=== PATIENT | male | born 1935 | race Caucasian/White ===

== ENCOUNTER 2023-05-03 12:34 | Inpatient (IN) | payer MEDICARE ==
--- NOTE | 2023-05-03 13:20 | ED ---
General Adult HPI - General Source: patient, EMS, RN notes reviewed, old records reviewed Mode of arrival: EMS Limitations: no limitations <Klaus De La Cruz - Last Filed: 05/03/23 14:46> <Salvador Ryan - Last Filed: 05/03/23 18:10> - General Chief complaint: Chest Pain Stated complaint: snycope/chest pain Time Seen by Provider: 05/03/23 13:00 - History of Present Illness Initial comments: This is a an 87-year-old male who presents to the emergency department stating that he was sitting in a chair and he thinks he might of passed out or may have just fall asleep and fell out of his chair. Patient states he hit his knee first and did not injure himself. Patient denies any head trauma. Patient states that he had chest pain when he woke up and it lasted about 30 minutes it was a pressure sensation. Patient states he was also mildly short of breath when he was having chest pain. Patient denies any diaphoretic episode. Patient denies any nausea vomiting. Patient states he has been told in the past he has some narrowing of some vessels. (Klaus De La Cruz) - Related Data Allergies Allergy/AdvReac Type Severity Reaction Status Date / Time No Known Allergies Allergy Verified 05/03/23 14:54 Review of Systems ROS Other: All systems not noted in ROS Statement are negative. <Klaus De La Cruz - Last Filed: 05/03/23 14:46> ROS Other: All systems not noted in ROS Statement are negative. <Salvador Ryan - Last Filed: 05/03/23 18:10> ROS Statement: Those systems with pertinent positive or pertinent negative responses have been documented in the HPI. Past Medical History Past Medical History: Coronary Artery Disease (CAD), COPD, GERD/Reflux, Hypertension Additional Past Medical History / Comment(s): Bladder Cancer, History of Any Multi-Drug Resistant Organisms: None Reported Past Surgical History: Bladder Surgery, Hernia Repair Additional Past Surgical History / Comment(s): Hemorrhoid, vasectomy, Past Psychological History: No Psychological Hx Reported Smoking Status: Former smoker Past Alcohol Use History: None Reported Past Drug Use History: None Reported <Klaus De La Cruz - Last Filed: 05/03/23 14:46> General Exam Limitations: no limitations <Klaus De La Cruz - Last Filed: 05/03/23 14:46> - General Exam Comments Initial Comments: GENERAL: Patient is well-developed and well-nourished. Patient is nontoxic and well-hydr ated and is in no acute distress. ENT: Neck is soft and supple. No significant lymphadenopathy is noted. Oropharynx is clear. Moist mucous membranes. Neck has full range of motion without eliciting any pain. EYES: The sclera were anicteric and conjunctiva were pink and moist. Extraocular mov ements were intact and pupils were equal round and reactive to light. Eyelids were unremarkable. PULMONARY: Unlabored respirations. Good breath sounds bilaterally. No audible rales rhonchi or wheezing was noted. CARDIOVASCULAR: There is a regular rate and rhythm without any murmurs gallops or rubs. ABDOMEN: Soft and nontender with normal bowel sounds. SKIN: Skin is clear with no lesions or rashes and otherwise unremarkable. NEUROLOGIC: Patient is alert and oriented x3. Cranial nerves II through XII are grossly intact. Motor and sensory are also intact. Normal speech, volume and content. Symmetrical smile. MUSCULOSKELETAL: Normal extremities with adequate strength and full range of motion. No lower extremity swelling or edema. No calf tenderness. LYMPHATICS: No significant lymphadenopathy is noted PSYCHIATRIC: Normal psychiatric evaluation. (Klaus De La Cruz) Course Vital Signs 05/03/23 05/03/23 05/03/23 12:38 13:14 15:19 Temperature 97.6 F Pulse Rate 68 67 68 Respiratory 18 20 18 Rate Blood Pressure 190/87 189/85 173/80 O2 Sat by Pulse 100 98 100 Oximetry 05/03/23 05/03/23 17:12 17:31 Temperature Pulse Rate 53 L 76 Respiratory 16 20 Rate Blood Pressure 199/99 148/79 O2 Sat by Pulse 99 99 Oximetry Medical Decision Making - Lab Data Result diagrams: 05/03/23 13:13 <Klaus De La Cruz - Last Filed: 05/03/23 14:46> - Lab Data Result diagrams: 05/03/23 13:13 05/03/23 13:13 <Salvador Ryan - Last Filed: 05/03/23 18:10> - Medical Decision Making EKG is interpreted by myself. EKG shows a sinus rhythm at 60 bpm NC interval 148 QRS is 85 QT interval 362 QTc is 379. Patient EKG shows no ST segment ovation or depression Was pt. sent in by a medical professional or institution (, [facility], [facility], urgent care, hospital, or skilled nursing...) When possible be specific @ -No Did you speak to anyone other than the patient for history (EMS, parent, family, police, friend...)? What history was obtained from this source @ -No Did you review nursing and triage notes (agree or disagree)? Why? @ -I reviewed and agree with nursing and triage notes Were old charts reviewed (outside hosp., previous admission, EMS record, old EKG, old radiological studies, urgent care reports/EKG's, skilled nursing records)? Report findings @ -No old charts were reviewed Differential Diagnosis (chest pain, altered mental status, abdominal pain women, abdominal pain men, vaginal bleeding, weakness, fever, dyspnea, syncope, headache, dizziness, GI bleed, back pain, seizure, CVA, palpatations, mental health, musculoskeletal)? @ -Differential Chest Pain: Stable Angina, Unstable Angina, STEMI, NSTEMI Aortic Dissection, Pneumothorax, Musculoskeletal, Esophageal Spasm GERD, Cholecystitis, Pancreatitis, Zoster, this is not meant to be an all-inclusive list. EKG interpreted by me (3pts min.). @ -As above X-rays interpreted by me (1pt min.). @ -Chest x-ray shows no acute abnormality CT interpreted by me (1pt min.). @ -None done U/S interpreted by me (1pt. min.). @ -None done What testing was considered but not performed or refused? (CT, X-rays, U/S, labs )? Why? @ -None What meds were considered but not given or refused? Why? @ -None Did you discuss the management of the patient with other professionals (professionals i.e. [facility], [facility], lab, RT, psych nurse, social media coordinator, package drier, teacher, president and chief commercial officer, case mgr)? Give summary @ -I spoke with [facility] hospitalist who agreed to admit the patient Was smoking cessation discussed for >3mins.? @ -No Was critical care preformed (if so, how long)? @ -No Were there social determinants of health that impacted care today? How? (Homelessness, low income, unemployed, alcoholism, drug addiction, transportation, low edu. Level, literacy, decrease access to med. care, longterm, rehab)? @ -No Was there de-escalation of care discussed even if they declined (Discuss DNR or withdrawal of care, Hospice)? DNR status @ -No What co-morbidities impacted this encounter? (DM, HTN, Smoking, COPD, CAD, Can cer, CVA, ARF, Chemo, Hep., AIDS, mental health diagnosis, sleep apnea, morbid obesity)? @ -None Was patient admitted / discharged? Hospital course, mention meds given and route, prescriptions, significant lab abnormalities, going to OR and other pertinent info. @ -Patient initially refused to get any lab work done but after about 2 hours she conceded to get lab work. Patient had no chest pain while in the emergency department. I spoke with [facility] hospitalist they agreed admit the abimael schneider admit the patient and wrote admitting orders Undiagnosed new problem with uncertain prognosis? @ -No Drug Therapy requiring intensive monitoring for toxicity (Heparin, Nitro, Insulin, Cardizem)? @ -No Were any procedures done? @ -No Diagnosis/symptom? @ -Chest pain Acute, or Chronic, or Acute on Chronic? @ -Acute Uncomplicated (without systemic symptoms) or Complicated (systemic symptoms)? @ -Complicated Side effects of treatment? @ -No Exacerbation, Progression, or Severe Exacerbation? @ -No Poses a threat to life or bodily function? How? (Chest pain, USA, SC, pneumonia, PE, COPD, DKA, ARF, appy, cholecystitis, CVA, Diverticulitis, Homicidal, Suicidal, threat to staff... and all critical care pts) @ -Yes this can lead to an SC and endorgan dysfunction (Klaus De La Cruz) The patient was initially seen by previous shift. The EKG initially did not show any significant problems. Patient apparently walked to the bathroom and shortly thereafter he started developing additional chest pain. EKG was rate, blood in the second EKG shows a normal sinus rhythm at a rate of 77. There appears to be some ST depression in leads V2 through V5 as well as the inferior leads. There is no ST elevation per my interpretation. Intervals are normal. His pain seemed to resolve but then later reoccurred and a third EKG was done which shows a normal sinus rhythm at a rate of 85. There is worsened ST depression primarily in V2 through V6 and also slightly in the inferior leads. There is no ST elevation per my interpretation on this EKG and the intervals are normal. Upon reevaluation the patient is complaining of midsternal chest pain. Morphine was ordered and cardiology was contacted. Case is discussed with Dr. Hernandez from cardiology. Patient's troponin did come back elevated at 0.040. Dr. Hernandez recommends nitroglycerin drip. Nitroglycerin paste was removed and the nitroglycerin drip was started. Shortly after talking to Dr. Hernandez, the patient's chest pain completely resolved without any treatment in the morphine was not given. Nitroglycerin drip distal started. Patient also is on a heparin drip. His hyperkalemia is treated by internal medicine. Case is rediscussed with Dr. Hernandez did inform him on patient's improved status. He will evaluate patient in the morning but does not appear to require emergent heart catheterization. Approximately 30 minutes critical care time is utilized and treatment of the patient. (Salvador Ryan) - Lab Data Lab Results 05/03/23 05/03/23 05/03/23 Range/Units 13:13 13:13 13:13 WBC 7.6 (3.8-10.6) k/uL RBC 4.39 (4.30-5.90) m/uL Hgb 13.2 (13.0-17.5) gm/dL Hct 40.8 (39.0-53.0) % MCV 92.9 (80.0-100.0) fL MCH 30.1 (25.0-35.0) pg MCHC 32.4 (31.0-37.0) g/dL RDW 15.5 (11.5-15.5) % Plt Count 180 (150-450) k/uL MPV 7.8 Neutrophils % 78 % Lymphocytes % 15 % Monocytes % 4 % Eosinophils % 1 % Basophils % 1 % Neutrophils # 6.0 (1.3-7.7) k/uL Lymphocytes # 1.1 (1.0-4.8) k/uL Monocytes # 0.3 (0-1.0) k/uL Eosinophils # 0.1 (0-0.7) k/uL Basophils # 0.0 (0-0.2) k/uL PT 11.0 (10.0-12.5) sec INR 1.0 (<1.2) APTT 25.2 (22.0-30.0) sec Sodium 143 (137-145) mmol/L Potassium 5.6 H (3.5-5.1) mmol/L Chloride 116 H (98-107) mmol/L Carbon Dioxide 21 L (22-30) mmol/L Anion Gap 6 mmol/L BUN 26 H (9-20) mg/dL Creatinine 1.15 (0.66-1.25) mg/dL Est GFR (CKD-EPI)AfAm 66 (>60 ml/min/1.73 sqM) Est GFR (CKD-EPI)NonAf 57 (>60 ml/min/1.73 sqM) Glucose 98 (74-99) mg/dL Calcium 9.1 (8.4-10.2) mg/dL Magnesium 2.2 (1.6-2.3) mg/dL Total Bilirubin 0.3 (0.2-1.3) mg/dL AST 18 (17-59) U/L ALT 10 (4-49) U/L Alkaline Phosphatase 87 (38-126) U/L Troponin I (0.000-0.034) ng/mL Total Protein 6.7 (6.3-8.2) g/dL Albumin 3.9 (3.5-5.0) g/dL 05/03/23 Range/Units 13:13 WBC (3.8-10.6) k/uL RBC (4.30-5.90) m/uL Hgb (13.0-17.5) gm/dL Hct (39.0-53.0) % MCV (80.0-100.0) fL MCH (25.0-35.0) pg MCHC (31.0-37.0) g/dL RDW (11.5-15.5) % Plt Count (150-450) k/uL MPV Neutrophils % % Lymphocytes % % Monocytes % % Eosinophils % % Basophils % % Neutrophils # (1.3-7.7) k/uL Lymphocytes # (1.0-4.8) k/uL Monocytes # (0-1.0) k/uL Eosinophils # (0-0.7) k/uL Basophils # (0-0.2) k/uL PT (10.0-12.5) sec INR (<1.2) APTT (22.0-30.0) sec Sodium (137-145) mmol/L Potassium (3.5-5.1) mmol/L Chloride (98-107) mmol/L Carbon Dioxide (22-30) mmol/L Anion Gap mmol/L BUN (9-20) mg/dL Creatinine (0.66-1.25) mg/dL Est GFR (CKD-EPI)AfAm (>60 ml/min/1.73 sqM) Est GFR (CKD-EPI)NonAf (>60 ml/min/1.73 sqM) Glucose (74-99) mg/dL Calcium (8.4-10.2) mg/dL Magnesium (1.6-2.3) mg/dL Total Bilirubin (0.2-1.3) mg/dL AST (17-59) U/L ALT (4-49) U/L Alkaline Phosphatase (38-126) U/L Troponin I 0.040 H* (0.000-0.034) ng/mL Total Protein (6.3-8.2) g/dL Albumin (3.5-5.0) g/dL Disposition Time of Disposition: 14:49 <Klaus De La Cruz - Last Filed: 05/03/23 14:46> Decision Date: 05/03/23 Decision Time: 18:05 <Salvador Ryan - Last Filed: 05/03/23 18:10> Clinical Impression: Chest pain, Acute non-ST elevation myocardial infarction (NSTEMI), Hypertension, Elevated troponin Disposition: ADMITTED IP TO THIS [facility] Condition: Fair
--- NOTE | 2023-05-03 14:35 | XR ---
EXAMINATION TYPE: XR chest 2V DATE OF EXAM: 05/03/2023 COMPARISON: NONE HISTORY: Chest pain. TECHNIQUE: Frontal and lateral views of the chest are obtained. FINDINGS: There is no focal air space opacity, pleural effusion, or pneumothorax seen. The cardiac silhouette size is within normal limits. The osseous structures are intact. IMPRESSION: No acute cardiopulmonary process.
[2023-05-03 14:43] LABS: Basophils % (A) 1 %; Eosinophils # (A) 0.1 k/uL (0-0.7); Eosinophils % (A) 1 %; HCT 40.8 % (39.0-53.0); HGB 13.2 gm/dL (13.0-17.5); Lymphocytes # (A) 1.1 k/uL (1.0-4.8); Lymphocytes % (A) 15 %; MCH 30.1 pg (25.0-35.0); MCHC 32.4 g/dL (31.0-37.0); MCV 92.9 fL (80.0-100.0); Mean Platelet Volume 7.8; Monocytes # (A) 0.3 k/uL (0-1.0); Monocytes % (A) 4 %; Neutrophils % (A) 78 %; Platelet Count 180 k/uL (150-450); RBC 4.39 m/uL (4.30-5.90); RDW 15.5 % (11.5-15.5); WBC 7.6 k/uL (3.8-10.6)
[2023-05-03 14:48] LABS: Partial Thromboplastin Time 25.2 sec (22.0-30.0)
[2023-05-03] MEDS ORDERED: NITROGLYCERIN SL TABS 0.4 MG TAB SUBLINGUAL PRN (14:49)
[2023-05-03 15:08] LABS: ALT 10 U/L (4-49); AST 18 U/L (17-59); African American GFR (CKD) 66 (>60 ml/min/1.73 sqM); Albumin 3.9 g/dL (3.5-5.0); Alkaline Phosphatase 87 U/L (38-126); Anion Gap 6 mmol/L; Blood Urea Nitrogen 26 mg/dL (9-20); Calcium 9.1 mg/dL (8.4-10.2); Carbon Dioxide 21 mmol/L (22-30); Chloride 116 mmol/L (98-107); Glucose 98 mg/dL (74-99); Magnesium 2.2 mg/dL (1.6-2.3); Non-African American GFR(CKD) 57 (>60 ml/min/1.73 sqM); Potassium 5.6 mmol/L (3.5-5.1); Sodium 143 mmol/L (137-145); Total Bilirubin 0.3 mg/dL (0.2-1.3); Total Protein 6.7 g/dL (6.3-8.2)
[2023-05-03] MEDS: NITROGLYCERIN OINT 1 INCH/GM PACKET TOPICAL STA (15:34)
[2023-05-03] MEDS ORDERED: HEPARIN SODIUM 1,000 UN/ML (10ML VL) IV PRN (16:09)
[2023-05-03] MEDS ORDERED: ACETAMINOPHEN TAB 325 MG TAB PO PRN (16:11)
[2023-05-03] MEDS ORDERED: LORazepam 0.5 MG TAB PO PRN (16:11)
[2023-05-03] MEDS ORDERED: HALOPERIDOL ORAL SOLN 10 MG/5 ML CUP PO PRN (16:11)
[2023-05-03] MEDS: SODIUM BICARB 8.4% 50 ML SYR (1 MEQ/ML) IV ONE (16:43)
[2023-05-03] MEDS: DEXTROSE 50% SYRINGE 50 ML IVP ONE (16:45)
[2023-05-03 16:53] LABS: Glucose,Whole Blood 127 mg/dL (70-110)
[2023-05-03] MEDS: INSULIN REGULAR 100 UNIT/ML VIAL (IV) IV ONE (16:54)
[2023-05-03] MEDS: HEPARIN SODIUM 1,000 UN/ML (10ML VL) IV ONE (16:57)
[2023-05-03] MEDS: HEPARIN SOD,PORK IN 0.45% NACL 25,000 UNIT in 0.45% NACL 1 250ML.BAG IV SCH (17:00)
[2023-05-03] MEDS: MORPHINE SULFATE 4 MG/ML SYRINGE IV STA (17:17)
[2023-05-03] MEDS: CLOPIDOGREL 75 MG TAB PO SCH (17:19)
[2023-05-03] MEDS: ISOSORBIDE MONONITRATE 20 MG TAB PO SCH (17:19)
[2023-05-03] MEDS: CALCIUM GLUCONATE IN NACL 1 GM in SALINE 1 100ML.BAG IVPB ONE (17:30)
[2023-05-03] MEDS ORDERED: NITROGLYCERIN OINT 1 INCH/GM PACKET TOPICAL SCH (18:00)
[2023-05-03] MEDS: SODIUM ZIRCONIUM CYCLOSILICATE 10 GM PACKET PO ONE ×2 (18:03→18:15)
[2023-05-03] MEDS: NITROGLYCERIN-D5W PMX 50 MG in DEXTROSE/WATER 1 250ML.BAG IV SCH (18:10)
[2023-05-03] MEDS: METOPROLOL TARTRATE 50 MG TAB PO SCH (22:04)
[2023-05-04 07:22] LABS: Partial Thromboplastin Time 47.2 sec (22.0-30.0); Prothrombin Time 20.2 sec (10.0-12.5)
--- NOTE | 2023-05-04 07:33 | P.CRDCN ---
History of Present Illness Consult date: 05/04/23 Consult reason: chest pain History of present illness: History of present illness: This is an 87-year-old old male patient of Dr. Smith with past medical history of hypertension, tobacco use dependence, bladder cancer. We have been asked to evaluate the patient for chest pain. EKG Chest x-ray: No acute process CBC within normal limits. INR 2. Sodium 143, potassium 5.6, chloride 116, CO2 21, BUN 26, creatinine 1.15. Repeat potassium 4.6. Blood sugar 127. Calcium 9.1. Magnesium 2.2. Troponin 0.04, 0.068, 0.106. Liver function test are within normal limits. Home cardiac medications: Amlodipine 5 mg daily, aspirin 81 mg daily, Plavix 75 mg daily, Imdur 20 mg 3 times daily, Lopressor 50 mg twice daily. Review Of Systems: At the time of my exam: CONSTITUTIONAL: Denies fever or chills. HEENT: Denies blurred vision, vision changes, or eye pain. Denies hemoptysis CARDIOVASCULAR: Denies chest pain. Denies orthopnea. Denies PND. Denies palpitations RESPIRATORY: Denies shortness of breath. GASTROINTESTINAL: Denies abdominal pain. Denies nausea or vomiting. HEMATOLOGIC: Denies bleeding disorders. GENITOURINARY: Denies any blood in urine. SKIN: Denies pruitis. Denies rash. Physical examination: Gen: This is a [ ] VS: reviewed HEENT: Head is atraumatic, normocephalic. Pupils equal, round. Sclerae is anicteric. NECK: Supple. No JVD. LUNGS: Clear to auscultation. No wheezes or rhonchi. No intercostal retractions. HEART: Regular rate and rhythm. No murmur. ABDOMEN: Soft No tenderness. EXTREMITIES: No pedal edema. No calf tenderness. NEUROLOGICAL: Patient is awake, alert and oriented x3. Assessment: [ ] Plan: Resume patient's home cardiac medications Obtain 2-D echocardiogram and Doppler study to assess cardiac structure and function Further recommendations to follow based upon clinical course Thank you kindly for this consultation. Nurse practitioner note has been reviewed, I agree with documented findings and plan of care. Patient was seen and examined. Past Medical History Past Medical History: Coronary Artery Disease (CAD), COPD, GERD/Reflux, Hypertension Additional Past Medical History / Comment(s): Bladder Cancer, History of Any Multi-Drug Resistant Organisms: None Reported Past Surgical History: Bladder Surgery, Hernia Repair Additional Past Surgical History / Comment(s): Hemorrhoid, vasectomy, Past Psychological History: No Psychological Hx Reported Smoking Status: Former smoker Past Alcohol Use History: None Reported Past Drug Use History: None Reported Medications and Allergies Home Medications Medication Instructions Recorded Confirmed Type Acetaminophen Suppository [Tylenol 650 mg RECTAL Q4H PRN 05/03/23 05/03/23 History Suppository] Acetaminophen Tab [Tylenol] 650 mg PO Q6H PRN 05/03/23 05/03/23 History Aspirin 81 mg PO DAILY 05/03/23 05/03/23 History Clopidogrel [Plavix] 75 mg PO DAILY 05/03/23 05/03/23 History Haloperidol Oral Soln [Haldol Oral 0.5 mg PO Q4H PRN 05/03/23 05/03/23 History Soln] Hyoscyamine Sulfate [Levsin-Sl] 0.125 - 0.25 mg SL Q4H PRN 05/03/23 05/03/23 History Isosorbide Mononitrate [Ismo] 20 mg PO TID 05/03/23 05/03/23 History LORazepam [Ativan] 0.5 mg PO Q4H PRN 05/03/23 05/03/23 History MORPHINE ORAL [place] CONC 20mg/mL 5 mg PO Q4H PRN 05/03/23 05/03/23 History [Roxanol Oral Soln Conc 20MG/ML] Metoprolol Tartrate [Lopressor] 50 mg PO BID 05/03/23 05/03/23 History Pantoprazole [Protonix] 40 mg PO DAILY 05/03/23 05/03/23 History amLODIPine [Norvasc] 5 mg PO DAILY 05/03/23 05/03/23 History bisacodyL [Dulcolax] 10 mg RECTAL DAILY PRN 05/03/23 05/03/23 History Allergies Allergy/AdvReac Type Severity Reaction Status Date / Time No Known Allergies Allergy Verified 05/03/23 14:54 Physical Exam Vitals: Vital Signs Temp Pulse Resp BP Pulse Ox 05/04/23 06:00 51 L 15 112/60 98 05/04/23 05:00 50 L 17 134/69 97 05/04/23 04:42 47 L 16 134/69 96 05/04/23 03:00 49 L 16 137/72 98 05/04/23 02:00 49 L 17 134/69 98 05/04/23 01:00 56 L 16 121/64 99 05/04/23 00:00 60 18 121/67 99 05/03/23 23:00 54 L 20 117/70 99 05/03/23 22:00 58 L 21 138/77 99 05/03/23 21:00 61 18 131/73 99 05/03/23 20:00 64 21 130/76 99 05/03/23 18:48 80 20 132/88 98 05/03/23 17:31 76 20 148/79 99 05/03/23 17:12 53 L 16 199/99 99 05/03/23 15:19 68 18 173/80 100 05/03/23 14:00 171/90 05/03/23 13:14 67 20 189/85 98 05/03/23 13:08 194/88 05/03/23 12:38 97.6 F 68 18 190/87 100 Intake and Output 05/03/23 05/04/23 05/04/23 22:59 06:59 14:59 Intake Total 38.456 Balance 38.456 Intake: Intake, IV Titration 38.456 Amount Heparin Sod,Pork in 0.45% 38.456 NaCl 25,000 unit In 0.45 % NaCl 1 250ml.bag @ 12 UNITS/KG/HR 5.28 mls/hr IV .Q24H [facility] Rx#: [id number] Results 05/03/23 13:13 05/03/23 20:18 Cardiac Enzymes 05/03/23 05/03/23 05/03/23 Range/Units 13:13 13:13 16:45 AST 18 (17-59) U/L Troponin I 0.040 H* 0.068 H* (0.000-0.034) ng/mL 05/03/23 Range/Units 20:18 AST (17-59) U/L Troponin I 0.106 H* (0.000-0.034) ng/mL Coagulation 05/03/23 05/03/23 05/04/23 Range/Units 13:13 22:26 07:02 PT 11.0 20.2 H (10.0-12.5) sec APTT 25.2 55.2 H 47.2 H (22.0-30.0) sec CBC 05/03/23 Range/Units 13:13 WBC 7.6 (3.8-10.6) k/uL RBC 4.39 (4.30-5.90) m/uL Hgb 13.2 (13.0-17.5) gm/dL Hct 40.8 (39.0-53.0) % Plt Count 180 (150-450) k/uL Comprehensive Metabolic Panel 05/03/23 05/03/23 Range/Units 13:13 20:18 Sodium 143 (137-145) mmol/L Potassium 5.6 H 4.6 (3.5-5.1) mmol/L Chloride 116 H (98-107) mmol/L Carbon Dioxide 21 L (22-30) mmol/L BUN 26 H (9-20) mg/dL Creatinine 1.15 (0.66-1.25) mg/dL Glucose 98 (74-99) mg/dL Calcium 9.1 (8.4-10.2) mg/dL AST 18 (17-59) U/L ALT 10 (4-49) U/L Alkaline Phosphatase 87 (38-126) U/L Total Protein 6.7 (6.3-8.2) g/dL Albumin 3.9 (3.5-5.0) g/dL Current Medications Generic Name Dose Route Start Last Admin Trade Name Freq PRN Reason Stop Dose Admin Acetaminophen 650 mg 05/03/23 16:11 Acetaminophen Tab 325 Mg Tab PO Q6H PRN Pain Amlodipine Besylate 5 mg 05/04/23 09:00 Amlodipine 5 Mg Tab PO DAILY [facility] Aspirin 325 mg 05/04/23 09:00 Aspirin 325 Mg Tab PO DAILY [facility] Clopidogrel Bisulfate 75 mg 05/03/23 16:15 05/03/23 17:19 Clopidogrel 75 Mg Tab PO 75 mg DAILY [facility] Administration Haloperidol Lactate 0.5 mg 05/03/23 16:11 Haloperidol Oral Soln 10 Mg/5 Ml Cup PO Q4H PRN agitation/anxiety/nausea Heparin Sodium (Porcine) 0 unit 05/03/23 16:09 Heparin Sodium 1,000 Un/Ml (10ml Vl) IV PER PROTOCOL PRN Low PTT Protocol Heparin Sodium/Sodium Chloride 250 mls @ 5.28 mls/hr 05/03/23 16:15 05/04/23 00:17 25,000 unit/ Sodium Chloride IV 12 units/kg/hr .Q24H [facility] 5.28 mls/hr Titration Protocol 12 UNITS/KG/HR Nitroglycerin/Dextrose 50 mg/ 250 mls @ 6 mls/hr 05/03/23 17:30 05/03/23 18:10 IV Solution IV 20 mcg/min .Q24H [facility] 6 mls/hr Administration Protocol 20 MCG/MIN Isosorbide Mononitrate 20 mg 05/03/23 16:15 05/03/23 22:04 Isosorbide Mononitrate 20 Mg Tab PO 20 mg TID [facility] Administration Lorazepam 0.5 mg 05/03/23 16:11 Lorazepam 0.5 Mg Tab PO Q4H PRN agitation/anxiety/nausea Metoprolol Tartrate 50 mg 05/03/23 21:00 05/03/23 22:04 Metoprolol Tartrate 50 Mg Tab PO 50 mg BID [facility] Administration Nitroglycerin 0.4 mg 05/03/23 14:49 Nitroglycerin Sl Tabs 0.4 Mg Tab SUBLINGUAL Q5M PRN Chest Pain Pantoprazole Sodium 40 mg 05/04/23 07:30 Pantoprazole 40 Mg Tablet PO AC-BRKFST [facility] Intake and Output 05/03/23 05/04/23 05/04/23 22:59 06:59 14:59 Intake Total 38.456 Balance 38.456 Intake: Intake, IV Titration 38.456 Amount Heparin Sod,Pork in 0.45% 38.456 NaCl 25,000 unit In 0.45 % NaCl 1 250ml.bag @ 12 UNITS/KG/HR 5.28 mls/hr IV .Q24H [facility] Rx#: [id number] 05/03/23 13:13 05/03/23 20:18
[2023-05-04] MEDS: amLODIPine 5 MG TAB PO SCH (08:51)
[2023-05-04] MEDS: PANTOPRAZOLE 40 MG TABLET PO SCH (08:51)
[2023-05-04] MEDS: ASPIRIN 325 MG TAB PO SCH (08:51)
[2023-05-04] MEDS: ASPIRIN 81 MG PO SCH (08:58)
[2023-05-04] MEDS: RANOLAZINE 500 MG TAB.ER.12H PO SCH (08:58)
--- NOTE | 2023-05-04 09:44 | P.PN ---
Subjective Progress Note Date: 05/04/23 Consult reason: chest pain History of present illness: History of present illness: This is an 87-year-old old male patient of Dr. Smith with past medical history of hypertension, tobacco use dependence, bladder cancer. We have been asked to evaluate the patient for chest pain. Patient gives history that he had a cardiac catheterization done elsewhere was recommended medical therapy and hospice care. Patient states he was on hospice care and was taken off because he was past the 6-month apart. He denies having any chest pain at this time. He has been started on Nitropaste, nitro drip, heparin drip. Patient is seen today in the emergency center waiting for bed on the cardiac stepdown unit. EKG sinus rhythm Chest x-ray: No acute process CBC within normal limits. INR 2. Sodium 143, potassium 5.6, chloride 116, CO2 21, BUN 26, creatinine 1.15. Repeat potassium 4.6. Blood sugar 127. Calcium 9.1. Magnesium 2.2. Troponin 0.04, 0.068, 0.106. Liver function test are within normal limits. Home cardiac medications: Amlodipine 5 mg daily, aspirin 81 mg daily, Plavix 75 mg daily, Imdur 20 mg 3 times daily, Lopressor 50 mg twice daily. Review Of Systems: At the time of my exam: CONSTITUTIONAL: Denies fever or chills. HEENT: Denies blurred vision, vision changes, or eye pain. Denies hemoptysis CARDIOVASCULAR: Denies chest pain. Denies orthopnea. Denies PND. Denies palpitations RESPIRATORY: Denies shortness of breath. GASTROINTESTINAL: Denies abdominal pain. Denies nausea or vomiting. HEMATOLOGIC: Denies bleeding disorders. GENITOURINARY: Chronic Martínez SKIN: Denies pruitis. Denies rash. Physical examination: Gen: This is a frail-appearing 87-year-old male in no acute distress VS: reviewed HEENT: Head is atraumatic, normocephalic. Pupils equal, round. Sclerae is anicteric. NECK: Supple. No JVD. LUNGS: Clear to auscultation. No wheezes or rhonchi. No intercostal retractions. HEART: Regular rate and rhythm. Systolic murmur. ABDOMEN: Soft No tenderness. EXTREMITIES: No pedal edema. No calf tenderness. NEUROLOGICAL: Patient is awake, alert and oriented x3. Assessment: Non-ST elevated ME, medical management Hypertension Bladder cancer Plan: Resume patient's home cardiac medications Discontinue nitroglycerin drip and Nitropaste Continue isosorbide 20 mg 3 times daily Start patient on Ranexa 500 mg every 12 hours Continue heparin drip another 24 hours Start patient on aspirin 81 mg daily, atorvastatin 40 mg at bedtime Obtain 2-D echocardiogram and Doppler study to assess cardiac structure and function Further recommendations to follow based upon clinical course Thank you kindly for this consultation. Nurse practitioner note has been reviewed, I agree with documented findings and plan of care. Patient was seen and examined. Objective - Vital Signs Vital signs: Vital Signs Temp 97.6 F 05/03/23 12:38 Pulse 51 L 05/04/23 06:00 Resp 15 05/04/23 06:00 BP 112/60 05/04/23 06:00 Pulse Ox 98 05/04/23 06:00 FiO2 Intake & Output 05/03/23 05/04/23 05/04/23 18:59 06:59 18:59 Intake Total 38.456 Balance 38.456 Weight 43.998 kg Intake: Intake, IV Titration 38.456 Amount Heparin Sod,Pork in 0.45% 38.456 NaCl 25,000 unit In 0.45 % NaCl 1 250ml.bag @ 12 UNITS/KG/HR 5.28 mls/hr IV .Q24H [facility] Rx#: [id number] - Labs CBC & Chem 7: 05/03/23 13:13 05/03/23 20:18 Labs: Abnormal Lab Results - Last 24 Hours (Table) 05/03/23 05/03/23 05/03/23 Range/Units 13:13 13:13 16:45 PT (10.0-12.5) sec INR (<1.2) APTT (22.0-30.0) sec Potassium 5.6 H (3.5-5.1) mmol/L Chloride 116 H (98-107) mmol/L Carbon Dioxide 21 L (22-30) mmol/L BUN 26 H (9-20) mg/dL POC Glucose (mg/dL) (70-110) mg/dL Troponin I 0.040 H* 0.068 H* (0.000-0.034) ng/mL 02/05/03/23 05/03/23 Range/Units 16:51 20:18 22:26 PT (10.0-12.5) sec INR (<1.2) APTT 55.2 H (22.0-30.0) sec Potassium (3.5-5.1) mmol/L Chloride (98-107) mmol/L Carbon Dioxide (22-30) mmol/L BUN (9-20) mg/dL POC Glucose (mg/dL) 127 H (70-110) mg/dL Troponin I 0.106 H* (0.000-0.034) ng/mL 05/04/23 Range/Units 07:02 PT 20.2 H (10.0-12.5) sec INR 2.0 H (<1.2) APTT 47.2 H (22.0-30.0) sec Potassium (3.5-5.1) mmol/L Chloride (98-107) mmol/L Carbon Dioxide (22-30) mmol/L BUN (9-20) mg/dL POC Glucose (mg/dL) (70-110) mg/dL Troponin I (0.000-0.034) ng/mL
[2023-05-04 10:36] LABS: Basophils # (A) 0.1 k/uL (0-0.2); Basophils % (A) 1 %; Eosinophils # (A) 0.3 k/uL (0-0.7); Eosinophils % (A) 4 %; HCT 37.5 % (39.0-53.0); HGB 11.9 gm/dL (13.0-17.5); Lymphocytes # (A) 1.2 k/uL (1.0-4.8); Lymphocytes % (A) 18 %; MCHC 31.8 g/dL (31.0-37.0); MCV 94.5 fL (80.0-100.0); Monocytes # (A) 0.3 k/uL (0-1.0); Monocytes % (A) 4 %; Neutrophils % (A) 72 %; Platelet Count 179 k/uL (150-450); RBC 3.97 m/uL (4.30-5.90); RDW 15.4 % (11.5-15.5); WBC 6.9 k/uL (3.8-10.6)
--- NOTE | 2023-05-04 10:52 | P.HPIM ---
History of Present Illness H&P Date: 05/04/23 History of present illness; Patient is a 87-year-old gentleman with past medical history significant for hypertension, bladder cancer who presented to the ER for possible syncopal episode. Patient stated that he was sitting in his chair and he thinks that he might have passed out as he found himself on the floor, he hit his knee first. Following that he started experiencing chest pain which was central in location, pressure-like, nonradiating, associated with shortness of breath, no aggravating or relieving factor associated chest pain. There was no complaint of palpitation. He denies any nausea vomiting or abdominal pain. Because of this, patient came to the ER Initial lab work done in the ER showed WBC 7.6, hemoglobin 13.2, platelet count 180, sodium 143, potassium 5.6, BUN 26, creatinine 1.15, calcium 9.1, magnesium 2.2, troponin 0.040 total protein 6.7 EKG done in the ER showed heart rate of 68, no ST segment elevation or depression seen, T-wave inversions seen in aVL. Chest x-ray done in the ER showed no acute cardiopulmonary process Patient admitted to internal medicine service REVIEW OF SYSTEMS: CONSTITUTIONAL: No fever, no malaise, no fatigue. HEENT: No recent visual problems or hearing problems. Denied any sore throat. CARDIOVASCULAR: As mentioned above PULMONARY: No shortness of breath, no cough, no hemoptysis. GASTROINTESTINAL: No diarrhea, no nausea, no vomiting, no abdominal pain. NEUROLOGICAL: No headaches, no weakness, no numbness. HEMATOLOGICAL: Denies any bleeding or petechiae. GENITOURINARY: Denies any burning micturition, frequency, or urgency. MUSCULOSKELETAL/RHEUMATOLOGICAL: Denies any joint pain, swelling, or any muscle pain. ENDOCRINE: Denies any polyuria or polydipsia. The rest of the 14-point review of systems is negative. PHYSICAL EXAMINATION: GENERAL: The patient is alert and oriented x3, not in any acute distress. Well developed, well nourished. HEENT: Pupils are round and equally reacting to light. EOMI. No scleral icterus. No conjunctival pallor. Normocephalic, atraumatic. No pharyngeal erythema. No thyromegaly. CARDIOVASCULAR: S1 and S2 present. No murmurs, rubs, or gallops. PULMONARY: Chest is clear to auscultation, no wheezing or crackles. ABDOMEN: Soft, nontender, nondistended, normoactive bowel sounds. No palpable organomegaly. MUSCULOSKELETAL: No joint swelling or deformity. EXTREMITIES: No cyanosis, clubbing, or pedal edema. NEUROLOGICAL: Gross neurological examination did not reveal any focal deficits. SKIN: No rashes. Assessment and plan NSTEMI Syncope Hyperkalemia Hypertension Coronary artery disease Bladder cancer Monitor vital signs Monitor CBC Monitor CMP Continue telemetry monitoring Trend troponins Ordered 2D echo Ordered ultrasound of carotids Continue pharmacy to dose heparin Continue aspirin and Lipitor Resume home meds Consult cardiology Labs and medication were reviewed.. Continue same treatment. Continue with symptomatic treatment. Resume home medication. Monitor labs and vitals. DVT and GI prophylaxis. Further recommendations as per clinical course of the patient Dictation was produced using [employer] dictation software. please excuse any grammatical, word or spelling errors. Past Medical History Past Medical History: Coronary Artery Disease (CAD), COPD, GERD/Reflux, Hypertension Additional Past Medical History / Comment(s): Bladder Cancer, History of Any Multi-Drug Resistant Organisms: None Reported Past Surgical History: Bladder Surgery, Hernia Repair Additional Past Surgical History / Comment(s): Hemorrhoid, vasectomy, Past Psychological History: No Psychological Hx Reported Smoking Status: Former smoker Past Alcohol Use History: None Reported Past Drug Use History: None Reported Medications and Allergies Home Medications Medication Instructions Recorded Confirmed Type Acetaminophen Suppository [Tylenol 650 mg RECTAL Q4H PRN 05/03/23 05/03/23 His tory Suppository] Acetaminophen Tab [Tylenol] 650 mg PO Q6H PRN 05/03/23 05/03/23 History Aspirin 81 mg PO DAILY 05/03/23 05/03/23 History Clopidogrel [Plavix] 75 mg PO DAILY 05/03/23 05/03/23 History Haloperidol Oral Soln [Haldol Oral 0.5 mg PO Q4H PRN 05/03/23 05/03/23 History Soln] Hyoscyamine Sulfate [Levsin-Sl] 0.125 - 0.25 mg SL Q4H PRN 05/03/23 05/03/23 History Isosorbide Mononitrate [Ismo] 20 mg PO TID 05/03/23 05/03/23 History LORazepam [Ativan] 0.5 mg PO Q4H PRN 05/03/23 05/03/23 History MORPHINE ORAL [place] CONC 20mg/mL 5 mg PO Q4H PRN 05/03/23 05/03/23 History [Roxanol Oral Soln Conc 20MG/ML] Metoprolol Tartrate [Lopressor] 50 mg PO BID 05/03/23 05/03/23 History Pantoprazole [Protonix] 40 mg PO DAILY 05/03/23 05/03/23 History amLODIPine [Norvasc] 5 mg PO DAILY 05/03/23 05/03/23 History bisacodyL [Dulcolax] 10 mg RECTAL DAILY PRN 05/03/23 05/03/23 History Allergies Allergy/AdvReac Type Severity Reaction Status Date / Time No Known Allergies Allergy Verified 05/03/23 14:54 Physical Exam Vitals: Vital Signs Temp Pulse Resp BP Pulse Ox 05/04/23 06:00 51 L 15 112/60 98 05/04/23 05:00 50 L 17 134/69 97 05/04/23 04:42 47 L 16 134/69 96 05/04/23 03:00 49 L 16 137/72 98 05/04/23 02:00 49 L 17 134/69 98 05/04/23 01:00 56 L 16 121/64 99 05/04/23 00:00 60 18 121/67 99 05/03/23 23:00 54 L 20 117/70 99 05/03/23 22:00 58 L 21 138/77 99 05/03/23 21:00 61 18 131/73 99 05/03/23 20:00 64 21 130/76 99 05/03/23 18:48 80 20 132/88 98 05/03/23 17:31 76 20 148/79 99 05/03/23 17:12 53 L 16 199/99 99 05/03/23 15:19 68 18 173/80 100 05/03/23 14:00 171/90 05/03/23 13:14 67 20 189/85 98 05/03/23 13:08 194/88 05/03/23 12:38 97.6 F 68 18 190/87 100 Intake and Output 05/03/23 05/04/23 05/04/23 22:59 06:59 14:59 Intake Total 38.456 Balance 38.456 Intake: Intake, IV Titration 38.456 Amount Heparin Sod,Pork in 0.45% 38.456 NaCl 25,000 unit In 0.45 % NaCl 1 250ml.bag @ 12 UNITS/KG/HR 5.28 mls/hr IV .Q24H [facility] Rx#: [id number] Results CBC & Chem 7: 05/04/23 10:04 05/03/23 20:18 Labs: Abnormal Lab Results - Last 24 Hours (Table) 05/03/23 05/03/23 05/03/23 Range/Units 13:13 13:13 16:45 PT (10.0-12.5) sec INR (<1.2) APTT (22.0-30.0) sec Potassium 5.6 H (3.5-5.1) mmol/L Chloride 116 H (98-107) mmol/L Carbon Dioxide 21 L (22-30) mmol/L BUN 26 H (9-20) mg/dL POC Glucose (mg/dL) (70-110) mg/dL Troponin I 0.040 H* 0.068 H* (0.000-0.034) ng/mL 05/03/23 05/03/23 05/03/23 Range/Units 16:51 20:18 22:26 PT (10.0-12.5) sec INR (<1.2) APTT 55.2 H (22.0-30.0) sec Potassium (3.5-5.1) mmol/L Chloride (98-107) mmol/L Carbon Dioxide (22-30) mmol/L BUN (9-20) mg/dL POC Glucose (mg/dL) 127 H (70-110) mg/dL Troponin I 0.106 H* (0.000-0.034) ng/mL 05/04/23 Range/Units 07:02 PT 20.2 H (10.0-12.5) sec INR 2.0 H (<1.2) APTT 47.2 H (22.0-30.0) sec Potassium (3.5-5.1) mmol/L Chloride (98-107) mmol/L Carbon Dioxide (22-30) mmol/L BUN (9-20) mg/dL POC Glucose (mg/dL) (70-110) mg/dL Troponin I (0.000-0.034) ng/mL
--- NOTE | 2023-05-04 11:12 | US ---
EXAMINATION TYPE: US carotid duplex BILAT DATE OF EXAM: 05/04/2023 COMPARISON: NONE CLINICAL INDICATION: Male, 87 years old with history of Syncope; Syncope. TECHNIQUE: Carotid duplex ultrasound examination. Indirect Doppler criteria was utilized. 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 There is hard plaque seen in bilater al bulbs. Elevated velocities seen in bilateral ECA. Left sided ICA difficult to visualize due to narrowing and high bifurcation IMPRESSION: 1. No hemodynamically significant stenosis according to velocities. The ICA on the left side was some what limited in evaluation due to a high bifurcation on this side and tortuosity. This may be better evaluated by CTA. 2. Visible plaque as described above. Criteria for Assigning % of Stenosis / Diameter reduction (Estimation based on the indirect measurements of the internal carotid artery velocities (ICA PSV). 1. Normal (no stenosis)=ICA PSV < 125 cm/s: ratio < 2.0: ICA EDV<40 cm/s. 2. Less than 50% stenosis=ICA PSV < 125 cm/s: ratio < 2.0: ICA EDV<40 cm/s. 3. 50 to 69% stenosis=ICA PSV of 125 to 230 cm/s: ration 2.0 ? 4.0: ICA EDV 40-100 cm/s. 4. Greater than 70% stenosis to near occlusion= ICA PSV > 230 cm/s: ratio > 4.0: ICA EDV > 100 cm/s. 5. Near occlusion= ICA PSV velocities may be low or undetectable: variable ratio and ICA EDV. 6. Total occlusion=unable to detect flow.
[2023-05-04 13:07] LABS: BUN/Creat Ratio 25.09 Ratio (12.00-20.00); Blood Urea Nitrogen 27.6 mg/dL (9.0-27.0); Calcium 8.4 mg/dL (8.7-10.3); Carbon Dioxide 21.4 mmol/L (21.6-31.8); Chloride 115 mmol/L (96-109); Glucose 83 mg/dL (70-110); LDL Cholesterol,Calculated 72.2 mg/dL (0.0-131.0); Potassium 5.4 mmol/L (3.5-5.5); Sodium 145 mmol/L (135-145); VLDL Calculation 15.82 mg/dL (5.00-40.00)
[2023-05-04 15:07] VITALS: BMI 15.6
[2023-05-04] MEDS ORDERED: METOPROLOL TARTRATE 25 MG TAB PO SCH (21:00)
[2023-05-04] MEDS: ATORVASTATIN 40 MG TAB PO SCH (22:40)
--- NOTE | 2023-05-05 09:50 | P.PN ---
Subjective Progress Note Date: 05/05/23 Consult reason: chest pain History of present illness: History of present illness: This is an 87-year-old old male patient of Dr. Smith with past medical history of hypertension, tobacco use dependence, bladder cancer. We have been asked to evaluate the patient for chest pain. Patient gives history that he had a cardiac catheterization done elsewhere was recommended medical therapy and hospice care. Patient states he was on hospice care and was taken off because he was past the 6-month apart. He denies having any chest pain at this time. He has been started on Nitropaste, nitro drip, heparin drip. Patient is seen today in the emergency center waiting for bed on the cardiac stepdown unit. EKG sinus rhythm Chest x-ray: No acute process CBC within normal limits. INR 2. Sodium 143, potassium 5.6, chloride 116, CO2 21, BUN 26, creatinine 1.15. Repeat potassium 4.6. Blood sugar 127. Calcium 9.1. Magnesium 2.2. Troponin 0.04, 0.068, 0.106. Liver function test are within normal limits. Home cardiac medications: Amlodipine 5 mg daily, aspirin 81 mg daily, Plavix 75 mg daily, Imdur 20 mg 3 times daily, Lopressor 50 mg twice daily. 05/05 Patient is seen today on the cardiac stepdown unit. Yesterday we discontinued nitro drip and Nitropaste and started patient on Ranexa. Patient has been on heparin drip now 48 hours and will be discontinued. Patient denies having any chest pain. He states he is anxious to go home today. Blood pressure 121/80, heart rate 51, pulse ox 98% on 2 L nasal cannula. Repeat blood work reveals he moglobin 9.9, chemistry not available. Physical examination: Gen: This is a frail-appearing 87-year-old male in no acute distress VS: reviewed HEENT: Head is atraumatic, normocephalic. Pupils equal, round. Sclerae is anicteric. NECK: Supple. No JVD. LUNGS: Clear to auscultation. No wheezes or rhonchi. No intercostal retractions. HEART: Regular rate and rhythm. Systolic murmur. ABDOMEN: Soft No tenderness. EXTREMITIES: No pedal edema. No calf tenderness. NEUROLOGICAL: Patient is awake, alert and oriented x3. Assessment: Non-ST elevated MO, medical management Hypertension Bladder cancer Plan: Continue patient's home cardiac medications Continue isosorbide 20 mg 3 times daily Continue patient on Ranexa 500 mg every 12 hours Discontinue heparin drip Continue patient on aspirin 81 mg daily, atorvastatin 40 mg at bedtime Obtain 2-D echocardiogram and Doppler study to assess cardiac structure and function If echocardiogram is unremarkable, patient is cleared from cardiology for [facility] home and may follow-up with Dr. Smith in 1 to 2 weeks. Nurse practitioner note has been reviewed, I agree with documented findings and plan of care. Patient was seen and examined. Objective - Vital Signs Vital signs: Vital Signs Temp 96.8 F L 05/04/23 20:00 Pulse 51 L 05/05/23 04:10 Resp 16 05/05/23 04:10 BP 121/80 05/05/23 04:10 Pulse Ox 98 05/05/23 04:10 FiO2 Intake & Output 05/04/23 05/05/23 05/05/23 18:59 06:59 18:59 Weight 43.998 kg Other: Voiding Method Indwelling Catheter Indwelling Catheter - Labs CBC & Chem 7: 05/04/23 10:04 05/04/23 07:02 Labs: Abnormal Lab Results - Last 24 Hours (Table) 05/04/23 05/04/23 Range/Units 07:02 10:04 RBC 3.97 L (4.30-5.90) m/uL Hgb 11.9 L (13.0-17.5) gm/dL Hct 37.5 L (39.0-53.0) % Chloride 115 H (96-109) mmol/L Carbon Dioxide 21.4 L (21.6-31.8) mmol/L BUN 27.6 H (9.0-27.0) mg/dL BUN/Creatinine Ratio 25.09 H (12.00-20.00) Ratio Calcium 8.4 L (8.7-10.3) mg/dL
--- NOTE | 2023-05-05 13:10 | P.PN ---
Subjective Progress Note Date: 05/05/23 Patient is a 87-year-old gentleman with past medical history significant for hypertension, bladder cancer who presented to the ER for possible syncopal episode. Patient stated that he was sitting in his chair and he thinks that he might have passed out as he found himself on the floor, he hit his knee first. Following that he started experiencing chest pain which was central in location, pressure-like, nonradiating, associated with shortness of breath, no aggravating or relieving factor associated chest pain. There was no complaint of palpitation. He denies any nausea vomiting or abdominal pain. Because of this, patient came to the ER Initial lab work done in the ER showed WBC 7.6, hemoglobin 13.2, platelet count 180, sodium 143, potassium 5.6, BUN 26, creatinine 1.15, calcium 9.1, magnesium 2.2, troponin 0.040 total protein 6.7 EKG done in the ER showed heart rate of 68, no ST segment elevation or depression seen, T-wave inversions seen in aVL. Chest x-ray done in the ER showed no acute cardiopulmonary process Patient admitted to internal medicine service 05/05. Patient seen and examined. Cardiology evaluated the patient, recommended starting patient on Ranexa and continue heparin drip for another 24 hours, heparin discontinued. Carotid Doppler done showed no significant stenosis of ICA. Echo pending. Cardiology recommended possible discharge if echo unremarkable REVIEW OF SYSTEMS: CONSTITUTIONAL: No fever, no malaise,. CARDIOVASCULAR: No chest pain, no palpitations, no syncope. PULMONARY: No shortness of breath, no cough, GASTROINTESTINAL: No diarrhea, no nausea, no vomiting, no abdominal pain. NEUROLOGICAL: No headaches, no weakness, PHYSICAL EXAMINATION: GENERAL: The patient is alert and oriented x3, not in any acute distress. Well developed, well nourished. HEENT: Pupils are round and equally reacting to light. EOMI. No scleral icterus. No conjunctival pallor. Normocephalic, atraumatic. No pharyngeal erythema. No thyromegaly. CARDIOVASCULAR: S1 and S2 present. No murmurs, rubs, or gallops. PULMONARY: Chest is clear to auscultation, no wheezing or crackles. ABDOMEN: Soft, nontender, nondistended, normoactive bowel sounds. No palpable organomegaly. MUSCULOSKELETAL: No joint swelling or deformity. EXTREMITIES: No cyanosis, clubbing, or pedal edema. NEUROLOGICAL: Gross neurological examination did not reveal any focal deficits. SKIN: No rashes. Assessment and plan NSTEMI Syncope Hyperkalemia Hypertension Coronary artery disease Bladder cancer Monitor vital signs Monitor CBC Monitor CMP Continue telemetry monitoring Encourage use of incentive spirometer Continue aspirin, Plavix, Lipitor Continue amlodipine Continue Isordil and Ranexa. Echo pending Cardiology following Labs and medication were reviewed.. Continue same treatment. Continue with symptomatic treatment. Resume home medication. Monitor labs and vitals. DVT and GI prophylaxis. Further recommendations as per clinical course of the patient Dictation was produced using [employer] dictation software. please excuse any grammatical, word or spelling errors. Objective - Vital Signs Vital signs: Vital Signs Temp 96.8 F L 05/04/23 20:00 Pulse 51 L 05/05/23 04:10 Resp 16 05/05/23 04:10 BP 121/80 05/05/23 04:10 Pulse Ox 98 05/05/23 04:10 FiO2 Intake & Output 05/04/23 05/05/23 05/05/23 18:59 06:59 18:59 Weight 43.998 kg Other: Voiding Method Indwelling Catheter Indwelling Catheter - Labs CBC & Chem 7: 05/04/23 10:04 05/04/23 07:02 Labs: Abnormal Lab Results - Last 24 Hours (Table) 05/04/23 05/04/23 Range/Units 07:02 10:04 RBC 3.97 L (4.30-5.90) m/uL Hgb 11.9 L (13.0-17.5) gm/dL Hct 37.5 L (39.0-53.0) % Chloride 115 H (96-109) mmol/L Carbon Dioxide 21.4 L (21.6-31.8) mmol/L BUN 27.6 H (9.0-27.0) mg/dL BUN/Creatinine Ratio 25.09 H (12.00-20.00) Ratio Calcium 8.4 L (8.7-10.3) mg/dL
--- NOTE | 2023-05-05 14:29 | CA ---
Transthoracic Echo Report Name: Quinton Hawley Age: 87 Gender: M : 1935 Exam Date: 05/05/2023 10:06 Exam Location: [facility] Ht (in): 64 Wt (lb): 97 Ordering Physician: Christina Haskins Attending/Referring Phys: [id number], [employer] Worker Yvette Ruiz RDCS Procedure CPT: Indications: LVF Cardiac Hx: Technical Quality: Technically difficult study Contrast 1: Definity Total Dose (mL): 2 Contrast 2: Total Dose (mL): MEASUREMENTS (Male / Female) Normal Values 2D ECHO LV Diastolic Diameter PLAX 4.2 cm 4.2 - 5.9 / 3.9 - 5.3 cm LV Systolic Diameter PLAX 2.5 cm IVS Diastolic Thickness 0.8 cm 0.6 - 1.0 / 0.6 - 0.9 cm LVPW Diastolic Thickness 0.9 cm 0.6 - 1.0 / 0.6 - 0.9 cm LV Relative Wall Thickness 0.4 RV Internal Dim ED PLAX 3.1 cm LVOT Diameter 2.5 cm LA Systolic Diameter LX 2.9 cm 3.0 - 4.0 / 2.7 - 3.8 cm LV Diastolic Volume MOD BP 41.6 cm??? 67 - 155 / 56 - 104 cm??? LV Systolic Volume MOD BP 15.6 cm??? 22 - 58 / 19 - 49 cm??? LV Ejection Fraction MOD BP 62.5 % >= 55 % LV Cardiac Index MOD BP 1189.0 cm???/min???m??? LV Diastolic Volume MOD 4C 38.9 cm??? LV Systolic Volume MOD 4C 10.5 cm??? LV Ejection Fraction MOD 4C 73.1 % LV Cardiac Index MOD 4C 1303.8 cm???/min???m??? LV Diastolic Length 4C 7.2 cm LV Systolic Length 4C 5.7 cm LV Diastolic Volume MOD 2C 44.9 cm??? LV Systolic Volume MOD 2C 21.4 cm??? LV Ejection Fraction MOD 2C 52.3 % LV Cardiac Index MOD 2C 1074.7 cm???/min???m??? LV Diastolic Length 2C 7.3 cm LV Systolic Length 2C 6.4 cm LA Volume 42.1 cm??? 18 - 58 / 22 - 52 cm??? LA Volume Index 30.1 cm???/m??? 16 - 28 cm???/m??? M-MODE Aortic Root Diameter MM 2.7 cm DOPPLER AV Peak Velocity 144.5 cm/s AV Peak Gradient 8.4 mmHg AI Peak Velocity 297.9 cm/s AI Peak Gradient 35.5 mmHg AI Pressure Half Time 578.6 ms LVOT Peak Velocity 92.1 cm/s LVOT Peak Gradient 3.4 mmHg AV Area Cont Eq pk 3.1 cm??? MV Area PHT 3.2 cm??? Mitral E Point Velocity 101.4 cm/s Mitral A Point Velocity 92.8 cm/s Mitral E to A Ratio 1.1 MV Deceleration Time 240.1 ms FINDINGS Left Ventricle Left ventricular ejection fraction is estimated at 50-55 %. Left ventricular cavity size normal. Left ventricular wall thickness normal. Normal left ventricular wall motion. Right Ventricle Normal right ventricular size. Unable to estimate the right ventricular systolic pressure. Right Atrium No right atrial thrombus or mass seen. Left Atrium Mildly increased left atrial volume. Mitral Valve Elongation of the anterior mitral valve leaflet. No mitral stenosis, regurgitation or prolapse. Aortic Valve Trileaflet aortic valve,.mild aortic regurgitation. Tricuspid Valve Structurally normal tricuspid valve. No tricuspid regurgitation. Pulmonic Valve Pulmonic valve not well visualized. No pulmonic regurgitation. Pericardium No pericardial effusion. Aorta Normal size aortic root and proximal ascending aorta. CONCLUSIONS Normal LV systolic function Previewed by: Dr. Brian Mello MD (Electronically Signed) Final Date: 05 May 2023 14:28
[2023-05-05] MEDS ORDERED: HEPARIN SODIUM,PORCINE 5,000 UNIT/ML 1 ML VIAL SQ SCH (16:00)
[2023-05-05 16:31] VITALS: BP 157/84; PULSE 80; RESP 17; TEMP 98.2
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
== END 2023-05-05 16:28 | disposition home or self-care (01) | DRG 281 ==
LOC: EC 12:34 → 6NMEDSUR 14:55 → 3SCARD 05-04 05:25 → OBSVTOIN 05-04 10:22 → 3SCARD 05-04 10:53
PROVIDERS: ADMIT Internal Medicine; ATTEND Internal Medicine
DX: I21.4 Non-ST elevation (NSTEMI) myocardial infarction (principal); Z68.1 Body mass index [BMI] 19.9 or less, adult; R62.7 Adult failure to thrive; R54 Age-related physical debility; I10 Essential (primary) hypertension; E87.5 Hyperkalemia; K21.9 Gastro-esophageal reflux disease without esophagitis; I25.119 Atherosclerotic heart disease of native coronary artery with unspecified angina pectoris; Z66 Do not resuscitate; W07.XXXA Fall from chair, initial encounter; Z85.51 Personal history of malignant neoplasm of bladder; Z87.891 Personal history of nicotine dependence; Z28.310 Unvaccinated for COVID-19; Z79.02 Long term (current) use of antithrombotics/antiplatelets; Z79.82 Long term (current) use of aspirin; Z79.899 Other long term (current) drug therapy
CPT/HCPCS: 36415; 71046; 80048; 80053; 80061; 83735; 84132; 84484; 85025; 85610; 85730; 93005; 93306; 93880; 96365; 96366; 96368; 96375; 99285

== ENCOUNTER 2024-01-13 19:13 | Inpatient (IN) | payer MEDICARE ==
--- NOTE | 2024-01-13 19:39 | ED ---
General Adult HPI - General Chief complaint: GI Bleed Stated complaint: Hematemesis Time Seen by Provider: 01/13/24 19:20 Source: patient, EMS Mode of arrival: EMS Limitations: no limitations - History of Present Illness Initial comments: Dictation was produced using [employer] dictation software. please excuse any grammatical, word or spelling errors. Chief Complaint: 88-year-old male with progress prostate cancer presents to the ER for hematemesis History of Present Illness: 88-year-old male presents to the emergency department for hematemesis states that he had some Meals on Wheels last night. This morning at around 8 AM he started to have episodes of hematemesis states that he had 6 episodes of hematemesis since 8 this morning. Complains of some lower abdominal pain that is allegedly told by doctors that he has 3 months to live. He states he is full code. He complains of some lower abdominal pain The ROS documented in this emergency department record has been reviewed and confirmed by me. Those systems with pertinent positive or negative responses have been documented in the HPI. All other systems are other negative and/or noncontributory. - Related Data Home Medications Medication Instructions Recorded Confirmed Aspirin 81 mg PO HS 05/03/23 01/13/24 Clopidogrel [Plavix] 75 mg PO DAILY 05/03/23 01/13/24 amLODIPine [Norvasc] 5 mg PO DAILY 05/03/23 01/13/24 Albuterol Inhaler [Ventolin Hfa 2 puff INHALATION RT-Q4H PRN 01/13/24 01/13/24 Inhaler] Isosorbide Mononitrate ER [Imdur] 30 mg PO DAILY 01/13/24 01/13/24 Metoprolol Succinate (ER) [Toprol 50 mg PO DAILY 01/13/24 01/13/24 Xl] Rosuvastatin [Crestor] 20 mg PO HS 01/13/24 01/13/24 Previous Rx's Medication Instructions Recorded Ranolazine [Ranexa] 500 mg PO Q12HR 30 Days #60 tab 05/05/23 Allergies Allergy/AdvReac Type Severity Reaction Status Date / Time No Known Allergies Allergy Verified 01/13/24 19:39 Review of Systems ROS Statement: Those systems with pertinent positive or pertinent negative responses have been documented in the HPI. ROS Other: All systems not noted in ROS Statement are negative. Past Medical History Past Medical History: Coronary Artery Disease (CAD), COPD, GERD/Reflux, Hypertension, Prostate Disorder Additional Past Medical History / Comment(s): Bladder Cancer, prostate cancer History of Any Multi-Drug Resistant Organisms: None Reported Past Surgical History: Bladder Surgery, Hernia Repair Additional Past Surgical History / Comment(s): Hemorrhoid, vasectomy, Past Psychological History: No Psychological Hx Reported Smoking Status: Former smoker Past Alcohol Use History: None Reported Past Drug Use History: None Reported General Exam - General Exam Comments Initial Comments: [place] PHYSICAL EXAM: General Impression: Alert and oriented x3, not in acute distress HEENT: Normocephalic atraumatic, extra-ocular movements intact, pupils equal and reactive to light bilaterally, mucous membranes moist. Cardiovascular: Heart regular rate and rhythm Chest: Able to complete full sentences, no retractions, no tachypnea Abdomen: abdomen soft, n mild lower abdominal tenderness to palpation r, non- distended, no organomegaly Musculoskeletal: Pulses present and equal in all extremities, no peripheral edema Motor: no focal deficits noted Neurological: CN II-XII grossly intact, no focal motor or sensory deficits noted Skin: Intact with no visualized rashes Psych: Normal affect and mood Rectal exam: No obvious blood Limitations: no limitations Course Vital Signs 01/13/24 19:19 Temperature 98.9 F Pulse Rate 74 Respiratory 16 Rate Blood Pressure 122/74 O2 Sat by Pulse 95 Oximetry EKG Findings - EKG Comments: EKG Findings:: My EKG interpretation: Ventricular rate 79, sinus rhythm,. 149, QRS 87, QTc 376. No MO prolongation, no QTC prolongation, no ST or T-wave changes noted. Overall, this EKG is unremarkable Medical Decision Making - Medical Decision Making Was pt. sent in by a medical professional or institution (, PA, [employer], urgent care, hospital, or prison...) When possible be specific @ -No Did you speak to anyone other than the patient for history (EMS, parent, family, police, friend...)? What history was obtained from this source @ -No Did you review nursing and triage notes (agree or disagree)? Why? @ -I reviewed and agree with nursing and triage notes Were old charts reviewed (outside hosp., previous admission, EMS record, old EKG, old radiological studies, urgent care reports/EKG's, prison records)? Report findings @ -No old charts were reviewed Differential Diagnosis (chest pain, altered mental status, abdominal pain women, abdominal pain men, vaginal bleeding, musculoskeletal, weakness, fever, dyspnea, syncope, headache, dizziness, GI bleed, back pain, seizure, CVA, palpatations, mental health)? @ -Differential GI Bleed: Esophageal varices, aortoenteric fistula, Herminia-Solorzano, gastritis, peptic ulcer disease, diverticulosis, inflammatory bowel disease, hemorrhoids, fissure, colitis, malignancy, Meckel's diverticulum, this is not meant to be an all- inclusive list. EKG interpreted by me (3pts min.). @ -Above X-rays interpreted by me (1pt min.). @ -None done CT interpreted by me (1pt min.). @ -CT abdomen pelvis shows no acute intra-abdominal processes U/S interpreted by me (1pt. min.). @ -None done What testing was considered but not performed or refused? (CT, X-rays, U/S, labs)? Why? @ -None What meds were considered but not given or refused? Why? @ -None Was smoking cessation discussed for >3mins.? @ -No Were there social determinants of health that impacted care today? How? (Homelessness, low income, unemployed, alcoholism, drug addiction, transportation, low edu. Level, literacy, decrease access to med. care, senior living, re hab)? @ -No Was there de-escalation of care discussed even if they declined (Discuss DNR or withdrawal of care, Hospice)? DNR status @ -No What co-morbidities impacted this encounter? (DM, HTN, Smoking, COPD, CAD, Cancer, CVA, ARF, Chemo, Hep., AIDS, mental health diagnosis, sleep apnea, morbid obesity)? @ -Prostate cancer Was patient admitted / discharged? Hospital course, mention meds given and route, prescriptions, significant lab abnormalities, going to OR and other pertinent info. @ -88-year-old male with allegedly terminal prostate cancer presents to the ER for reported hematemesis. Vital signs stable. Patient well-appearing. He has a soft abdomen. Laboratory evaluation is obtained. Globin stable. Acute kidney injury with creatinine of 2.68 with BUN of 53. Cervical blood is negative. Patient reevaluated at bedside at 9:20 PM. He is well-appearing in no acute distress. Asking for water. Case discussed with Dr. Angela Malone who was agreeable with patient be admitted here despite having a acute GI bleed complaint. He will be admitted for MOO with consultation to nephrology. Did you discuss the management of the patient with other professionals (professionals i.e. , PA, [employer], lab, RT, psych nurse, social sciences instructor, smt operator, teacher, military police officer, trimming caser)? Give summary @ -see above Was critical care preformed (if so, how long)? @ -No Undiagnosed new problem with uncertain prognosis? @ -No Drug Therapy requiring intensive monitoring for toxicity (Heparin, Nitro, Insulin, Cardizem)? @ -No Were any procedures done? @ -No Diagnosis/symptom? Acute, or Chronic, or Acute on Chronic? Uncomplicated (without systemic symptoms) or Complicated (systemic symptoms)? @ -MOO Side effects of treatment? @ -No Exacerbation, Progression, or Severe Exacerbation? @ -No Poses a threat to life or bodily function? How? (Chest pain, [place], [place], pneumonia, PE, COPD, DKA, ARF, appy, cholecystitis, CVA, Diverticulitis, Homicidal, Suicidal, threat to staff... and all critical care pts) @ -yes - Lab Data Result diagrams: 01/13/24 19:24 01/13/24 19:24 Lab Results 01/13/24 01/13/24 01/13/24 Range/Units 19:24 19:24 19:24 WBC 8.3 (3.8-10.6) k/uL RBC 4.47 (4.30-5.90) m/uL Hgb 14.6 (13.0-17.5) gm/dL Hct 43.7 (39.0-53.0) % MCV 97.7 (80.0-100.0) fL MCH 32.6 (25.0-35.0) pg MCHC 33.3 (31.0-37.0) g/dL RDW 13.8 (11.5-15.5) % Plt Count 185 (150-450) k/uL MPV 7.9 Neutrophils % (Manual) 48 % Band Neuts % (Manual) 30 % Lymphocytes % (Manual) 8 % Monocytes % (Manual) 14 % Neutrophils # (Manual) 6.40 (1.3-7.7) k/uL Lymphocytes # (Manual) 0.66 L (1.0-4.8) k/uL Monocytes # (Manual) 1.16 H (0-1.0) k/uL Nucleated RBCs 0 (0-0) /100 WBC Manual Slide Review Performed PT 10.6 (10.0-12.5) sec INR 1.0 (<1.2) APTT 24.3 (22.0-30.0) sec Sodium 141 (137-145) mmol/L Potassium 4.9 (3.5-5.1) mmol/L Chloride 99 (98-107) mmol/L Carbon Dioxide 28 (22-30) mmol/L Anion Gap 14 mmol/L BUN 53 H (9-20) mg/dL Creatinine 2.68 H (0.66-1.25) mg/dL Est GFR (CKD-EPI)AfAm 23 (>60 ml/min/1.73 sqM) Est GFR (CKD-EPI)NonAf 20 (>60 ml/min/1.73 sqM) Glucose 139 H (74-99) mg/dL Calcium 10.1 (8.4-10.2) mg/dL Stool Occult Blood (Negative) 01/13/24 Range/Units 19:39 WBC (3.8-10.6) k/uL RBC (4.30-5.90) m/uL Hgb (13.0-17.5) gm/dL Hct (39.0-53.0) % MCV (80.0-100.0) fL MCH (25.0-35.0) pg MCHC (31.0-37.0) g/dL RDW (11.5-15.5) % Plt Count (150-450) k/uL MPV Neutrophils % (Manual) % Band Neuts % (Manual) % Lymphocytes % (Manual) % Monocytes % (Manual) % Neutrophils # (Manual) (1.3-7.7) k/uL Lymphocytes # (Manual) (1.0-4.8) k/uL Monocytes # (Manual) (0-1.0) k/uL Nucleated RBCs (0-0) /100 WBC Manual Slide Review PT (10.0-12.5) sec INR (<1.2) APTT (22.0-30.0) sec Sodium (137-145) mmol/L Potassium (3.5-5.1) mmol/L Chloride (98-107) mmol/L Carbon Dioxide (22-30) mmol/L Anion Gap mmol/L BUN (9-20) mg/dL Creatinine (0.66-1.25) mg/dL Est GFR (CKD-EPI)AfAm (>60 ml/min/1.73 sqM) Est GFR (CKD-EPI)NonAf (>60 ml/min/1.73 sqM) Glucose (74-99) mg/dL Calcium (8.4-10.2) mg/dL Stool Occult Blood Negative (Negative) Disposition Clinical Impression: MOO (acute kidney injury) Disposition: ADMITTED IP TO THIS HOSP Condition: Fair Referrals: None,Stated [Primary Care Provider] - 1-2 days Decision Time: 21:22
[2024-01-13 19:43] LABS: Partial Thromboplastin Time 24.3 sec (22.0-30.0); Prothrombin Time 10.6 sec (10.0-12.5)
[2024-01-13] MEDS: PANTOPRAZOLE 40 MG/10 ML VIAL IVP STA (19:47)
[2024-01-13] MEDS: SODIUM CHLORIDE 0.9% 1,000 ML IV STA (19:47)
[2024-01-13 19:53] LABS: HCT 43.7 % (39.0-53.0); HGB 14.6 gm/dL (13.0-17.5); MCH 32.6 pg (25.0-35.0); MCHC 33.3 g/dL (31.0-37.0); MCV 97.7 fL (80.0-100.0); Mean Platelet Volume 7.9; Platelet Count 185 k/uL (150-450); RBC 4.47 m/uL (4.30-5.90); RDW 13.8 % (11.5-15.5); WBC 8.3 k/uL (3.8-10.6)
[2024-01-13 19:54] LABS: African American GFR (CKD) 23 (>60 ml/min/1.73 sqM); Anion Gap 14 mmol/L; Blood Urea Nitrogen 53 mg/dL (9-20); Calcium 10.1 mg/dL (8.4-10.2); Carbon Dioxide 28 mmol/L (22-30); Chloride 99 mmol/L (98-107); Glucose 139 mg/dL (74-99); Non-African American GFR(CKD) 20 (>60 ml/min/1.73 sqM); Potassium 4.9 mmol/L (3.5-5.1); Sodium 141 mmol/L (137-145)
[2024-01-13 20:21] LABS: Band Neutrophils % 30 %; Lymphocytes # (M) 0.66 k/uL (1.0-4.8); Monocytes # (M) 1.16 k/uL (0-1.0); Neutrophils % (M) 48 %; Nucleated Red Blood Cells 0 /100 WBC (0-0); Total Cells Counted 200
--- NOTE | 2024-01-13 20:54 | CT ---
EXAMINATION TYPE: CT abdomen pelvis wo con DATE OF EXAM: 01/13/2024 8:44 PM COMPARISON: None CLINICAL INDICATION: Male, 88 years old with history of hematemasis, abdominal pain; vomiting blood TECHNIQUE: Axial CT abdomen pelvis wo con;Sagittal and coronal reformats were created on a separate workstation. Contrast used: mL of , (none if empty) Oral contrast used: without Oral Contrast (none if empty) CT DLP: 249.3 mGycm, Automated exposure control for dose reduction was used. FINDINGS: LOWER CHEST: Moderate to severe emphysema changes in the lung bases. ABDOMEN LIVER: Multiple simple and slightly complex hepatic cyst. GALLBLADDER AND BILE DUCTS: Unremarkable. High-density material in the gallbladder lumen with gallsto justa present. Gallstones in the gallbladder neck also thought to be present. PANCREAS: Unremarkable. SPLEEN: Unremarkable. ADRENAL GLANDS: Unremarkable. KIDNEYS AND URETERS: No evidence of hydronephrosis or renal calculus. The ureters are partially visua lized due to lack of IV and oral contrast.. Atrophic left kidney. PELVIS BLADDER: Martínez catheter in appropriate position. Decompressed urinary bladder is present. There is mu ltiple high density probable bladder stones layering in the lateral aspects of the urinary bladder. REPRODUCTIVE: Unremarkable. ABDOMEN & PELVIS STOMACH AND BOWEL: Postsurgical changes right abdomen bowel. No evidence of obstruction. High density material is layering along the inferior aspect of the upper gastric mucosa. Subtle vague area of hyp odensity seen in the middle stomach. Scattered colonic diverticula. No evidence of bowel obstruction. PERITONEUM/RETROPERITONEUM: No evidence of pneumoperitoneum or free fluid. 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 MUSCULOSKELETAL: No acute osseous abnormalities, diffuse osseous demineralization limits evaluation f or fractures. Mild multilevel degeneration changes throughout the spine. Grade 1 anterolisthesis of L 4 and L5. No evidence for spondylolysis. LYMPH NODES: No gross evidence for lymphadenopathy. SOFT TISSUE/ABDOMINAL WALL: Unremarkable IMPRESSION: 1. High density along the inferior lateral aspect of the stomach could possibly represent ingested c ontents versus blood product. Direct visualization with endoscopy recommended. 2. 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 3. Martínez catheter in appropriate position with suspected multiple large bladder stones. 4. Large amount stool in the rectum. 5. Colonic diverticulosis. 6. Cholelithiasis/biliary sludge. 7. Post surgical changes the right abdomen bowel without evidence of obstruction. [facility] Celena Shaw, , 01/13/2024 8:51 PM
[2024-01-13] MEDS ORDERED: NALOXONE 0.4 MG/ML 1 ML VIAL IV PRN (21:15)
[2024-01-13] MEDS: SODIUM CHLORIDE 0.9% 1,000 ML IV SCH (21:38)
--- NOTE | 2024-01-13 23:36 | P.HPIM ---
History of Present Illness H&P Date: 01/13/24 Chief Complaint: "I kept throwing up, throwing up, throwing up, throwing up." Quinton is an 88 y o male patient with a history of bladder cancer, status post bladder removal and currently has a catheter in place for the past 5 years. He presents with nausea and vomiting that began on Sunday and has continued into today. He reports that he has vomited approximately 6 times, filling a bowl each time, and describes the vomit as having fresh blood. He denies having had blood in his bowel movements, has not had any diarrhea, and describes his abdominal pain as a 3 out of 10, localized to the lower abdomen. He reports no dizziness or chest pain but acknowledges taking high blood pressure medication. There has been a recent change in his diet as he suspects he might have eaten spoiled food from [employer]. He expresses concern about the blood in his vomit and the associated pain in his lower abdomen, which is new. Denies any history of GI bleeding History of bladder cancer; currently managed with catheter. Takes medications for high blood pressure. No other chronic medical conditions reported. Quinton lives independently and receives meals from [employer]. He quit smoking 10 years ago and denies using any illicit drugs or significant alcohol consumption. Review of systems Gastrointestinal - reports vomiting with blood, no diarrhea, no black stool. Denies abdominal pain except in the lower area. Denies shortness of breath, chest pain, dizziness, or any other systemic symptoms. Urinary - catheter in place, no other urinary symptoms reported. Denies fever or chills. On exam Vital signs: Temp 98.6F, Pulse 85 bpm, BP 130/80 mmHg, Resp 18 breaths/min, O2 saturation 97% on room air. Physical examination reveals abdominal tenderness in the suprapubic region. Soft abdomen with a reducible abdominal wall hernia noted. Swelling noted in the left leg, attributed to the catheter belt. Overall appearance noted to be cachectic, consistent with advanced age. And history of cancer Lungs:Clear to auscultation Clear to percussion Normal respiratory effort, no accessory muscle use Cardiovascular:Heart regular in rate and rhythm, No murmurs, gallops, or rubs Assessment and plan Quinton presents with acute vomiting and hematemesis. Differential diagnoses include possible gastroenteritis, peptic ulcer disease with bleeding, GI bleeding GI consultation CT of the abdomen showed high density inferior lateral area of the stomach concerning for bleeding, saccular aneurysm above the aortic stent graft 43 mm Martínez catheter plus large bladder stones. N.p.o. IV fluid hydration normal saline 100 cc/h Protonix 40 mg IV push 2 times daily Monitor hemoglobin every 6 hours Initial hemoglobin 14.6 unremarkable, platelets 183 unremarkable, white count 8.3 unremarkable Unremarkable PT 10, INR 1 Fecal occult blood test negative Acute kidney injury BUN 53 creatinine 2.68 Martínez catheter not obstructed at this time with urine in his urinary bag IV fluid hydration with normal saline Monitor renal function Monitor urine output Avoid nephrotoxic meds Full code DVT prophylaxis mechanical secondary to suspected GI bleeding Past Medical History Past Medical History: Coronary Artery Disease (CAD), COPD, GERD/Reflux, Hypertension, Prostate Disorder Additional Past Medical History / Comment(s): Bladder Cancer, prostate cancer History of Any Multi-Drug Resistant Organisms: None Reported Past Surgical History: Bladder Surgery, Hernia Repair Additional Past Surgical History / Comment(s): Hemorrhoid, vasectomy, Past Psychological History: No Psychological Hx Reported Smoking Status: Former smoker Past Alcohol Use History: None Reported Past Drug Use History: None Reported Medications and Allergies Home Medications Medication Instructions Recorded Confirmed Type Aspirin 81 mg PO HS 05/03/23 01/13/24 History Clopidogrel [Plavix] 75 mg PO DAILY 05/03/23 01/13/24 History amLODIPine [Norvasc] 5 mg PO DAILY 05/03/23 01/13/24 History Ranolazine [Ranexa] 500 mg PO Q12HR 30 Days #60 tab 05/05/23 01/13/24 Rx Albuterol Inhaler [Ventolin Hfa 2 puff INHALATION RT-Q4H PRN 01/13/24 01/13/24 History Inhaler] Isosorbide Mononitrate ER [Imdur] 30 mg PO DAILY 01/13/24 01/13/24 History Metoprolol Succinate (ER) [Toprol 50 mg PO DAILY 01/13/24 01/13/24 History Xl] Rosuvastatin [Crestor] 20 mg PO HS 01/13/24 01/13/24 History Allergies Allergy/AdvReac Type Severity Reaction Status Date / Time No Known Allergies Allergy Verified 01/13/24 19:39 Physical Exam Vitals: Vital Signs Temp Pulse Resp BP Pulse Ox 01/13/24 21:30 76 18 169/88 98 01/13/24 19:19 98.9 F 74 16 122/74 95 Intake and Output 01/13/24 01/13/24 01/14/24 14:59 22:59 06:59 Other: Weight 45.359 kg Results CBC & Chem 7: 01/13/24 19:24 01/13/24 19:24 Labs: Abnormal Lab Results - Last 24 Hours (Table) 01/13/24 01/13/24 Range/Units 19:24 19:24 Lymphocytes # (Manual) 0.66 L (1.0-4.8) k/uL Monocytes # (Manual) 1.16 H (0-1.0) k/uL BUN 53 H (9-20) mg/dL Creatinine 2.68 H (0.66-1.25) mg/dL Glucose 139 H (74-99) mg/dL
[2024-01-14 00:56] LABS: HGB 11.9 gm/dL (13.0-17.5); MCH 33.9 pg (25.0-35.0); MCHC 34.1 g/dL (31.0-37.0); MCV 99.5 fL (80.0-100.0); Mean Platelet Volume 8.2; Platelet Count 150 k/uL (150-450); RBC 3.52 m/uL (4.30-5.90); RDW 13.7 % (11.5-15.5); WBC 5.6 k/uL (3.8-10.6)
[2024-01-14 07:04] LABS: HCT 32.2 % (39.0-53.0); HGB 10.9 gm/dL (13.0-17.5); MCH 34.2 pg (25.0-35.0); MCHC 33.7 g/dL (31.0-37.0); MCV 101.3 fL (80.0-100.0); Macrocytosis Slight; Mean Platelet Volume 7.2; Platelet Count 133 k/uL (150-450); RBC 3.18 m/uL (4.30-5.90); RDW 13.4 % (11.5-15.5); WBC 5.1 k/uL (3.8-10.6)
[2024-01-14] MEDS: PANTOPRAZOLE 40 MG/10 ML VIAL IVP SCH (08:23)
[2024-01-14] MEDS: amLODIPine 5 MG TAB PO SCH (08:23)
[2024-01-14] MEDS: ISOSORBIDE MONONITRATE ER 30 MG TAB.ER.24H PO SCH (08:23)
[2024-01-14] MEDS: METOPROLOL SUCCINATE (ER) 50 MG TAB.ER.24H PO SCH (08:23)
[2024-01-14 10:31] LABS: BUN/Creat Ratio 23.82 Ratio (12.00-20.00); Blood Urea Nitrogen 52.4 mg/dL (9.0-27.0); Calcium 8.3 mg/dL (8.7-10.3); Carbon Dioxide 24.1 mmol/L (21.6-31.8); Chloride 104 mmol/L (96-109); Glucose 91 mg/dL (70-110); Potassium 5.4 mmol/L (3.5-5.5); Sodium 140 mmol/L (135-145)
[2024-01-14 12:21] LABS: HCT 29.9 % (39.0-53.0); HGB 9.9 gm/dL (13.0-17.5); MCH 33.3 pg (25.0-35.0); MCHC 33.2 g/dL (31.0-37.0); MCV 100.4 fL (80.0-100.0); Mean Platelet Volume 8.1; Platelet Count 131 k/uL (150-450); RBC 2.98 m/uL (4.30-5.90); RDW 13.2 % (11.5-15.5); WBC 5.1 k/uL (3.8-10.6)
--- NOTE | 2024-01-14 13:42 | P.NPCON ---
History of Present Illness - Reason for Consult acute renal failure - History of Present Illness patient is an 88-year-old male with history of bladder cancer and prostatic cancer status post prostatectomy and neobladder formation and chronic indwelling Martínez catheter. He is admitted to the hospital with history of fresh blood in emesis. Patient has had any dark colored stools. He is maintained on aspirin and Plavix, currently on hold. Hemoglobin dropped from 14.6 on initial admission to 9.9 today. No active bleeding noted today. Serum creatinine was 2.6 on admission and S2 0.2 today. Previous creatinine was 1.1 on 05/04/2023. No hypotension noted. Maintained on IV fluids. Review of Systems as per HPI Past Medical History Past Medical History: Coronary Artery Disease (CAD), COPD, GERD/Reflux, Hypertension, Prostate Disorder Additional Past Medical History / Comment(s): Bladder Cancer, prostate cancer History of Any Multi-Drug Resistant Organisms: None Reported Past Surgical History: Bladder Surgery, Hernia Repair, Prostate Surgery Additional Past Surgical History / Comment(s): Hemorrhoid, vasectomy, Past Anesthesia/Blood Transfusion Reactions: No Reported Reaction Past Psychological History: No Psychological Hx Reported Smoking Status: Former smoker Past Alcohol Use History: None Reported Past Drug Use History: None Reported - Past Family History Mother Additional Family Medical History / Comment(s): from ovarian cancer Medications and Allergies Home Medications Medication Instructions Recorded Confirmed Type Aspirin 81 mg PO HS 05/03/23 01/13/24 History Clopidogrel [Plavix] 75 mg PO DAILY 05/03/23 01/13/24 History amLODIPine [Norvasc] 5 mg PO DAILY 05/03/23 01/13/24 History Ranolazine [Ranexa] 500 mg PO Q12HR 30 Days #60 tab 05/05/23 01/13/24 Rx Albuterol Inhaler [Ventolin Hfa 2 puff INHALATION RT-Q4H PRN 01/13/24 01/13/24 History Inhaler] Isosorbide Mononitrate ER [Imdur] 30 mg PO DAILY 01/13/24 01/13/24 History Metoprolol Succinate (ER) [Toprol 50 mg PO DAILY 01/13/24 01/13/24 History Xl] Rosuvastatin [Crestor] 20 mg PO HS 01/13/24 01/13/24 History Allergies Allergy/AdvReac Type Severity Reaction Status Date / Time No Known Allergies Allergy Verified 01/13/24 19:39 Physical Exam Vitals: Vital Signs Temp Pulse Pulse Resp BP BP Pulse Ox 01/14/24 07:47 98.5 F 70 18 183/74 98 01/14/24 07:15 69 19 136/67 96 01/14/24 06:07 97.0 F L 68 21 141/68 96 01/14/24 03:59 62 15 115/65 95 01/14/24 02:58 72 21 138/66 96 01/14/24 01:00 97.9 F 72 14 126/62 94 L 01/13/24 21:30 76 18 169/88 98 01/13/24 19:19 98.9 F 74 16 122/74 95 Intake and Output 01/13/24 01/14/24 01/14/24 22:59 06:59 14:59 Other: Voiding Method Incontinent Indwelling Catheter Indwelling Catheter Weight 45.359 kg 45.359 kg patient is awake, comfortable, no acute distress. Examination of the heart S1 and S2 Examination of the lungs bilateral breath sounds are heard Abdomen is soft nontender Examination of lower extremities shows 1+ edema left leg, no edema noted in the right leg. Patient wishes the Martínez bag on the left leg which appears to be s lightly tight. Results - Lab Results Most recent lab results Calcium 8.3 mg/dL (8.7-10.3) L 01/14/24 06:09 01/14/24 12:06 01/14/24 06:09 Assessment and Plan Assessment: 1. Acute kidney injury ATN secondary to hypovolemia.maintained on normal saline. Check UA. No evidence of hydronephrosis on CT of the abdomen. Left kidney is atrophic. 2. Acute blood loss anemia from GI bleed 3. GI bleed with surgery on consult. Hemoglobin 9.9. Currently off of Plavix and aspirin. 4. History of bladder cancer and prostatic cancer status post prostatectomy and cystectomy with neobladder formation and chronic indwelling Martínez catheter. Abdominal CT shows possible bladder stones 5. History of hypertension maintained on Norvasc Plan: continue with IV fluids Repeat labs in a.m. Check UA Avoid nephrotoxic agents.
--- NOTE | 2024-01-14 14:43 | P.PN ---
Subjective Progress Note Date: 01/14/24 Hospital Course: 88-year-old male with history of bladder cancer status post bladder removal, c hronic indwelling Martínez catheter, hypertension, CAD, AAA status post stent on dual antiplatelet therapy presenting with acute GI bleed. Hemodynamically stable. Initial hemoglobin was 14.6 now down trended to 9.9, initial creatinine was 2.68, improved with IV fluids to 2.2. General surgery consulted. 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 Subjective: Patient seen and examined at bedside. No acute events overnight. Denies any acute bleeding at the moment. Pertinent positives and negatives as discussed above, a complete review of systems was performed and all other systems are negative. Vitals Signs Reviewed. General: Nontoxic, no distress, appears at stated age Derm: Warm, dry Head: Atraumatic, normocephalic, symmetric Eyes: EOMI, no lid lag, anicteric sclera Mouth: No lip lesion, mucus membranes moist Cardiovascular: S1S2 reg, no murmur Lungs: CTA bilateral, no rhonchi, no rales, no accessory muscle use Abdominal: Soft, nontender to palpation, no guarding, no appreciable organomegal y Ext: No gross muscle atrophy, no edema, no contractures Neuro: CN II-XI grossly intact, no focal neuro deficits Psych: Alert, oriented, appropriate affect Data Reviewed Today: Pertinent Labs: Hemoglobin 9.9, platelet 131, creatinine 2.2, potassium 5.4 Imaging: No new imaging Assessment and Plan: Active: Acute GI bleed -40 mg IV twice daily Protonix -Hold dual antiplatelet therapy -General Surgery consulted, GI not available -CBC every 6 hours -Currently hemodynamically stable -Keep n.p.o. Acute kidney injury, nonoliguric secondary to hypovolemia -Resolving with IV fluids, continue normal saline 130 cc an hour -Nephrology note reviewed, continue current therapy Chronic: Hypertension Chronic indwelling Martínez catheter History of bladder cancer status post resection History of prostate cancer History of CAD-hold dual antiplatelet therapy DVT ppx: SCDs Code status: Full code Anticipated discharge place: Pending clinical course Anticipated discharge time: Pending clinical course Objective - Vital Signs Vital signs: Vital Signs Temp 98.6 F 01/14/24 14:00 Pulse 77 01/14/24 14:00 Resp 17 01/14/24 14:00 BP 116/75 01/14/24 14:00 Pulse Ox 98 01/14/24 14:00 FiO2 Intake & Output 01/13/24 01/14/24 01/14/24 18:59 06:59 18:59 Weight 45.359 kg 45.359 kg Other: Voiding Method Incontinent Indwelling Catheter Indwelling Catheter - Labs CBC & Chem 7: 01/14/24 12:06 01/14/24 06:09 Labs: Abnormal Lab Results - Last 24 Hours (Table) 01/13/24 01/13/24 01/14/24 Range/Units 19:24 19:24 00:35 RBC 3.52 L (4.30-5.90) m/uL Hgb 11.9 L (13.0-17.5) gm/dL Hct 35.0 L (39.0-53.0) % MCV (80.0-100.0) fL Plt Count (150-450) k/uL Lymphocytes # (Manual) 0.66 L (1.0-4.8) k/uL Monocytes # (Manual) 1.16 H (0-1.0) k/uL BUN 53 H (9-20) mg/dL Creatinine 2.68 H (0.66-1.25) mg/dL Est GFR (CKD-EPI) (>=60) BUN/Creatinine Ratio (12.00-20.00) Ratio Glucose 139 H (74-99) mg/dL Calcium (8.7-10.3) mg/dL 01/14/24 01/14/24 01/14/24 Range/Units 06:09 06:09 12:06 RBC 3.18 L 2.98 L (4.30-5.90) m/uL Hgb 10.9 L 9.9 L (13.0-17.5) gm/dL Hct 32.2 L 29.9 L (39.0-53.0) % MCV 101.3 H 100.4 H (80.0-100.0) fL Plt Count 133 L 131 L (150-450) k/uL Lymphocytes # (Manual) (1.0-4.8) k/uL Monocytes # (Manual) (0-1.0) k/uL BUN 52.4 H (9-20) mg/dL Creatinine 2.2 H (0.66-1.25) mg/dL Est GFR (CKD-EPI) 28 L (>=60) BUN/Creatinine Ratio 23.82 H (12.00-20.00) Ratio Glucose (74-99) mg/dL Calcium 8.3 L (8.7-10.3) mg/dL
--- NOTE | 2024-01-14 15:09 | P.GSCN ---
History of Present Illness Consult date: 01/14/24 History of present illness: CHIEF COMPLAINT: Coffee-ground emesis HISTORY OF PRESENT ILLNESS: This is a 88-year-old male who presented to the hospital with complaints of feeling sick after eating Meals on Wheels on night. He became sick on , Sunday and Sunday. Patient reports that he had multiple episodes of vomiting and was unable to eat. The e mesis was dark and did appear like coffee grounds. He reports has had normal bowel movements. He reports no blood in the stools or black stools. He denies any abdominal pain. Denies any prior history of GI bleed. He does take aspirin and Plavix at home. Last dose of Plavix was yesterday. Hemoglobin on admission was 14.6 down to 9.9. Patient denies being on any NSAIDs. He has never had a E GD. EGD. He reports his last colonoscopy was over 10 years ago and was unremarkable. Patient reports he is feeling better now. PAST MEDICAL HISTORY: Bladder cancer and prostate cancer, coronary artery disease,COPD, GERD/Reflux, Hypertension, Prostate Disorder PAST SURGICAL HISTORY: Cystectomy with neobladder formation and chronic indwelling Martínez catheter and prostatectomy, hernia repair, aortic stent graft MEDICATIONS: See below ALLERGIES: See below SOCIAL HISTORY: No illicit drug use. REVIEW OF SYSTEMS: CONSTITUTIONAL: Denies fever or chills. HEENT: Denies blurred vision, vision changes, or eye pain. Denies hemoptysis CARDIOVASCULAR: Denies chest pain or pressure. RESPIRATORY: No shortness of breath. GASTROINTESTINAL: See HPI for pertinent findings HEMATOLOGIC: Denies bleeding disorders. GENITOURINARY: Denies any blood in urine or increased urinary frequency. SKIN: Denies pruitis. Denies rash. PHYSICAL EXAM: VITAL SIGNS: Reviewed GENERAL: no acute distress. ABDOMEN: Soft. Nondistended. Nontender NEUROLOGIC: Alert and oriented. Cranial nerves II through XII grossly intact. LABORATORY DATA: WBC 5.1 Hgb 14.6 on admission trending downwards from 10.9-9.9 platelets 131 Sodium 140 potassium is 5.4 creatinine 2.2 Fecal occult blood negative IMAGING: CT scan abdomen pelvis reports high density along the inferior lateral aspect of the stomach could possibly represent ingested contents versus blood product. 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 Martínez catheter in appropriate position with suspected multiple large bladder stones. Large amount of stool in the rectum. Colonic diverticulosis. Cholelithiasis/biliary sludge. No evidence of bowel obstruction ASSESSMENT: 1. Acute GI bleed with coffee-ground emesis. CT scan reporting high density along the inferior lateral aspect of the stomach could possibly represent ingested contents versus blood product 2. Acute blood loss anemia 3. Acute kidney injury 4. History of bladder and prostate cancer PLAN: -Patient scheduled for EGD tomorrow with Dr. Roper -Keep patient n.p.o. -Continue IV fluids -Continue IV Protonix twice a day -Continue to hold Plavix and Aspirin -Continue to monitor hemoglobin -Continue to monitor for any signs or symptoms of bleeding Physician Agricultural Agent note has been reviewed by physician. Signing provider agrees with the documented findings, assessment, and plan of care. Attestation Patient seen and examined at bedside. Presented with complaint of feeling sick and significant amount of vomiting. Noticed that vomitus was very dark in color and appeared coffee-ground. On workup, patient appears to have hemoglobin drop from initial hemoglobin of 14.6 down to 9.9. Denies any blood in his stool or dark-colored stool. CT of the abdomen and pelvis was evaluated with high density fluid in the stomach possibly representing blood products. Patient is on Plavix and aspirin which has been held over the past 2 days. Recommend PPI twice daily. Plan for EGD. Hector Herrera DO Past Medical History Past Medical History: Coronary Artery Disease (CAD), COPD, GERD/Reflux, Hype rtension, Prostate Disorder Additional Past Medical History / Comment(s): Bladder Cancer, prostate cancer History of Any Multi-Drug Resistant Organisms: None Reported Past Surgical History: Bladder Surgery, Hernia Repair, Prostate Surgery Additional Past Surgical History / Comment(s): Hemorrhoid, vasectomy, Past Anesthesia/Blood Transfusion Reactions: No Reported Reaction Past Psychological History: No Psychological Hx Reported Smoking Status: Former smoker Past Alcohol Use History: None Reported Past Drug Use History: None Reported - Past Family History Mother Additional Family Medical History / Comment(s): from ovarian cancer Medications and Allergies Home Medications Medication Instructions Recorded Confirmed Type Aspirin 81 mg PO HS 05/03/23 01/13/24 History Clopidogrel [Plavix] 75 mg PO DAILY 05/03/23 01/13/24 History amLODIPine [Norvasc] 5 mg PO DAILY 05/03/23 01/13/24 History Ranolazine [Ranexa] 500 mg PO Q12HR 30 Days #60 tab 05/05/23 01/13/24 Rx Albuterol Inhaler [Ventolin Hfa 2 puff INHALATION RT-Q4H PRN 01/13/24 01/13/24 History Inhaler] Isosorbide Mononitrate ER [Imdur] 30 mg PO DAILY 01/13/24 01/13/24 History Metoprolol Succinate (ER) [Toprol 50 mg PO DAILY 01/13/24 01/13/24 History Xl] Rosuvastatin [Crestor] 20 mg PO HS 01/13/24 01/13/24 History Allergies Allergy/AdvReac Type Severity Reaction Status Date / Time No Known Allergies Allergy Verified 01/13/24 19:39 Surgical - Exam Osteopathic Statement: *. No significant issues noted on an osteopathic structural exam other than those noted in the History and Physical/Consult. Vital Signs Temp Pulse Resp BP Pulse Ox 98.9 F 74 16 122/74 95 01/13/24 19:19 01/13/24 19:19 01/13/24 19:19 01/13/24 19:19 01/13/24 19:19 Results - Labs 01/14/24 16:54 01/14/24 06:09 Abnormal Lab Results - Last 24 Hours (Table) 01/13/24 01/13/24 01/14/24 Range/Units 19:24 19:24 00:35 RBC 3.52 L (4.30-5.90) m/uL Hgb 11.9 L (13.0-17.5) gm/dL Hct 35.0 L (39.0-53.0) % MCV (80.0-100.0) fL Plt Count (150-450) k/uL Lymphocytes # (Manual) 0.66 L (1.0-4.8) k/uL Monocytes # (Manual) 1.16 H (0-1.0) k/uL BUN 53 H (9-20) mg/dL Creatinine 2.68 H (0.66-1.25) mg/dL Est GFR (CKD-EPI) (>=60) BUN/Creatinine Ratio (12.00-20.00) Ratio Glucose 139 H (74-99) mg/dL Calcium (8.7-10.3) mg/dL 01/14/24 01/14/24 01/14/24 Range/Units 06:09 06:09 12:06 RBC 3.18 L 2.98 L (4.30-5.90) m/uL Hgb 10.9 L 9.9 L (13.0-17.5) gm/dL Hct 32.2 L 29.9 L (39.0-53.0) % MCV 101.3 H 100.4 H (80.0-100.0) fL Plt Count 133 L 131 L (150-450) k/uL Lymphocytes # (Manual) (1.0-4.8) k/uL Monocytes # (Manual) (0-1.0) k/uL BUN 52.4 H (9-20) mg/dL Creatinine 2.2 H (0.66-1.25) mg/dL Est GFR (CKD-EPI) 28 L (>=60) BUN/Creatinine Ratio 23.82 H (12.00-20.00) Ratio Glucose (74-99) mg/dL Calcium 8.3 L (8.7-10.3) mg/dL Diabetes panel 01/13/24 01/14/24 Range/Units 19:24 06:09 Sodium 141 140 (137-145) mmol/L Potassium 4.9 5.4 (3.5-5.1) mmol/L Chloride 99 104 (98-107) mmol/L Carbon Dioxide 28 24.1 (22-30) mmol/L BUN 53 H 52.4 H (9-20) mg/dL Creatinine 2.68 H 2.2 H (0.66-1.25) mg/dL Glucose 139 H 91 (74-99) mg/dL Calcium 10.1 8.3 L (8.4-10.2) mg/dL Calcium panel 01/13/24 01/14/24 Range/Units 19:24 06:09 Calcium 10.1 8.3 L (8.4-10.2) mg/dL Pituitary panel 01/13/24 01/14/24 Range/Units 19:24 06:09 Sodium 141 140 (137-145) mmol/L Potassium 4.9 5.4 (3.5-5.1) mmol/L Chloride 99 104 (98-107) mmol/L Carbon Dioxide 28 24.1 (22-30) mmol/L BUN 53 H 52.4 H (9-20) mg/dL Creatinine 2.68 H 2.2 H (0.66-1.25) mg/dL Glucose 139 H 91 (74-99) mg/dL Calcium 10.1 8.3 L (8.4-10.2) mg/dL Adrenal panel 01/13/24 01/14/24 Range/Units 19:24 06:09 Sodium 141 140 (137-145) mmol/L Potassium 4.9 5.4 (3.5-5.1) mmol/L Chloride 99 104 (98-107) mmol/L Carbon Dioxide 28 24.1 (22-30) mmol/L BUN 53 H 52.4 H (9-20) mg/dL Creatinine 2.68 H 2.2 H (0.66-1.25) mg/dL Glucose 139 H 91 (74-99) mg/dL Calcium 10.1 8.3 L (8.4-10.2) mg/dL
[2024-01-14] MEDS: NITROGLYCERIN SL TABS 0.4 MG TAB SUBLINGUAL STA (16:37)
--- NOTE | 2024-01-14 16:39 | XR ---
EXAMINATION TYPE: XR chest 1V DATE OF EXAM: 01/14/2024 COMPARISON: 05/03/2023 HISTORY: Chest pain TECHNIQUE: Single frontal view of the chest is obtained. FINDINGS: There is hyperinflation of the lungs can't volume loss in the upper lobes consistent with marked COPD . There is no acute airspace consolidation. There is no pleural effusion or pneumothorax. The heart and pulmonary vasculature are normal. IMPRESSION: 1. No acute cardiopulmonary disease. 2. COPD. [facility], Workstation: APRYL 01/14/2024 4:36 PM
[2024-01-14] MEDS: ASPIRIN 81 MG PO STA (16:52)
[2024-01-14] MEDS: NITROGLYCERIN OINT 1 INCH/GM PACKET TOPICAL SCH (16:52)
[2024-01-14 17:04] LABS: HCT 33.1 % (39.0-53.0); HGB 10.9 gm/dL (13.0-17.5); MCH 33.3 pg (25.0-35.0); MCV 100.9 fL (80.0-100.0); Macrocytosis Slight; Mean Platelet Volume 7.7; Platelet Count 150 k/uL (150-450); RBC 3.28 m/uL (4.30-5.90); RDW 13.4 % (11.5-15.5); WBC 5.6 k/uL (3.8-10.6)
--- NOTE | 2024-01-14 17:33 | P.EN ---
Called at bedside around 1630 today with concerns of chest pain. Patient claims that he has 8 out of 10 chest tightness going down his left arm. He claims that he has similar pain back in April when he was admitted to the hospital for NSTEMI. No active bleeding at the moment. Patient given sublingual nitroglycerin x 2 which relieved the pain. EKG at bedside did show ST depres sions in lateral leads. Cardiology was consulted. Had direct conversation with cardiology, recommending transfer to [facility]. Also started on nitro patch 1 inch every 8 hours. Chest pain resolved while at bedside. Blood pressure with systolic in the 90s. Continue IV fluids. CBC, troponin pending. Chest x-ray reviewed, did not show any acute process. Aspirin 324 given as there is no current evidence of active bleeding.
[2024-01-14 18:23] LABS: Appearance,Urine Cloudy (Clear); Bacteria,Urine Occasional /hpf; Bilirubin,Urine Negative (Negative); Blood,Urine Small (Negative); Budding Yeast,Urine Few /hpf; Color,Urine Light Yellow; Glucose,Urine (UA) Negative (Negative); Ketones,Urine Negative (Negative); Leukocyte Esterase,Urine Negative (Negative); Mucus,Urine Rare /hpf; Nitrite,Urine Positive (Negative); Protein,Urine Trace (Negative); RBC,Urine 31 /hpf (0-5); Specific Gravity,Urine 1.009 (1.001-1.035); Urobilinogen,Urine <2.0 mg/dL (<2.0); WBC,Urine 10 /hpf (0-5)
[2024-01-14] MEDS: ATORVASTATIN 40 MG TAB PO SCH (19:59)
[2024-01-14 21:43] LABS: HCT 28.8 % (39.0-53.0); HGB 9.6 gm/dL (13.0-17.5); MCH 33.8 pg (25.0-35.0); MCHC 33.4 g/dL (31.0-37.0); MCV 101.2 fL (80.0-100.0); Macrocytosis Slight; Mean Platelet Volume 9.2; Platelet Count 119 k/uL (150-450); RBC 2.85 m/uL (4.30-5.90); RDW 13.3 % (11.5-15.5); WBC 5.1 k/uL (3.8-10.6)
[2024-01-15] MEDS: NITROGLYCERIN SL TABS 0.4 MG TAB SUBLINGUAL PRN (03:24)
[2024-01-15 06:43] LABS: Basophils % (A) 0 %; Eosinophils # (A) 0.1 k/uL (0-0.7); Eosinophils % (A) 1 %; HCT 33.8 % (39.0-53.0); HGB 11.1 gm/dL (13.0-17.5); Lymphocytes # (A) 0.8 k/uL (1.0-4.8); Lymphocytes % (A) 10 %; MCH 33.4 pg (25.0-35.0); MCHC 32.8 g/dL (31.0-37.0); MCV 101.9 fL (80.0-100.0); Macrocytosis Slight; Mean Platelet Volume 7.6; Monocytes # (A) 0.4 k/uL (0-1.0); Monocytes % (A) 5 %; Neutrophils # (A) 6.1 k/uL (1.3-7.7); Neutrophils % (A) 82 %; Platelet Count 145 k/uL (150-450); RBC 3.31 m/uL (4.30-5.90); RDW 13.3 % (11.5-15.5); WBC 7.4 k/uL (3.8-10.6)
[2024-01-15 07:06] LABS: African American GFR (CKD) 44 (>60 ml/min/1.73 sqM); Anion Gap 12 mmol/L; Blood Urea Nitrogen 55 mg/dL (9-20); Calcium 7.9 mg/dL (8.4-10.2); Carbon Dioxide 17 mmol/L (22-30); Chloride 113 mmol/L (98-107); Glucose 66 mg/dL (74-99); Magnesium 2.2 mg/dL (1.6-2.3); Non-African American GFR(CKD) 38 (>60 ml/min/1.73 sqM); Potassium 4.1 mmol/L (3.5-5.1); Sodium 142 mmol/L (137-145)
[2024-01-15] MEDS: MORPHINE SULFATE 2 MG/ML SYRINGE IVP STA (09:03)
[2024-01-15] MEDS: SODIUM CHLORIDE 0.9% 1,000 ML in EMPTY BAG 1 BAG IV SCH (09:45)
[2024-01-15] MEDS ORDERED: ALPRAZolam 0.5 MG TAB PO PRN (09:52)
[2024-01-15] MEDS ORDERED: NITROGLYCERIN SL TABS 0.4 MG TAB SUBLINGUAL PRN (09:52)
[2024-01-15] MEDS ORDERED: ALPRAZolam 0.25 MG TAB PO PRN (09:52)
[2024-01-15] MEDS: ASPIRIN 325 MG TAB PO STA (10:04)
[2024-01-15] MEDS: ATORVASTATIN 80 MG TAB PO STA (10:04)
[2024-01-15] MEDS: IV FLUID CONTINUATION 1,000 ML IV ONE (10:34)
[2024-01-15] MEDS: LIDOCAINE 1% INJ 10MG/ML (20 ML MDV) SQ ONE (10:40)
[2024-01-15] MEDS: MIDAZOLAM 2 MG/2 ML VIAL IVP ONE (10:40)
[2024-01-15] MEDS: fentaNYL (PF) 50 MCG/ML 2 ML AMP IVP ONE (10:47)
--- NOTE | 2024-01-15 10:49 | P.CRDCN ---
History of Present Illness History of present illness: HISTORY OF PRESENT ILLNESS: This is a 88-year-old male with a past medical history significant for hypertension, hyperlipidemia, and reported CAD. Patient used to with Dr. Smith but has not been seen since 2021. We have been asked to see the patient in consultation for chest pain. Patient examined at the bedside. Patient initially presented to the hospital with a chief complaint of vomiting. Patient states that he had gotten Meals on Wheels delivered and he thinks that he ate some spoiled food. He does report having blood in his emesis. He denies any black stool or bright red blood per rectum. Denies hematuria. Patient was initially scheduled for EGD this morning. However the patient has been complaining of chest pain overnight and this morning. EKG completed overnight revealed ST depression in anterior leads. Repeat EKG this morning with ST depression in inferior lateral leads. Patient did receive nitroglycerin with some relief in his chest pain. Vital signs are stable. DIAGNOSTICS: - EKG reveals EKG completed overnight revealed ST depression in anterior leads. Repeat EKG this morning with ST depression in inferior lateral leads. - Chest xray negative for acute process. COPD. - Laboratory data: WBC 7.4. Hemoglobin 11.1. Platelet count 145. Sodium 142. Potassium 4.1. BUN 55. Creatinine 1.59. Troponin 0.034. 0.064. 4.000. - Current home cardiac medications include Crestor 20 mg at night, Ranexa 500 mg twice a day, metoprolol succinate 50 mg daily, Imdur 30 mg daily, amlodipine 5 mg daily, Plavix 75 mg daily, and aspirin 81 mg at night - Most recent echocardiogram obtained in 04/2023 failed ejection fraction 50 to 55% with mild aortic regurgitation - Cardiac catheterization history: Unknown REVIEW OF SYSTEMS: At the time of my exam: CONSTITUTIONAL: Denies fever or chills. HEENT: Denies blurred vision, vision changes, or eye pain. Denies hemoptysis CARDIOVASCULAR: + chest pain. Denies orthopnea. Denies PND. Denies palpitations RESPIRATORY: Denies shortness of breath. GASTROINTESTINAL: Denies abdominal pain. Denies nausea or vomiting. HEMATOLOGIC: Denies bleeding disorders. GENITOURINARY: Denies any blood in urine. SKIN: Denies pruitis. Denies rash. PHYSICAL EXAM: VITAL SIGNS: Reviewed. GENERAL: Well-developed in no acute distress. HEENT: Head is normocephalic. Pupils are equal, round. Sclerae anicteric. Mucous membranes of the mouth are moist. Neck supple. No JVD or thyromegaly LUNGS: Respirations even and unlabored. Lungs essentially clear to auscultation bilaterally. HEART: Regular rate and rhythm. S1 and S2 heard. ABDOMEN: Soft. Nondistended. Nontender. EXTREMITIES: Normal range of motion. No clubbing or cyanosis. Peripheral pulses intact. No lower extremity edema NEUROLOGIC: Awake and alert. Oriented x 3. ASSESSMENT: Hematemesis, resolved Non-STEMI with ongoing chest pain Reported history of CAD, per patient, no previous cath records available at this time Acute kidney injury Hypertension Hyperlipidemia History of aortic aneurysm with previous stent grafting PLAN: Obtain 2D echo to assess cardiac structure and function Resume aspirin 81 mg daily Continue additional cardiac medications Case discussed with general surgery. EGD canceled for today. Patient's hemoglobin has remained stable with no further episodes of hematemesis Patient to undergo cardiac catheterization today with Dr. Smith Patient to receive IV hydration post cath secondary to MOO. Repeat kidney function in AM. Further recommendations pending patient course Nurse practitioner note has been reviewed by physician. Signing provider agrees with the documented findings, assessment, and plan of care documented by PROCESS DEVELOPMENT TECHNICIAN as a scribe. Past Medical History Past Medical History: Coronary Artery Disease (CAD), COPD, GERD/Reflux, Hypertension, Prostate Disorder Additional Past Medical History / Comment(s): Bladder Cancer, prostate cancer History of Any Multi-Drug Resistant Organisms: None Reported Past Surgical History: Bladder Surgery, Hernia Repair, Prostate Surgery Additional Past Surgical History / Comment(s): Hemorrhoid, vasectomy, Past Anesthesia/Blood Transfusion Reactions: No Reported Reaction Past Psychological History: No Psychological Hx Reported Smoking Status: Former smoker Past Alcohol Use History: None Reported Past Drug Use History: None Reported - Past Family History Mother Additional Family Medical History / Comment(s): from ovarian cancer Medications and Allergies Home Medications Medication Instructions Recorded Confirmed Type Aspirin 81 mg PO HS 05/03/23 01/13/24 History Clopidogrel [Plavix] 75 mg PO DAILY 05/03/23 01/13/24 History amLODIPine [Norvasc] 5 mg PO DAILY 05/03/23 01/13/24 History Ranolazine [Ranexa] 500 mg PO Q12HR 30 Days #60 tab 05/05/23 01/13/24 Rx Albuterol Inhaler [Ventolin Hfa 2 puff INHALATION RT-Q4H PRN 01/13/24 01/13/24 History Inhaler] Isosorbide Mononitrate ER [Imdur] 30 mg PO DAILY 01/13/24 01/13/24 History Metoprolol Succinate (ER) [Toprol 50 mg PO DAILY 01/13/24 01/13/24 History Xl] Rosuvastatin [Crestor] 20 mg PO HS 01/13/24 01/13/24 History Allergies Allergy/AdvReac Type Severity Reaction Status Date / Time No Known Allergies Allergy Verified 01/13/24 19:39 Physical Exam Vitals: Vital Signs Temp Pulse Resp BP Pulse Ox 01/15/24 08:00 98.5 F 75 18 143/70 96 01/15/24 04:00 98.2 F 72 15 122/72 95 01/14/24 23:55 68 19 131/69 95 01/14/24 19:52 98 F 63 16 112/62 98 01/14/24 19:06 98.1 F 62 18 94/50 91 L 01/14/24 18:28 62 16 103/50 99 01/14/24 17:01 92 L 01/14/24 16:44 77 95/55 95 01/14/24 16:34 73 115/63 01/14/24 14:00 98.6 F 77 17 116/75 98 Intake and Output 01/14/24 01/15/24 01/15/24 22:59 06:59 14:59 Output Total 400 500 Balance -400 -500 Output: Urine 400 500 Other: Voiding Method Indwelling Catheter Indwelling Catheter Weight 59 kg Results 01/15/24 06:10 01/15/24 06:10 Cardiac Enzymes 01/14/24 01/14/24 01/15/24 Range/Units 16:54 21:25 09:06 Troponin I 0.034 0.065 H* 4.000 H* (0.000-0.034) ng/mL CBC 01/14/24 01/14/24 01/14/24 Range/Units 12:06 16:54 21:25 WBC 5.1 5.6 5.1 (3.8-10.6) k/uL RBC 2.98 L 3.28 L 2.85 L (4.30-5.90) m/uL Hgb 9.9 L 10.9 L 9.6 L (13.0-17.5) gm/dL Hct 29.9 L 33.1 L 28.8 L (39.0-53.0) % Plt Count 131 L 150 119 L (150-450) k/uL 01/15/24 Range/Units 06:10 WBC 7.4 (3.8-10.6) k/uL RBC 3.31 L (4.30-5.90) m/uL Hgb 11.1 L (13.0-17.5) gm/dL Hct 33.8 L (39.0-53.0) % Plt Count 145 L (150-450) k/uL Comprehensive Metabolic Panel 01/14/24 01/15/24 Range/Units 06:09 06:10 Sodium 140 142 (135-145) mmol/L Potassium 5.4 4.1 (3.5-5.5) mmol/L Chloride 104 113 H (96-109) mmol/L Carbon Dioxide 24.1 17 L (21.6-31.8) mmol/L BUN 52.4 H 55 H (9.0-27.0) mg/dL Creatinine 2.2 H 1.59 H (0.6-1.5) mg/dL Glucose 91 66 L (70-110) mg/dL Calcium 8.3 L 7.9 L (8.7-10.3) mg/dL Current Medications Generic Name Dose Route Start Last Admin Trade Name Freq PRN Reason Stop Dose Admin Alprazolam 0.25 mg 01/15/24 09:52 Alprazolam 0.25 Mg Tab PO Q6HR PRN Mild Anxiety Alprazolam 0.5 mg 01/15/24 09:52 Alprazolam 0.5 Mg Tab PO Q6HR PRN Moderate Anxiety Amlodipine Besylate 5 mg 01/14/24 09:00 01/14/24 08:23 Amlodipine 5 Mg Tab PO 5 mg DAILY MEDARDO Administration Aspirin 81 mg 01/15/24 09:00 Aspirin 81 Mg PO DAILY MEDARDO Atorvastatin Calcium 40 mg 01/14/24 21:00 01/14/24 19:59 Atorvastatin 40 Mg Tab PO 40 mg HS MEDARDO Administration Sodium Chloride 1,000 mls @ 130 mls/hr 01/13/24 21:15 01/15/24 04:17 Saline 0.9% IV 130 mls/hr .[id number] MEDARDO Administration Heparin Sodium (Porcine) 10, 1,001 mls @ 999 mls/hr 01/15/24 07:00 000 unit/ Sodium Chloride IRRIGATION 01/15/24 23:00 ONCE PRN INTRA-OP Heparin Sodium (Porcine) 2,500 250.5 mls @ 250 mls/hr 01/15/24 07:00 unit/ Sodium Chloride IRRIGATION 01/15/24 23:00 ONCE PRN INTRA-OP Sodium Chloride 1,000 ml/ IV 1,000 mls @ 59 mls/hr 01/15/24 10:00 Solution IV .[id number] MEDARDO 1 ML/KG/HR Isosorbide Mononitrate 30 mg 01/14/24 09:00 01/14/24 08:23 Isosorbide Mononitrate Er 30 Mg Tab.Er.24h PO 30 mg DAILY MEDARDO Administration Metoprolol Succinate 50 mg 01/14/24 09:00 01/14/24 08:23 Metoprolol Succinate (Er) 50 Mg Tab.Er.24h PO 50 mg DAILY MEDARDO Administration Naloxone HCl 0.2 mg 01/13/24 21:15 Naloxone 0.4 Mg/Ml 1 Ml Vial IV Q2M PRN Opioid Reversal Nitroglycerin 0.4 mg 01/14/24 16:41 01/15/24 08:39 Nitroglycerin Sl Tabs 0.4 Mg Tab SUBLINGUAL 0.4 mg Q5M PRN Administration Chest Pain Nitroglycerin 1 inch 01/14/24 17:00 01/15/24 10:10 Nitroglycerin Oint 1 Inch/Gm Packet TOPICAL Not Given Q8HR MEDARDO Nitroglycerin 0.4 mg 01/15/24 09:52 Nitroglycerin Sl Tabs 0.4 Mg Tab SUBLINGUAL Q5M PRN Chest Pain Pantoprazole Sodium 40 mg 01/14/24 09:00 01/15/24 08:38 Pantoprazole 40 Mg/10 Ml Vial IVP 40 mg BID MEDARDO Administration Ranolazine 500 mg 01/15/24 21:00 Ranolazine 500 Mg Tab.Er.12h PO Q12HR MEDARDO Intake and Output 01/14/24 01/15/2401/14/24 22:59 06:59 14:59 Output Total 400 500 Balance -400 -500 Output: Urine 400 500 Other: Voiding Method Indwelling Catheter Indwelling Catheter Weight 59 kg 01/15/24 06:10 01/15/24 06:10
[2024-01-15] MEDS: NITROGLYCERIN-D5W PMX 50 MG in DEXTROSE/WATER 1 250ML.BAG IV ONE (10:57)
[2024-01-15] MEDS: IOPAMIDOL-370 100ML BTL INJ ONE (11:00)
[2024-01-15] MEDS ORDERED: RX INFO: IV CONTRAST WAS GIVEN 1 EACH MISC MISCELLANE PRN (11:03)
[2024-01-15] MEDS ORDERED: HEPARIN SODIUM 1,000 UN/ML (10ML VL) IV PRN (11:06)
--- NOTE | 2024-01-15 11:06 | P.PCN ---
Date of Procedure: 01/15/24 Operative Findings: CARDIAC CATHETERIZATION PERFORMING PHYSICIAN: Meliton Smith MD, RPVI PROCEDURE PERFORMED: 1. Selective right and left coronary angiogram 2. Left heart catheterization 3. Ultrasound-guided access of the right radial artery INDICATION: Acute coronary syndrome COMPLICATION: None APPROACH: Right radial artery LEVEL OF SEDATION: Moderate with a sedation length of 14 minutes PROCEDURE DESCRIPTION: After obtaining an informed consent, the patient was brought to cardiac optical laboratory mechanic. Local anesthesia was performed using lidocaine subcutaneously. The right radial artery was cannulated using Seldinger technique, the guidewire passed easily, following that we advanced a 5-[place]izen [place] sheath dilator assembly, the wire and dilator were removed and sheath was flushed. Following that, 2 mg of verapamil along with 5000 unit heparin were given. Selective right and left coronary angiogram using a 6-[place] JR4 and JL 3.5 catheters. Following that we did left heart catheterization using 6-[place] pigtail catheter. The procedure was completed there was no complication. SELECTIVE CORONARY ANGIOGRAM: The right coronary artery: Large-caliber vessel and a dominant vessel with critical disease involving the proximal portion and diffuse disease involving the midportion Left main: Calcified with at least 50% disease in the midportion The left circumflex: Large-caliber vessel with also diffuse disease up to about 80 to 90% The left anterior descending artery: Large-caliber vessel appears to be subtotally occluded in the midportion and severe disease in the proximal portion HEMODYNAMICS: The LVEDP was about 26 mmHg with no significant gradient across aortic valve CONCLUSION: 1. Calcified right and left coronary system with severe triple-vessel coronary artery disease and severe disease involving the left main coronary artery 2. Elevated left-sided filling pressure POSTPROCEDURE MANAGEMENT: The patient is not a candidate for coronary revascularization percutaneously. Will discuss with him the surgical revascularization and if he agrees we will consider consulting surgery
[2024-01-15] MEDS: HEPARIN SODIUM,PORCINE (1 ML) 2,500 UNIT in SODIUM CHLORIDE 0.9% 250 ML IRRIGATION PRN (11:09)
[2024-01-15] MEDS: HEPARIN SODIUM,PORCINE 10,000 UNIT in SODIUM CHLORIDE 0.9% 1,000 ML IRRIGATION PRN (11:09)
[2024-01-15] MEDS: FUROSEMIDE 10 MG/ML 4 ML VIAL IV ONE (11:10)
[2024-01-15 11:32] LABS: Basophils % (A) 0 %; Eosinophils % (A) 0 %; HCT 34.4 % (39.0-53.0); HGB 11.3 gm/dL (13.0-17.5); Lymphocytes # (A) 0.9 k/uL (1.0-4.8); Lymphocytes % (A) 12 %; MCH 33.4 pg (25.0-35.0); MCHC 32.8 g/dL (31.0-37.0); MCV 101.8 fL (80.0-100.0); Macrocytosis Slight; Mean Platelet Volume 8.3; Monocytes # (A) 0.4 k/uL (0-1.0); Monocytes % (A) 6 %; Neutrophils # (A) 5.7 k/uL (1.3-7.7); Neutrophils % (A) 81 %; Platelet Count 158 k/uL (150-450); RBC 3.38 m/uL (4.30-5.90); RDW 13.2 % (11.5-15.5); WBC 7.1 k/uL (3.8-10.6)
--- NOTE | 2024-01-15 11:43 | CA ---
Transthoracic Echo Report Name: Quinton Hawley Age: 88 Gender: M : 1935 Exam Date: 01/15/2024 09:37 Exam Location: [place] [facility] Ht (in): 66 Wt (lb): 100 Ordering Physician: Taylor Forrest Attending/Referring Phys: Guide Visitor Edith Britton RDCS Procedure CPT: Indications: CP, lv function, elevated trop Cardiac Hx: Technical Quality: Fair Contrast 1: Definity Total Dose (mL): 2 Contrast 2: Total Dose (mL): MEASUREMENTS (Male / Female) Normal Values 2D ECHO LV Diastolic Diameter PLAX 3.8 cm 4.2 - 5.9 / 3.9 - 5.3 cm LV Systolic Diameter PLAX 2.6 cm IVS Diastolic Thickness 0.8 cm 0.6 - 1.0 / 0.6 - 0.9 cm LVPW Diastolic Thickness 0.9 cm 0.6 - 1.0 / 0.6 - 0.9 cm LV Relative Wall Thickness 0.4 RV Internal Dim ED PLAX 1.9 cm LVOT Diameter 1.8 cm LA Systolic Diameter LX 4.0 cm 3.0 - 4.0 / 2.7 - 3.8 cm LA Volume 46.8 cm??? 18 - 58 / 22 - 52 cm??? LA Volume Index 32.6 cm???/m??? 16 - 28 cm???/m??? M-MODE Aortic Root Diameter MM 2.9 cm LA Systolic Diameter MM 3.9 cm LA Ao Ratio MM 1.4 AV Cusp Separation MM 0.8 cm DOPPLER AV Peak Velocity 244.2 cm/s AV Peak Gradient 23.8 mmHg AV Mean Velocity 159.3 cm/s AV Mean Gradient 12.1 mmHg AV Velocity Time Integral 52.9 cm AI Peak Velocity 196.5 cm/s AI Peak Gradient 15.4 mmHg AI Pressure Half Time 786.0 ms LVOT Peak Velocity 96.1 cm/s LVOT Peak Gradient 3.7 mmHg LVOT Velocity Time Integral 24.6 cm LVOT Stroke Volume 65.2 cm??? LVOT Stroke Volume Index 43.8 ml/m??? LVOT Cardiac Index 3266.2 cm???/min???m??? AV Area Cont Eq vti 1.2 cm??? AV Area Cont Eq pk 1.0 cm??? MV Area PHT 3.3 cm??? Mitral E Point Velocity 121.4 cm/s Mitral A Point Velocity 93.6 cm/s Mitral E to A Ratio 1.3 MV Deceleration Time 227.7 ms TR Peak Velocity 291.3 cm/s TR Peak Gradient 33.9 mmHg Right Ventricular Systolic Press 36.6 mmHg FINDINGS Left Ventricle Left ventricular ejection fraction is estimated at 35-40%. Hypokinetic septum. Wall hypokinetic. Left ventricular cavity size normal. Left ventricular wall thickness normal. Right Ventricle Normal right ventricular size and function. Mild pulmonary hypertension. Right Atrium Mild right atrial dilatation. Left Atrium Mildly increased left atrial volume. Mitral Valve Structurally normal mitral valve. Mild mitral regurgitation. No mitral stenosis. Aortic Valve Low-flow aortic stenosis with a peak velocity of 2.4 m/s, peak gradient 23mmHg, mean gradient 12mmHg.diffuse thickening of the aortic valve cusps with reduced excursion. Mild aortic regurgitation. Tricuspid Valve Structurally normal tricuspid valve. Mild tricuspid regurgitation. No tricuspid stenosis. Pulmonic Valve Structurally normal pulmonic valve. Trace pulmonic regurgitation. No pulmonic stenosis. Pericardium Minimal pericardial effusion (normal variant). Aorta Normal size aortic root and proximal ascending aorta. 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 Brian Mello MD (Electronically Signed) Final Date: 15 January 2024 11:43
[2024-01-15] MEDS: NITROGLYCERIN-D5W PMX 50 MG in DEXTROSE/WATER 1 250ML.BAG IV SCH (11:45)
[2024-01-15 11:56] LABS: INR 1.1 (<1.2); Prothrombin Time 11.7 sec (10.0-12.5)
[2024-01-15 12:00] LABS: Partial Thromboplastin Time >200.0 sec (22.0-30.0)
[2024-01-15] MEDS: SODIUM CHLORIDE 0.9% 1,000 ML IV SCH (12:51)
[2024-01-15] MEDS: ASPIRIN 81 MG PO SCH (12:51)
[2024-01-15] MEDS ORDERED: MORPHINE SULFATE 2 MG/ML SYRINGE IVP PRN (12:52)
[2024-01-15] MEDS: DEXTROSE 5%-LACTATED RINGERS 1,000 ML IV SCH (13:09)
--- NOTE | 2024-01-15 14:20 | P.PN ---
Subjective Progress Note Date: 01/15/24 SURGICAL PROGRESS NOTE CHIEF COMPLAINT: Vomiting HISTORY OF PRESENT ILLNESS: Patient initially presented to the hospital with complaints of dark emesis. He was scheduled for EGD today. However, he started having severe chest pains and had a mildly elevated troponin and EKG changes. Patient seen by cardiology and underwent heart catheterization which reported severe triple-vessel coronary artery disease and severe disease involving the left main coronary artery. Patient has had no further emesis. Hemoglobin actually went up from 9.6-11.1 and repeat hemoglobin is 11.3 without any blood transfusions. PHYSICAL EXAM: VITAL SIGNS: Reviewed. GENERAL: Well-developed in no acute distress. ABDOMEN: Soft. Nondistended. Nontender. NEUROLOGIC: Alert and oriented. Cranial nerves II through XII grossly intact. ASSESSMENT: 1. Acute GI bleed with coffee-ground emesis. CT scan reporting high density along the inferior lateral aspect of the stomach could possibly represent ingested contents versus blood product 2. Acute blood loss anemia 3. Acute kidney injury 4. History of bladder and prostate cancer 5. Severe triple-vessel coronary artery disease followed by cardiology PLAN: -EGD canceled for today due to chest pain and cardiac workup -Patient has had no further vomiting. Hemoglobin stable -Agree with heart healthy diet -Continue PPI -Will monitor Physician Billet Shearer note has been reviewed by physician. Signing provider agrees with the documented findings, assessment, and plan of care. Objective - Vital Signs Vital signs: Vital Signs Temp 98.5 F 01/15/24 08:00 Pulse 66 01/15/24 12:48 Resp 15 01/15/24 12:48 BP 119/75 01/15/24 12:48 Pulse Ox 96 01/15/24 12:48 FiO2 Intake & Output 01/14/24 01/15/24 01/15/24 18:59 06:59 18:59 Intake Total 399.7 Output Total 400 500 Balance -400 -100.3 Weight 45.359 kg 59 kg Intake: IV 399.7 Output: Urine 400 500 Other: Voiding Method Indwelling Catheter Indwelling Catheter Indwelling Catheter - Labs CBC & Chem 7: 01/15/24 11:21 01/15/24 06:10 Labs: Abnormal Lab Results - Last 24 Hours (Table) 01/14/24 01/14/24 01/14/24 Range/Units 16:54 18:00 21:25 RBC 3.28 L 2.85 L (4.30-5.90) m/uL Hgb 10.9 L 9.6 L (13.0-17.5) gm/dL Hct 33.1 L 28.8 L (39.0-53.0) % MCV 100.9 H 101.2 H (80.0-100.0) fL Plt Count 119 L (150-450) k/uL Lymphocytes # (1.0-4.8) k/uL APTT (22.0-30.0) sec Chloride (98-107) mmol/L Carbon Dioxide (22-30) mmol/L BUN (9-20) mg/dL Creatinine (0.66-1.25) mg/dL Glucose (74-99) mg/dL Calcium (8.4-10.2) mg/dL Troponin I (0.000-0.034) ng/mL Urine Protein Trace H (Negative) Urine Blood Small H (Negative) Urine RBC 31 H (0-5) /hpf Urine WBC 10 H (0-5) /hpf Urine Bacteria Occasional H (None) /hpf Urine Mucus Rare H (None) /hpf Urine Yeast (Budding) Few H (None) /hpf 01/14/24 01/15/24 01/15/24 Range/Units 21:25 06:10 06:10 RBC 3.31 L (4.30-5.90) m/uL Hgb 11.1 L (13.0-17.5) gm/dL Hct 33.8 L (39.0-53.0) % MCV 101.9 H (80.0-100.0) fL Plt Count 145 L (150-450) k/uL Lymphocytes # 0.8 L (1.0-4.8) k/uL APTT (22.0-30.0) sec Chloride 113 H (98-107) mmol/L Carbon Dioxide 17 L (22-30) mmol/L BUN 55 H (9-20) mg/dL Creatinine 1.59 H (0.66-1.25) mg/dL Glucose 66 L (74-99) mg/dL Calcium 7.9 L (8.4-10.2) mg/dL Troponin I 0.065 H* (0.000-0.034) ng/mL Urine Protein (Negative) Urine Blood (Negative) Urine RBC (0-5) /hpf Urine WBC (0-5) /hpf Urine Bacteria (None) /hpf Urine Mucus (None) /hpf Urine Yeast (Budding) (None) /hpf 01/15/24 01/15/24 01/15/24 Range/Units 09:06 11:21 11:21 RBC 3.38 L (4.30-5.90) m/uL Hgb 11.3 L (13.0-17.5) gm/dL Hct 34.4 L (39.0-53.0) % MCV 101.8 H (80.0-100.0) fL Plt Count (150-450) k/uL Lymphocytes # 0.9 L (1.0-4.8) k/uL APTT >200.0 H* (22.0-30.0) sec Chloride (98-107) mmol/L Carbon Dioxide (22-30) mmol/L BUN (9-20) mg/dL Creatinine (0.66-1.25) mg/dL Glucose (74-99) mg/dL Calcium (8.4-10.2) mg/dL Troponin I 4.000 H* (0.000-0.034) ng/mL Urine Protein (Negative) Urine Blood (Negative) Urine RBC (0-5) /hpf Urine WBC (0-5) /hpf Urine Bacteria (None) /hpf Urine Mucus (None) /hpf Urine Yeast (Budding) (None) /hpf
--- NOTE | 2024-01-15 15:38 | P.PN ---
Subjective Progress Note Date: 01/15/24 Hospital Course: 88-year-old male with history of bladder cancer status post bladder removal, chronic indwelling Martínez catheter, hypertension, CAD, AAA status post stent on dual antiplatelet therapy presenting with acute GI bleed. Hemodynamically stable. Initial hemoglobin was 14.6 now down trended to 9.9, initial creatinine was 2.68, improved with IV fluids to 2.2. General surgery consulted. 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 During this admission patient complained of sudden onset chest pain. EKG showed ST depression in inferior and anterolateral leads. Troponin level trended upward. Cardiology was consulted for NSTEMI and patient was taken to the [facility] for coronary angiogram. No PCI was performed since patient has severe triple-vessel disease. Patient had poor prognosis for open heart surgery. Decision on consulting cardiothoracic surgeon is pending. Prognosis is guarded. Subjective: Patient seen and examined at bedside. No acute events overnight. Pertinent positives and negatives as discussed above, a complete review of systems was performed and all other systems are negative. Vitals Signs Reviewed. General: Nontoxic, no distress, appears at stated age Derm: Warm, dry Head: Atraumatic, normocephalic, symmetric Eyes: EOMI, no lid lag, anicteric sclera Mouth: No lip lesion, mucus membranes moist Cardiovascular: S1S2 reg, no murmur Lungs: CTA bilateral, no rhonchi, no rales, no accessory muscle use Abdominal: Soft, nontender to palpation, no guarding, no appreciable organomegaly Ext: No gross muscle atrophy, no edema, no contractures Neuro: CN II-XI grossly intact, no focal neuro deficits Psych: Alert, oriented, appropriate affect Data Reviewed Today: Pertinent Labs: Hemoglobin 11.1, MCV 101.9, chloride 113, bicarb 17, BUN 55, creatinine 1.59, calcium 7.9, troponin 4.0 Imaging: No new imaging Assessment and Plan: Active: #NSTEMI status post coronary angiogram with no PCI Patient has severe triple vessel disease Cardiology note reviewed: Cardiothoracic surgery to be consulted with decision pending on CABG Aspirin 81 mg p.o. daily, Lipitor 80 mg p.o. at bedtime For chest pain nitroglycerin sublingual tablet, nitroglycerin patch, morphine 2 mg IVP every 4 hours as needed Heart healthy diet #Acute GI bleed -Hemoglobin improving - No active bleeding - continue with 40 mg IV twice daily Protonix -Resume aspirin 81 mg p.o. daily and hold Plavix 75 mg p.o. daily -General Surgery consulted, GI not available EGD is deferred due to cardiac workup as above -Continue monitoring CBC -Currently hemodynamically stable #Acute kidney injury, nonoliguric secondary to hypovolemia, resolving #Non-anion gap metabolic acidosis secondary to IV normal saline Switch to lactated Ringer with D5 at 130 cc/h Continue monitor BMP Nephrology note reviewed Chronic: Hypertension Chronic indwelling Martínez catheter History of bladder cancer status post resection History of prostate cancer History of CAD-resume aspirin, hold Plavix DVT ppx: Heparin drip Code status: Full code Anticipated discharge place: Pending clinical course Anticipated discharge time: Pending clinical course I have seen and evaluated the patient today. Discussed with the resident and agree with the residents finding and plan as documented in the resident's note. Changes highlighted in blue font. Objective - Vital Signs Vital signs: Vital Signs Temp 98.5 F 01/15/24 08:00 Pulse 69 01/15/24 14:30 Resp 16 01/15/24 14:30 BP 136/68 01/15/24 13:48 Pulse Ox 97 01/15/24 14:30 FiO2 Intake & Output 01/14/24 01/15/24 01/15/24 18:59 06:59 18:59 Intake Total 399.7 Output Total 400 500 Balance -400 -100.3 Weight 45.359 kg 59 kg Intake: IV 399.7 Output: Urine 400 500 Other: Voiding Method Indwelling Catheter Indwelling Catheter Indwelling Catheter - Labs CBC & Chem 7: 01/15/24 11:21 01/15/24 06:10 Labs: Abnormal Lab Results - Last 24 Hours (Table) 01/14/24 01/14/24 01/14/24 Range/Units 16:54 18:00 21:25 RBC 3.28 L 2.85 L (4.30-5.90) m/uL Hgb 10.9 L 9.6 L (13.0-17.5) gm/dL Hct 33.1 L 28.8 L (39.0-53.0) % MCV 100.9 H 101.2 H (80.0-100.0) fL Plt Count 119 L (150-450) k/uL Lymphocytes # (1.0-4.8) k/uL APTT (22.0-30.0) sec Chloride (98-107) mmol/L Carbon Dioxide (22-30) mmol/L BUN (9-20) mg/dL Creatinine (0.66-1.25) mg/dL Glucose (74-99) mg/dL Calcium (8.4-10.2) mg/dL Troponin I (0.000-0.034) ng/mL Urine Protein Trace H (Negative) Urine Blood Small H (Negative) Urine RBC 31 H (0-5) /hpf Urine WBC 10 H (0-5) /hpf Urine Bacteria Occasional H (None) /hpf Urine Mucus Rare H (None) /hpf Urine Yeast (Budding) Few H (None) /hpf 01/14/24 01/15/24 01/15/24 Range/Units 21:25 06:10 06:10 RBC 3.31 L (4.30-5.90) m/uL Hgb 11.1 L (13.0-17.5) gm/dL Hct 33.8 L (39.0-53.0) % MCV 101.9 H (80.0-100.0) fL Plt Count 145 L (150-450) k/uL Lymphocytes # 0.8 L (1.0-4.8) k/uL APTT (22.0-30.0) sec Chloride 113 H (98-107) mmol/L Carbon Dioxide 17 L (22-30) mmol/L BUN 55 H (9-20) mg/dL Creatinine 1.59 H (0.66-1.25) mg/dL Glucose 66 L (74-99) mg/dL Calcium 7.9 L (8.4-10.2) mg/dL Troponin I 0.065 H* (0.000-0.034) ng/mL Urine Protein (Negative) Urine Blood (Negative) Urine RBC (0-5) /hpf Urine WBC (0-5) /hpf Urine Bacteria (None) /hpf Urine Mucus (None) /hpf Urine Yeast (Budding) (None) /hpf 01/15/24 01/15/24 01/15/24 Range/Units 09:06 11:21 11:21 RBC 3.38 L (4.30-5.90) m/uL Hgb 11.3 L (13.0-17.5) gm/dL Hct 34.4 L (39.0-53.0) % MCV 101.8 H (80.0-100.0) fL Plt Count (150-450) k/uL Lymphocytes # 0.9 L (1.0-4.8) k/uL APTT >200.0 H* (22.0-30.0) sec Chloride (98-107) mmol/L Carbon Dioxide (22-30) mmol/L BUN (9-20) mg/dL Creatinine (0.66-1.25) mg/dL Glucose (74-99) mg/dL Calcium (8.4-10.2) mg/dL Troponin I 4.000 H* (0.000-0.034) ng/mL Urine Protein (Negative) Urine Blood (Negative) Urine RBC (0-5) /hpf Urine WBC (0-5) /hpf Urine Bacteria (None) /hpf Urine Mucus (None) /hpf Urine Yeast (Budding) (None) /hpf
[2024-01-15] MEDS: HEPARIN SOD,PORK IN 0.45% NACL 25,000 UNIT in 0.45% NACL 1 250ML.BAG IV SCH (18:11)
[2024-01-15] MEDS: RANOLAZINE 500 MG TAB.ER.12H PO SCH (20:04)
[2024-01-15] MEDS: ATORVASTATIN 80 MG TAB PO SCH (20:04)
[2024-01-16 07:44] LABS: Basophils % (A) 0 %; Eosinophils # (A) 0.2 k/uL (0-0.7); Eosinophils % (A) 3 %; HCT 35.3 % (39.0-53.0); HGB 11.8 gm/dL (13.0-17.5); Lymphocytes # (A) 0.8 k/uL (1.0-4.8); Lymphocytes % (A) 12 %; MCH 33.8 pg (25.0-35.0); MCHC 33.4 g/dL (31.0-37.0); MCV 101.1 fL (80.0-100.0); Mean Platelet Volume 8.2; Monocytes # (A) 0.4 k/uL (0-1.0); Monocytes % (A) 6 %; Neutrophils # (A) 5.5 k/uL (1.3-7.7); Neutrophils % (A) 78 %; Platelet Count 159 k/uL (150-450); RDW 13.2 % (11.5-15.5)
[2024-01-16 07:57] LABS: Partial Thromboplastin Time 63.6 sec (22.0-30.0)
[2024-01-16 08:48] LABS: African American GFR (CKD) 47 (>60 ml/min/1.73 sqM); Anion Gap 9 mmol/L; Blood Urea Nitrogen 46 mg/dL (9-20); Carbon Dioxide 21 mmol/L (22-30); Chloride 114 mmol/L (98-107); Glucose 111 mg/dL (74-99); Non-African American GFR(CKD) 40 (>60 ml/min/1.73 sqM); Potassium 3.3 mmol/L (3.5-5.1); Sodium 144 mmol/L (137-145)
[2024-01-16] MEDS ORDERED: ISOSORBIDE MONONITRATE ER 60 MG TAB.ER.24H PO SCH (09:00)
[2024-01-16] MEDS ORDERED: RANOLAZINE 500 MG TAB.ER.12H PO SCH (09:00)
[2024-01-16] MEDS: RANOLAZINE 500 MG TAB.ER.12H PO ONE (09:30)
[2024-01-16] MEDS: ISOSORBIDE MONONITRATE ER 30 MG TAB.ER.24H PO ONE (09:30)
[2024-01-16] MEDS: lisinopriL 5 MG TAB PO SCH (10:29)
[2024-01-16] MEDS: POTASSIUM CHLORIDE ER 20 MEQ TAB.ER PO STA (11:32)
[2024-01-16] MEDS: DAPAGLIFLOZIN PROPANEDIOL 5 MG TABLET PO SCH (11:32)
[2024-01-16] MEDS: CLOPIDOGREL 75 MG TAB PO SCH (11:41)
--- NOTE | 2024-01-16 11:44 | P.PN ---
Subjective HISTORY OF PRESENT ILLNESS: This is a 88-year-old male with a past medical history significant for hypertension, hyperlipidemia, and reported CAD. Patient used to with Dr. Smith but has not been seen since 2021. We have been asked to see the patient in consultation for chest pain. Patient examined at the bedside. Patient initially presented to the hospital with a chief complaint of vomiting. Patient states that he had gotten Meals on Wheels delivered and he thinks that he ate some spoiled food. He does report having blood in his emesis. He denies any black stool or bright red blood per rectum. Denies hematuria. Patient was initially scheduled for EGD this morning. However the patient has been complaining of chest pain overnight and this morning. EKG completed overnight revealed ST depression in anterior leads. Repeat EKG this morning with ST depression in inferior lateral leads. Patient did receive nitroglycerin with some relief in his chest pain. Vital signs are stable. DIAGNOSTICS: - EKG reveals EKG completed overnight revealed ST depression in anterior leads. Repeat EKG this morning with ST depression in inferior lateral leads. - Chest xray negative for acute process. COPD. - Laboratory data: WBC 7.4. Hemoglobin 11.1. Platelet count 145. Sodium 142. Potassium 4.1. BUN 55. Creatinine 1.59. Troponin 0.034. 0.064. 4.000. - Current home cardiac medications include Crestor 20 mg at night, Ranexa 500 mg twice a day, metoprolol succinate 50 mg daily, Imdur 30 mg daily, amlodipine 5 mg daily, Plavix 75 mg daily, and aspirin 81 mg at night - Most recent echocardiogram obtained in 04/2023 failed ejection fraction 50 to 55% with mild aortic regurgitation - Cardiac catheterization history: Unknown 01/16/2024 Patient underwent cardiac catheterization yesterday with Dr. Smith revealing severe triple-vessel coronary artery disease and severe disease involving the left main coronary artery. Elevated left-sided filling pressures. Patient examined this morning the bedside. Patient currently denies chest pain or pressure. He denies shortness of breath. He states he is feeling well this morning. Telemetry reveals sinus mechanism with heart rate in the 90s. He remains on IV heparin and IV nitro. Echocardiogram completed revealing ejection fraction 35 to 40% with hypokinesis of septum and apex, mild pulmonary hypertension, low-flow aortic stenosis, mild aortic regurgitation PHYSICAL EXAM: VITAL SIGNS: Reviewed. GENERAL: Well-developed in no acute distress. HEENT: Head is normocephalic. Pupils are equal, round. Sclerae anicteric. Mucous membranes of the mouth are moist. Neck supple. No JVD or thyromegaly LUNGS: Respirations even and unlabored. Lungs essentially clear to auscultation bilaterally. HEART: Regular rate and rhythm. S1 and S2 heard. ABDOMEN: Soft. Nondistended. Nontender. EXTREMITIES: Normal range of motion. No clubbing or cyanosis. Peripheral pulses intact. No lower extremity edema NEUROLOGIC: Awake and alert. Oriented x 3. ASSESSMENT: Hematemesis, resolved Non-STEMI, status post cardiac catheterization revealing severe triple-vessel CAD and severe disease involving the left main Ischemic cardiomyopathy, EF 35 to 40% Acute kidney injury Hypertension Hyperlipidemia History of aortic aneurysm with previous stent grafting PLAN: Patient not a candidate for PCI. Extremely unlikely that patient would be CABG candidate. Discussed with patient this morning who agrees not to pursue surgical workup. We will continue with medical management at this time Continue IV heparin for additional 24 hours Discontinue IV nitro Add Plavix 75 mg daily Increase Imdur to 60 mg daily Increase Ranexa to 1000 mg twice a day Add FREIDA/ARB when acute kidney injury resolves Patient started on Farxiga per internal medicine Further recommendations pending patient course Nurse practitioner note has been reviewed by physician. Signing provider agrees with the documented findings, assessment, and plan of care documented by SOCIAL SCIENCE ANALYST as a scribe. Objective - Vital Signs Vital signs: Vital Signs Temp 97.7 F 01/16/24 07:51 Pulse 75 01/16/24 09:30 Resp 19 01/16/24 07:51 BP 109/59 01/16/24 09:30 Pulse Ox 96 01/16/24 07:51 FiO2 Intake & Output 01/15/24 01/16/24 01/16/24 18:59 06:59 18:59 Intake Total 999.7 50.858 360 Output Total 1860 371 4379 Balance -0.3 -649.142 -1090 Weight 62 kg Intake: IV 399.7 Intake, IV Titration 50.858 Amount Heparin Sod,Pork in 0.45% 50.858 NaCl 25,000 unit In 0.45 % NaCl 1 250ml.bag @ 12 UNITS/KG/HR 7.08 mls/hr IV .Q24H MEDARDO Rx#: [id number] Oral 600 360 Output: Urine 3480 435 6737 Other: Voiding Method Indwelling Catheter Indwelling Catheter Indwelling Catheter - Labs CBC & Chem 7: 01/16/24 07:26 01/16/24 07:26 Labs: Abnormal Lab Results - Last 24 Hours (Table) 01/15/24 01/15/24 01/16/24 Range/Units 11:21 11:21 00:37 RBC 3.38 L (4.30-5.90) m/uL Hgb 11.3 L (13.0-17.5) gm/dL Hct 34.4 L (39.0-53.0) % MCV 101.8 H (80.0-100.0) fL Lymphocytes # 0.9 L (1.0-4.8) k/uL APTT >200.0 H* 106.2 H* (22.0-30.0) sec Potassium (3.5-5.1) mmol/L Chloride (98-107) mmol/L Carbon Dioxide (22-30) mmol/L BUN (9-20) mg/dL Creatinine (0.66-1.25) mg/dL Glucose (74-99) mg/dL Calcium (8.4-10.2) mg/dL 01/16/24 01/16/24 01/16/24 Range/Units 07:26 07:26 07:26 RBC 3.50 L (4.30-5.90) m/uL Hgb 11.8 L (13.0-17.5) gm/dL Hct 35.3 L (39.0-53.0) % MCV 101.1 H (80.0-100.0) fL Lymphocytes # 0.8 L (1.0-4.8) k/uL APTT 63.6 H (22.0-30.0) sec Potassium 3.3 L (3.5-5.1) mmol/L Chloride 114 H (98-107) mmol/L Carbon Dioxide 21 L (22-30) mmol/L BUN 46 H (9-20) mg/dL Creatinine 1.52 H (0.66-1.25) mg/dL Glucose 111 H (74-99) mg/dL Calcium 8.0 L (8.4-10.2) mg/dL
--- NOTE | 2024-01-16 12:15 | P.PN ---
Subjective patient is seen for follow-up for acute kidney injury. Serum creatinine improved to 1.5 from 2.6 on initial admission. Maintained on IV fluids. Status post cardiac catheterization on 01/15/2024 which showed severe triple- vessel disease. Objective - Vital Signs Vital signs: Vital Signs Temp 97.7 F 01/16/24 07:51 Pulse 71 01/16/24 11:58 Resp 17 01/16/24 11:58 BP 114/63 01/16/24 11:58 Pulse Ox 97 01/16/24 11:58 FiO2 Intake & Output 01/15/24 01/16/24 01/16/24 18:59 06:59 18:59 Intake Total 999.7 50.858 405.489 Output Total 0940 309 7282 Balance -0.3 -649.142 -1044.511 Weight 62 kg Intake: IV 399.7 Intake, IV Titration 50.858 45.489 Amount Heparin Sod,Pork in 0.45% 50.858 45.489 NaCl 25,000 unit In 0.45 % NaCl 1 250ml.bag @ 12 UNITS/KG/HR 7.08 mls/hr IV .Q24H [facility] Rx#: [id number] Oral 600 360 Output: Urine 9821 399 5178 Other: Voiding Method Indwelling Catheter Indwelling Catheter Indwelling Catheter - Exam patient is awake, comfortable, no acute distress. Examination of the heart S1 and S2 Examination of the lungs bilateral breath sounds are heard Abdomen is soft nontender Examination of lower extremities shows 1+ edema left leg, no edema noted in the right leg. Patient wishes the Martínez bag on the left leg which appears to be slightly tight. - Labs CBC & Chem 7: 01/16/24 07:26 01/16/24 07:26 Labs: Abnormal Lab Results - Last 24 Hours (Table) 01/16/24 01/16/24 01/16/24 Range/Units 00:37 07:26 07:26 RBC 3.50 L (4.30-5.90) m/uL Hgb 11.8 L (13.0-17.5) gm/dL Hct 35.3 L (39.0-53.0) % MCV 101.1 H (80.0-100.0) fL Lymphocytes # 0.8 L (1.0-4.8) k/uL APTT 106.2 H* (22.0-30.0) sec Potassium 3.3 L (3.5-5.1) mmol/L Chloride 114 H (98-107) mmol/L Carbon Dioxide 21 L (22-30) mmol/L BUN 46 H (9-20) mg/dL Creatinine 1.52 H (0.66-1.25) mg/dL Glucose 111 H (74-99) mg/dL Calcium 8.0 L (8.4-10.2) mg/dL 01/16/24 Range/Units 07:26 RBC (4.30-5.90) m/uL Hgb (13.0-17.5) gm/dL Hct (39.0-53.0) % MCV (80.0-100.0) fL Lymphocytes # (1.0-4.8) k/uL APTT 63.6 H (22.0-30.0) sec Potassium (3.5-5.1) mmol/L Chloride (98-107) mmol/L Carbon Dioxide (22-30) mmol/L BUN (9-20) mg/dL Creatinine (0.66-1.25) mg/dL Glucose (74-99) mg/dL Calcium (8.4-10.2) mg/dL Assessment and Plan Assessment: 1. Acute kidney injury ATN secondary to hypovolemia, maintained on normal saline. UAshows trace protein and small blood. No evidence of hydronephrosis on CT of the abdomen. Left kidney is atrophic. 2. Acute blood loss anemia from GI bleed 3. GI bleed with surgery on consult. No active bleeding noted. Maintained on IV heparin for acute [place] 4. History of bladder cancer and prostatic cancer status post prostatectomy and cystectomy with neobladder formation and chronic indwelling Martínez catheter. Abdominal CT shows possible bladder stones 5. non-ST elevation [place] status post cardiac catheterization on 01/14/2024 which showed severe triple-vessel disease 6. Ischemic cardiomyopathy EF of 35-40% 7. History of aortic aneurysm with previous stent graft Plan: continue with SGLT2i Repeat labs in a.m.
[2024-01-16 12:53] VITALS: BMI 22.0
--- NOTE | 2024-01-16 14:11 | P.PN ---
Subjective Progress Note Date: 01/16/24 SURGICAL PROGRESS NOTE CHIEF COMPLAINT: Vomiting HISTORY OF PRESENT ILLNESS: Patient initially presented to the hospital with complaints of dark emesis. EGD canceled yesterday due to cardiac issues. Prerna lee has had no further vomiting. He is tolerating diet. Denies any abdominal pain. Currently denies any chest pain. He is followed by cardiology. Vital stable. Hemoglobin stable 11.8. Cardiology has added Plavix. PHYSICAL EXAM: VITAL SIGNS: Reviewed. GENERAL: Well-developed in no acute distress. ABDOMEN: Soft. Nondistended. Nontender. NEUROLOGIC: Alert and oriented. Cranial nerves II through XII grossly intact. ASSESSMENT: 1. Acute GI bleed with coffee-ground emesis. CT scan reporting high density along the inferior lateral aspect of the stomach could possibly represent inges alicia contents versus blood product 2. Acute blood loss anemia 3. Acute kidney injury 4. History of bladder and prostate cancer 5. Severe triple-vessel coronary artery disease followed by cardiology PLAN: -Continue to monitor for any signs or symptoms of bleeding -Continue PPI -No plans for upper endoscopy at this time Physician Historiography Professor note has been reviewed by physician. Signing provider agrees with the documented findings, assessment, and plan of care. Objective - Vital Signs Vital signs: Vital Signs Temp 97.7 F 01/16/24 07:51 Pulse 71 01/16/24 11:58 Resp 17 01/16/24 11:58 BP 114/63 01/16/24 11:58 Pulse Ox 97 01/16/24 11:58 FiO2 Intake & Output 01/15/24 01/16/24 01/16/24 18:59 06:59 18:59 Intake Total 999.7 50.858 523.489 Output Total 5069 129 8783 Balance -0.3 -649.142 -926.511 Weight 62 kg 62 kg Intake: IV 399.7 Intake, IV Titration 50.858 45.489 Amount Heparin Sod,Pork in 0.45% 50.858 45.489 NaCl 25,000 unit In 0.45 % NaCl 1 250ml.bag @ 12 UNITS/KG/HR 7.08 mls/hr IV .Q24H [facility] Rx#: [id number] Oral 600 478 Output: Urine 0289 389 0888 Other: Voiding Method Indwelling Catheter Indwelling Catheter Indwelling Catheter - Labs CBC & Chem 7: 01/17/24 07:03 01/17/24 07:03 Labs: Abnormal Lab Results - Last 24 Hours (Table) 01/16/24 01/16/24 01/16/24 Range/Units 00:37 07:26 07:26 RBC 3.50 L (4.30-5.90) m/uL Hgb 11.8 L (13.0-17.5) gm/dL Hct 35.3 L (39.0-53.0) % MCV 101.1 H (80.0-100.0) fL Lymphocytes # 0.8 L (1.0-4.8) k/uL APTT 106.2 H* (22.0-30.0) sec Potassium 3.3 L (3.5-5.1) mmol/L Chloride 114 H (98-107) mmol/L Carbon Dioxide 21 L (22-30) mmol/L BUN 46 H (9-20) mg/dL Creatinine 1.52 H (0.66-1.25) mg/dL Glucose 111 H (74-99) mg/dL Calcium 8.0 L (8.4-10.2) mg/dL 01/16/24 Range/Units 07:26 RBC (4.30-5.90) m/uL Hgb (13.0-17.5) gm/dL Hct (39.0-53.0) % MCV (80.0-100.0) fL Lymphocytes # (1.0-4.8) k/uL APTT 63.6 H (22.0-30.0) sec Potassium (3.5-5.1) mmol/L Chloride (98-107) mmol/L Carbon Dioxide (22-30) mmol/L BUN (9-20) mg/dL Creatinine (0.66-1.25) mg/dL Glucose (74-99) mg/dL Calcium (8.4-10.2) mg/dL Assessment and Plan Assessment: 88 yo male w/ resolving coffee ground emesis -no intervention at this time -we will continue to monitor Time with Patient: Less than 30
--- NOTE | 2024-01-16 14:48 | P.PN ---
Subjective Progress Note Date: 01/16/24 Hospital Course: 88-year-old male with history of bladder cancer status post bladder removal, chronic indwelling Martínez catheter, hypertension, CAD, AAA status post stent on dual antiplatelet therapy presenting with acute GI bleed. Hemodynamically stable. Initial hemoglobin was 14.6 now down trended to 9.9, initial creatinine was 2.68, improved with IV fluids to 2.2. General surgery consulted. 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 During this admission patient complained of sudden onset chest pain. EKG showed ST depression in inferior and anterolateral leads. Troponin level trended upward. Cardiology was consulted for NSTEMI and patient was taken to the [facility] for coronary angiogram. No PCI was performed since patient has severe triple-vessel disease. Patient has poor prognosis for open heart surgery. Decision on consulting cardiothoracic surgeon is pending. Prognosis is guarded. Subjective: Patient seen and examined at bedside. No acute events overnight. Pertinent positives and negatives as discussed above, a complete review of systems was performed and all other systems are negative. Vitals Signs Reviewed. General: Nontoxic, no distress, appears at stated age Derm: Warm, dry Head: Atraumatic, normocephalic, symmetric Eyes: EOMI, no lid lag, anicteric sclera Mouth: No lip lesion, mucus membranes moist Cardiovascular: S1S2 reg, no murmur Lungs: CTA bilateral, no rhonchi, no rales, no accessory muscle use Abdominal: Soft, nontender to palpation, no guarding, no appreciable organomegaly Ext: No gross muscle atrophy, no edema, no contractures Neuro: CN II-XI grossly intact, no focal neuro deficits Psych: Alert, oriented, appropriate affect Data Reviewed Today: Pertinent Labs: Hemoglobin 11.8, hematocrit 35.3, MCV 101.1, sodium 144, potassium 3.3, chloride 114, bicarb 21, creatinine 46, creatinine 1.52, glucose 111, calcium 8.0 Imaging: No new imaging Assessment and Plan: Active: #NSTEMI status post coronary angiogram with no PCI #Ischemic cardiomyopathy with LVEF of 35 to 40% Patient has severe triple vessel disease Cardiology note reviewed: Patient not candidate for the PCI; patient unlikely to be a candidate for CABG. Aspirin 81 mg p.o. daily For chest pain nitroglycerin sublingual tablet, nitroglycerin patch, morphine 2 mg IVP every 4 hours as needed Heart healthy diet Continue with heparin drip till tomorrow GDMT: Lipitor 80 mg p.o. at bedtime, Farxiga 5 mg p.o. daily, metoprolol succinate 50 mg p.o. daily, consider starting on FREIDA inhibitor or ARB tomorrow if renal function allows -Increased isosorbide mononitrate 60 mg daily, ranolazine increased to 1000 every 12 hours by cardiology #Acute GI bleed -Hemoglobin improving -No active bleeding -continue with 40 mg IV twice daily Protonix -Resume aspirin 81 mg p.o. daily and hold Plavix 75 mg p.o. daily -General Surgery consulted; note reviewed; EGD is pending -Continue monitoring CBC -Currently hemodynamically stable #Acute kidney injury, nonoliguric secondary to hypovolemia, resolving #Non-anion gap metabolic acidosis secondary to IV normal saline Discontinue lactated Ringer with D5 Continue monitor BMP Nephrology note reviewed Check magnesium tomorrow a.m. #Hypokalemia Potassium 3.3 Given potassium chloride 40 mEq p.o Repeat BMP in the morning Chronic: Hypertension Chronic indwelling Martínez catheter History of bladder cancer status post resection History of prostate cancer History of CAD-resume aspirin, hold Plavix DVT ppx: Heparin drip Code status: Full code Anticipated discharge place: Pending clinical course Anticipated discharge time: Pending clinical course I have seen and evaluated the patient today. Discussed with the resident and agree with the residents finding and plan as documented in the resident's note. Changes highlighted in blue font. Objective - Vital Signs Vital signs: Vital Signs Temp 97.7 F 01/16/24 07:51 Pulse 71 01/16/24 11:58 Resp 17 01/16/24 11:58 BP 114/63 01/16/24 11:58 Pulse Ox 97 01/16/24 11:58 FiO2 Intake & Output 01/15/24 01/16/24 01/16/24 18:59 06:59 18:59 Intake Total 999.7 50.858 523.489 Output Total 2916 565 2536 Balance -0.3 -649.142 -926.511 Weight 62 kg 62 kg Intake: IV 399.7 Intake, IV Titration 50.858 45.489 Amount Heparin Sod,Pork in 0.45% 50.858 45.489 NaCl 25,000 unit In 0.45 % NaCl 1 250ml.bag @ 12 UNITS/KG/HR 7.08 mls/hr IV .Q24H [facility] Rx#: [id number] Oral 600 478 Output: Urine 6869 428 [id number] Other: Voiding Method Indwelling Catheter Indwelling Catheter Indwelling Catheter - Labs CBC & Chem 7: 01/16/24 07:26 01/16/24 07:26 Labs: Abnormal Lab Results - Last 24 Hours (Table) 01/16/24 01/16/24 01/16/24 Range/Units 00:37 07:26 07:26 RBC 3.50 L (4.30-5.90) m/uL Hgb 11.8 L (13.0-17.5) gm/dL Hct 35.3 L (39.0-53.0) % MCV 101.1 H (80.0-100.0) fL Lymphocytes # 0.8 L (1.0-4.8) k/uL APTT 106.2 H* (22.0-30.0) sec Potassium 3.3 L (3.5-5.1) mmol/L Chloride 114 H (98-107) mmol/L Carbon Dioxide 21 L (22-30) mmol/L BUN 46 H (9-20) mg/dL Creatinine 1.52 H (0.66-1.25) mg/dL Glucose 111 H (74-99) mg/dL Calcium 8.0 L (8.4-10.2) mg/dL 01/16/24 Range/Units 07:26 RBC (4.30-5.90) m/uL Hgb (13.0-17.5) gm/dL Hct (39.0-53.0) % MCV (80.0-100.0) fL Lymphocytes # (1.0-4.8) k/uL APTT 63.6 H (22.0-30.0) sec Potassium (3.5-5.1) mmol/L Chloride (98-107) mmol/L Carbon Dioxide (22-30) mmol/L BUN (9-20) mg/dL Creatinine (0.66-1.25) mg/dL Glucose (74-99) mg/dL Calcium (8.4-10.2) mg/dL
[2024-01-16] MEDS: PSYLLIUM HUSK 100% 6 GM PACKET PO SCH (15:35)
[2024-01-16] MEDS: RANOLAZINE 500 MG TAB.ER.12H PO SCH (20:19)
[2024-01-17 07:38] VITALS: BP 145/72; RESP 20; TEMP 98.5
[2024-01-17] MEDS: ISOSORBIDE MONONITRATE ER 60 MG TAB.ER.24H PO SCH (07:38)
[2024-01-17 07:51] LABS: Basophils % (A) 0 %; Eosinophils # (A) 0.3 k/uL (0-0.7); Eosinophils % (A) 5 %; HCT 28.9 % (39.0-53.0); Lymphocytes # (A) 1.1 k/uL (1.0-4.8); Lymphocytes % (A) 17 %; MCH 33.9 pg (25.0-35.0); MCHC 33.8 g/dL (31.0-37.0); MCV 100.2 fL (80.0-100.0); Mean Platelet Volume 7.5; Monocytes # (A) 0.4 k/uL (0-1.0); Monocytes % (A) 6 %; Neutrophils # (A) 4.8 k/uL (1.3-7.7); Neutrophils % (A) 71 %; Platelet Count 141 k/uL (150-450); RBC 2.88 m/uL (4.30-5.90); RDW 13.1 % (11.5-15.5); WBC 6.8 k/uL (3.8-10.6)
[2024-01-17 07:59] LABS: HGB 9.8 gm/dL (13.0-17.5)
[2024-01-17 08:08] LABS: African American GFR (CKD) 45 (>60 ml/min/1.73 sqM); Anion Gap 4 mmol/L; Blood Urea Nitrogen 47 mg/dL (9-20); Calcium 7.7 mg/dL (8.4-10.2); Carbon Dioxide 21 mmol/L (22-30); Chloride 115 mmol/L (98-107); Glucose 96 mg/dL (74-99); Magnesium 1.9 mg/dL (1.6-2.3); Non-African American GFR(CKD) 39 (>60 ml/min/1.73 sqM); Potassium 3.6 mmol/L (3.5-5.1); Sodium 140 mmol/L (137-145)
[2024-01-17 09:48] LABS: HCT 32.9 % (39.0-53.0); HGB 10.8 gm/dL (13.0-17.5); MCH 33.2 pg (25.0-35.0); MCHC 32.9 g/dL (31.0-37.0); MCV 100.8 fL (80.0-100.0); Macrocytosis Slight; Mean Platelet Volume 8.1; Platelet Count 151 k/uL (150-450); RBC 3.26 m/uL (4.30-5.90); RDW 13.7 % (11.5-15.5); WBC 7.9 k/uL (3.8-10.6)
--- NOTE | 2024-01-17 12:00 | P.PN ---
Subjective patient is seen for follow-up for acute kidney injury. Serum creatinine improved to 1.5 from 2.6 on initial admission. S/p IV fluids. Status post cardiac catheterization on 01/15/2024 which showed severe triple- vessel disease. No intervention was performed and patient has declined surgical evaluation. Objective - Vital Signs Vital signs: Vital Signs Temp 98.5 F 01/17/24 07:37 Pulse 74 01/17/24 07:37 Resp 20 01/17/24 07:37 BP 145/72 01/17/24 07:37 Pulse Ox 94 L 01/17/24 07:37 FiO2 Intake & Output 01/16/24 01/17/24 01/17/24 18:59 06:59 18:59 Intake Total 763.489 118 Output Total 1850 450 Balance -1086.511 -332 Weight 62 kg Intake: Intake, IV Titration 45.489 Amount Heparin Sod,Pork in 0.45% 45.489 NaCl 25,000 unit In 0.45 % NaCl 1 250ml.bag @ 12 UNITS/KG/HR 7.08 mls/hr IV .Q24H [facility] Rx#: [id number] Oral 718 118 Output: Urine 1850 450 Other: Voiding Method Indwelling Catheter Indwelling Catheter Indwelling Catheter - Exam patient is awake, comfortable, no acute distress. Examination of the heart S1 and S2 Examination of the lungs bilateral breath sounds are heard Abdomen is soft nontender Examination of lower extremities shows 1+ edema left leg, no edema noted in the right leg with the Martínez bag is tied. - Labs CBC & Chem 7: 01/17/24 09:33 01/17/24 07:03 Labs: Abnormal Lab Results - Last 24 Hours (Table) 01/17/24 01/17/24 01/17/24 Range/Units 07:03 07:03 07:03 RBC 2.88 L (4.30-5.90) m/uL Hgb 9.8 L D (13.0-17.5) gm/dL Hct 28.9 L (39.0-53.0) % MCV 100.2 H (80.0-100.0) fL Plt Count 141 L (150-450) k/uL APTT 78.3 H (22.0-30.0) sec Chloride 115 H (98-107) mmol/L Carbon Dioxide 21 L (22-30) mmol/L BUN 47 H (9-20) mg/dL Creatinine 1.57 H (0.66-1.25) mg/dL Calcium 7.7 L (8.4-10.2) mg/dL 01/17/24 Range/Units 09:33 RBC 3.26 L (4.30-5.90) m/uL Hgb 10.8 L (13.0-17.5) gm/dL Hct 32.9 L (39.0-53.0) % MCV 100.8 H (80.0-100.0) fL Plt Count (150-450) k/uL APTT (22.0-30.0) sec Chloride (98-107) mmol/L Carbon Dioxide (22-30) mmol/L BUN (9-20) mg/dL Creatinine (0.66-1.25) mg/dL Calcium (8.4-10.2) mg/dL Assessment and Plan Assessment: 1. Acute kidney injury ATN secondary to hypovolemia, improved with hydration. UA shows trace protein and small blood. No evidence of hydronephrosis on CT of the abdomen. Left kidney is atrophic. 2. Acute blood loss anemia from GI bleed 3. GI bleed with surgery on consult. No active bleeding noted. Maintained on IV heparin for acute [place] 4. History of bladder cancer and prostatic cancer status post prostatectomy and cystectomy with neobladder formation and chronic indwelling Martínez catheter. Abdominal CT shows possible bladder stones 5. non-ST elevation [place] status post cardiac catheterization on 01/14/2024 which showed severe triple-vessel disease 6. Ischemic cardiomyopathy EF of 35-40% 7. History of aortic aneurysm with previous stent graft Plan: continue with SGLT2i Repeat labs in a.m.
[2024-01-17 12:48] VITALS: PULSE 81
--- NOTE | 2024-01-17 13:06 | P.DS ---
Providers Date of admission: 01/13/24 21:15 Expected date of discharge: 01/17/24 Attending physician: Dinora Sotomayor MD Consults: 01/13/24 21:15 Consult Physician Routine Consulting Provider: Junior Alberts Consult Reason/Comments: alyson Do you want consulting provider notified?: Yes 01/13/24 23:39 Consult Physician Routine Consulting Provider: Haven Mello Consult Reason/Comments: GI bleed Do you want consulting provider notified?: Yes 01/14/24 11:13 Consult Physician Routine Consulting Provider: Hector Herrera Consult Reason/Comments: possible GI bleed Do you want consulting provider notified?: Yes 01/14/24 16:38 Consult Physician Urgent Consulting Provider: Meliton Smith Consult Reason/Comments: chest pain Do you want consulting provider notified?: Yes Primary care physician: Stated None Hospital Course: Discharge Diagnosis: #NSTEMI status post coronary angiogram with no PCI #Multivessel CAD #Ischemic cardiomyopathy with LVEF of 35 to 40% #Acute GI bleed #Acute kidney injury, nonoliguric secondary to hypovolemia, resolving #Non-anion gap metabolic acidosis secondary to IV normal saline #Hypokalemia Chronic: Hypertension Chronic indwelling Quezada catheter History of bladder cancer status post resection History of prostate cancer History of CAD-resume aspirin, hold Plavix Hospital Course: 88-year-old male with history of bladder cancer status post bladder removal, chronic indwelling Quezada catheter, hypertension, CAD, AAA status post stent on dual antiplatelet therapy presenting with acute GI bleed. Hemodynamically stable. Initial hemoglobin was 14.6 now down trended to 9.9, initial creatinine was 2.68, improved with IV fluids to 2.2. General surgery consulted. 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 During this admission patient complained of sudden onset chest pain. EKG showed ST depression in inferior and anterolateral leads. Troponin level trended upward. Cardiology was consulted for NSTEMI and patient was taken to the [facility] for coronary angiogram. No PCI was performed since patient has severe triple-vessel disease. Patient has poor prognosis for open heart surgery. Will continue with medical management. Patient no longer complaining of chest pain. Hemoglobin stable with no active bleeding. No indication for EGD or colonoscopy at this time. Patient to follow-up with cardiology, nephrology, general surgery and PCP as outpatient. Patient to be discharged home with self-care. Discharge instruction: Patient to continue on atorvastatin 80 mg p.o. daily,, Plavix 75 mg p.o. daily Ranexa 1000 mg p.o. twice daily, Farxiga 5 mg p.o. daily, Imdur 60 mg p.o. daily and Protonix 40 mg p.o. daily. Patient to also continue with aspirin 81 mg, Ventolin inhaler and metoprolol 50 mg p.o. daily Patient is provided discharge instructions on heart attack, coronary artery disease and GI bleeding. Vital signs reviewed. Gen: in no apparent distress, resting comfortably in bed Eyes: PERRL, no scleral injection or icterus HENT: normocephalic, atraumatic, good hearing acuity, moist mucous membranes Neck: full range of motion Resp: CTAB, no rales, rhonchi, or wheezes CVS: normal S1 and S2, no murmurs, rubs or gallops, no edema GI: soft, NTTP, ND, no hepatosplenomegaly : no suprapubic tenderness, no CVAT, quezada catheter present MSK: no clubbing, no cyanosis, no noted contractures of extremities Skin: no noted rashes, petechiae; temperature of skin is appropriate Neuro: moving all extremities without signs of weakness, CN II-XII intact Psych: cooperative, euthymic mood, insight and judgment intact A total of 33 minutes of time were spent preparing this complex discharge summary. Patient was discharged on 01/17/2024 at 1203. I have seen and evaluated the patient today. Discussed with the resident and agree with the residents finding and plan as documented in the resident's note. Changes highlighted in blue font. Patient Condition at Discharge: Stable Plan - Discharge Summary Discharge Rx Participant: Yes New Discharge Prescriptions: New Atorvastatin [Lipitor] 80 mg PO HS #90 tab Clopidogrel [Plavix] 75 mg PO DAILY #90 tab Ranolazine [Ranexa] 1,000 mg PO Q12HR #90 tab Dapagliflozin Propanediol [Farxiga] 5 mg PO DAILY #90 tab Isosorbide Mononitrate ER [Imdur] 60 mg PO DAILY #90 tab Pantoprazole [Protonix] 40 mg PO DAILY #90 tab Continue Aspirin 81 mg PO HS Albuterol Inhaler [Ventolin Hfa Inhaler] 2 puff INHALATION RT-Q4H PRN PRN Reason: Shortness Of Breath Metoprolol Succinate (ER) [Toprol XL] 50 mg PO DAILY Discontinued Clopidogrel [Plavix] 75 mg PO DAILY Isosorbide Mononitrate ER [Imdur] 30 mg PO DAILY amLODIPine [Norvasc] 5 mg PO DAILY Ranolazine [Ranexa] 500 mg PO Q12HR 30 Days #60 tab Rosuvastatin [Crestor] 20 mg PO HS Discharge Medication List Aspirin 81 mg PO HS 05/03/23 [History] Albuterol Inhaler [Ventolin Hfa Inhaler] 2 puff INHALATION RT-Q4H PRN 01/13/24 [History] Metoprolol Succinate (ER) [Toprol XL] 50 mg PO DAILY 01/13/24 [History] Atorvastatin [Lipitor] 80 mg PO HS #90 tab 01/17/24 [Rx] Clopidogrel [Plavix] 75 mg PO DAILY #90 tab 01/17/24 [Rx] Dapagliflozin Propanediol [Farxiga] 5 mg PO DAILY #90 tab 01/17/24 [Rx] Isosorbide Mononitrate ER [Imdur] 60 mg PO DAILY #90 tab 01/17/24 [Rx] Pantoprazole [Protonix] 40 mg PO DAILY #90 tab 01/17/24 [Rx] Ranolazine [Ranexa] 1,000 mg PO Q12HR #90 tab 01/17/24 [Rx] Follow up Appointment(s)/Referral(s): [facility] [NON-STAFF] - 1 Week Madison Bonilla MD [STAFF PHYSICIAN] - 1 Week (Please call to schedule hospital follow up apt. ) Meliton Smith MD [STAFF PHYSICIAN] - 1 Week (Please call to schedule hospital follow up apt. ) Lucho Dale MD [REFERRING] - 1 Week (Please call to schedule hospital follow up apt. ) Pepe Vogel DO [Doctor of Osteopathic Medicine] - 1 Week (please call to schedule hospital follow up apt. ) None,Stated [Primary Care Provider] - 1-2 days Patient Instructions/Handouts: Heart Attack (DC), Coronary Artery Disease (DC), Gastrointestinal Bleeding (DC) Activity/Diet/Wound Care/Special Instructions: Please see cardiology, general surgery, PCP and nephrology. Discharge Disposition: HOME SELF-CARE
--- NOTE | 2024-01-17 13:37 | P.PN ---
Subjective HISTORY OF PRESENT ILLNESS: This is a 88-year-old male with a past medical history significant for hypertension, hyperlipidemia, and reported CAD. Patient used to with Dr. Smith but has not been seen since 2021. We have been asked to see the patient in consultation for chest pain. Patient examined at the bedside. Patient initially presented to the hospital with a chief complaint of vomiting. Patient states that he had gotten Meals [employer] Whe[employer] delivered and he thinks that he ate some spoiled food. He does report having blood in his emesis. He denies any black stool or bright red blood per rectum. Denies hematuria. Patient was initially scheduled for EGD this morning. However the patient has been complaining of chest pain overnight and this morning. EKG completed overnight revealed ST depression in anterior leads. Repeat EKG this morning with ST depression in inferior lateral leads. Patient did receive nitroglycerin with some relief in his chest pain. Vital signs are stable. DIAGNOSTICS: - EKG reveals EKG completed overnight revealed ST depression in anterior leads. Repeat EKG this morning with ST depression in inferior lateral leads. - Chest xray negative for acute process. COPD. - Laboratory data: WBC 7.4. Hemoglobin 11.1. Platelet count 145. Sodium 142. Potassium 4.1. BUN 55. Creatinine 1.59. Troponin 0.034. 0.064. 4.000. - Current home cardiac medications include Crestor 20 mg at night, Ranexa 500 mg twice a day, metoprolol succinate 50 mg daily, Imdur 30 mg daily, amlodipine 5 mg daily, Plavix 75 mg daily, and aspirin 81 mg at night - Most recent echocardiogram obtained in 04/2023 failed ejection fraction 50 to 55% with mild aortic regurgitation - Cardiac catheterization history: Unknown 01/16/2024 Patient underwent cardiac catheterization yesterday with Dr. Smith revealing severe triple-vessel coronary artery disease and severe disease involving the left main coronary artery. Elevated left-sided filling pressures. Patient examined this morning the bedside. Patient currently denies chest pain or pressure. He denies shortness of breath. He states he is feeling well this morning. Telemetry reveals sinus mechanism with heart rate in the 90s. He remains on IV heparin and IV nitro. Echocardiogram completed revealing ejection fraction 35 to 40% with hypokinesis of septum and apex, mild pulmonary hypertension, low-flow aortic stenosis, mild aortic regurgitation 01/17/2024 Patient examined this morning at the bedside. Patient currently denies any chest pain or pressure. He denies any shortness of breath. Vital signs are stable. Telemetry reveals sinus mechanism. Creatinine today stable at 1.57. PHYSICAL EXAM: VITAL SIGNS: Reviewed. GENERAL: Well-developed in no acute distress. HEENT: Head is normocephalic. Pupils are equal, round. Sclerae anicteric. Mucous membranes of the mouth are moist. Neck supple. No JVD or thyromegaly LUNGS: Respirations even and unlabored. Lungs essentially clear to auscultation bilaterally. HEART: Regular rate and rhythm. S1 and S2 heard. ABDOMEN: Soft. Nondistended. Nontender. EXTREMITIES: Normal range of motion. No clubbing or cyanosis. Peripheral pulses intact. No lower extremity edema NEUROLOGIC: Awake and alert. Oriented x 3. ASSESSMENT: Hematemesis, resolved Non-STEMI, status post cardiac catheterization revealing severe triple-vessel CAD and severe disease involving the left main Ischemic cardiomyopathy, EF 35 to 40% Acute kidney injury Hypertension Hyperlipidemia History of aortic aneurysm with previous stent grafting PLAN: Patient not a candidate for PCI. Extremely unlikely that patient would be CABG candidate. Discussed with patient yesterday who agrees not to pursue surgical workup. We will continue with medical management at this time Continue dual antiplatelet therapy with aspirin and Plavix for 12 months Continue high intensity statin Add FREIDA/ARB when acute kidney injury resolves Continue additional cardiac medications Patient may be discharged home today from a cardiac standpoint Nurse practitioner note has been reviewed by physician. Signing provider agrees with the documented findings, assessment, and plan of care documented by DIRECTOR MERIT SYSTEM as a scribe. Objective - Vital Signs Vital signs: Vital Signs Temp 98.5 F 01/17/24 07:37 Pulse 81 01/17/24 12:48 Resp 20 01/17/24 07:37 BP 145/72 01/17/24 07:37 Pulse Ox 92 L 01/17/24 12:48 FiO2 Intake & Output 01/16/24 01/17/24 01/17/24 18:59 06:59 18:59 Intake Total 763.489 236 Output Total 1850 950 Balance -1086.511 -714 Weight 62 kg Intake: Intake, IV Titration 45.489 Amount Heparin Sod,Pork in 0.45% 45.489 NaCl 25,000 unit In 0.45 % NaCl 1 250ml.bag @ 12 UNITS/KG/HR 7.08 mls/hr IV .Q24H [facility] Rx#: [id number] Oral 718 236 Output: Urine 1850 950 Other: Voiding Method Indwelling Catheter Indwelling Catheter Indwelling Catheter # Voids 1 # Bowel Movements 1 - Labs CBC & Chem 7: 01/17/24 09:33 01/17/24 07:03 Labs: Abnormal Lab Results - Last 24 Hours (Table) 01/17/24 01/17/24 01/17/24 Range/Units 07:03 07:03 07:03 RBC 2.88 L (4.30-5.90) m/uL Hgb 9.8 L D (13.0-17.5) gm/dL Hct 28.9 L (39.0-53.0) % MCV 100.2 H (80.0-100.0) fL Plt Count 141 L (150-450) k/uL APTT 78.3 H (22.0-30.0) sec Chloride 115 H (98-107) mmol/L Carbon Dioxide 21 L (22-30) mmol/L BUN 47 H (9-20) mg/dL Creatinine 1.57 H (0.66-1.25) mg/dL Calcium 7.7 L (8.4-10.2) mg/dL 01/17/24 Range/Units 09:33 RBC 3.26 L (4.30-5.90) m/uL Hgb 10.8 L (13.0-17.5) gm/dL Hct 32.9 L (39.0-53.0) % MCV 100.8 H (80.0-100.0) fL Plt Count (150-450) k/uL APTT (22.0-30.0) sec Chloride (98-107) mmol/L Carbon Dioxide (22-30) mmol/L BUN (9-20) mg/dL Creatinine (0.66-1.25) mg/dL Calcium (8.4-10.2) mg/dL
--- NOTE | 2024-01-17 13:46 | P.PN ---
Subjective Progress Note Date: 01/17/24 SURGICAL PROGRESS NOTE CHIEF COMPLAINT: Vomiting HISTORY OF PRESENT ILLNESS: Patient initially presented to the hospital with complaints of dark emesis. EGD canceled yesterday due to cardiac issues. Prerna lee has had no further vomiting. He is tolerating diet. Denies any abdominal pain. Hemoglobin is stable PHYSICAL EXAM: VITAL SIGNS: Reviewed. GENERAL: Well-developed in no acute distress. ABDOMEN: Soft. Nondistended. Nontender. NEUROLOGIC: Alert and oriented. Cranial nerves II through XII grossly intact. ASSESSMENT: 1. Acute GI bleed with coffee-ground emesis. Resolved. 2. Acute blood loss anemia 3. Acute kidney injury 4. History of bladder and prostate cancer 5. Severe triple-vessel coronary artery disease followed by cardiology PLAN: -Patient can be discharge from surgical standpoint -Continue PPI -No plans for upper endoscopy at this time Physician Documentation Improvement Specialist note has been reviewed by physician. Signing provider agrees with the documented findings, assessment, and plan of care. Objective - Vital Signs Vital signs: Vital Signs Temp 98.5 F 01/17/24 07:37 Pulse 81 01/17/24 12:48 Resp 20 01/17/24 07:37 BP 145/72 01/17/24 07:37 Pulse Ox 92 L 01/17/24 12:48 FiO2 Intake & Output 01/16/24 01/17/24 01/17/24 18:59 06:59 18:59 Intake Total 763.489 236 Output Total 1850 950 Balance -1086.511 -714 Weight 62 kg Intake: Intake, IV Titration 45.489 Amount Heparin Sod,Pork in 0.45% 45.489 NaCl 25,000 unit In 0.45 % NaCl 1 250ml.bag @ 12 UNITS/KG/HR 7.08 mls/hr IV .Q24H [facility] Rx#: [id number] Oral 718 236 Output: Urine 1850 950 Other: Voiding Method Indwelling Catheter Indwelling Catheter Indwelling Catheter # Voids 1 # Bowel Movements 1 - Labs CBC & Chem 7: 01/17/24 09:33 01/17/24 07:03 Labs: Abnormal Lab Results - Last 24 Hours (Table) 01/17/24 01/17/24 01/17/24 Range/Units 07:03 07:03 07:03 RBC 2.88 L (4.30-5.90) m/uL Hgb 9.8 L D (13.0-17.5) gm/dL Hct 28.9 L (39.0-53.0) % MCV 100.2 H (80.0-100.0) fL Plt Count 141 L (150-450) k/uL APTT 78.3 H (22.0-30.0) sec Chloride 115 H (98-107) mmol/L Carbon Dioxide 21 L (22-30) mmol/L BUN 47 H (9-20) mg/dL Creatinine 1.57 H (0.66-1.25) mg/dL Calcium 7.7 L (8.4-10.2) mg/dL 01/17/24 Range/Units 09:33 RBC 3.26 L (4.30-5.90) m/uL Hgb 10.8 L (13.0-17.5) gm/dL Hct 32.9 L (39.0-53.0) % MCV 100.8 H (80.0-100.0) fL Plt Count (150-450) k/uL APTT (22.0-30.0) sec Chloride (98-107) mmol/L Carbon Dioxide (22-30) mmol/L BUN (9-20) mg/dL Creatinine (0.66-1.25) mg/dL Calcium (8.4-10.2) mg/dL
== END 2024-01-17 14:06 | disposition home or self-care (01) | DRG 377 ==
LOC: EC 19:13 → 5NMEDONC 21:15 → 3SCARD 01-14 18:42
PROVIDERS: ADMIT Internal Medicine; ATTEND Internal Medicine
PROC: B2111ZZ Fluoroscopy of Multiple Coronary Arteries using Low Osmolar Contrast (ICD-10-PCS; 2024-01-15)
PROC: 4A023N7 Measurement of Cardiac Sampling and Pressure, Left Heart, Percutaneous Approach (ICD-10-PCS; principal; 2024-01-15 15:25)
DX: K92.0 Hematemesis (principal); I21.4 Non-ST elevation (NSTEMI) myocardial infarction; N17.0 Acute kidney failure with tubular necrosis; D62 Acute posthemorrhagic anemia; E87.20 Acidosis, unspecified; Z85.46 Personal history of malignant neoplasm of prostate; I10 Essential (primary) hypertension; E78.5 Hyperlipidemia, unspecified; I25.10 Atherosclerotic heart disease of native coronary artery without angina pectoris; K57.90 Diverticulosis of intestine, part unspecified, without perforation or abscess without bleeding; Z85.51 Personal history of malignant neoplasm of bladder; I71.40 Abdominal aortic aneurysm, without rupture, unspecified; E86.1 Hypovolemia; E87.6 Hypokalemia; I25.5 Ischemic cardiomyopathy; I25.2 Old myocardial infarction; J44.9 Chronic obstructive pulmonary disease, unspecified; Z79.02 Long term (current) use of antithrombotics/antiplatelets; Z79.82 Long term (current) use of aspirin; Z79.899 Other long term (current) drug therapy; Z86.79 Personal history of other diseases of the circulatory system; Z87.891 Personal history of nicotine dependence; Z90.79 Acquired absence of other genital organ(s); N26.1 Atrophy of kidney (terminal); Z87.19 Personal history of other diseases of the digestive system
CPT/HCPCS: 36415; 71045; 74176; 80048; 81001; 82272; 83735; 84484; 85025; 85027; 85610; 85730; 93005; 93306; 93458; 94760; 96361; 96374; 99285

== ENCOUNTER 2024-01-28 09:45 | Inpatient (IN) | payer MEDICARE, OTHER ==
[2024-01-28 10:44] LABS: Basophils % (A) 0 %; Eosinophils # (A) 0.1 k/uL (0-0.7); Eosinophils % (A) 1 %; HGB 10.7 gm/dL (13.0-17.5); Lymphocytes # (A) 0.8 k/uL (1.0-4.8); Lymphocytes % (A) 7 %; MCH 32.8 pg (25.0-35.0); MCHC 32.5 g/dL (31.0-37.0); MCV 100.8 fL (80.0-100.0); Macrocytosis Slight; Mean Platelet Volume 6.9; Monocytes # (A) 0.3 k/uL (0-1.0); Monocytes % (A) 3 %; Neutrophils # (A) 9.7 k/uL (1.3-7.7); Neutrophils % (A) 89 %; Platelet Count 214 k/uL (150-450); RBC 3.28 m/uL (4.30-5.90); RDW 13.5 % (11.5-15.5); WBC 10.9 k/uL (3.8-10.6)
--- NOTE | 2024-01-28 10:56 | ED ---
Weakness HPI - General Chief complaint: Weakness Stated complaint: FALL Time Seen by Provider: 01/28/24 09:55 Source: patient Mode of arrival: ambulatory Limitations: no limitations - History of Present Illness Initial comments: 88-year-old male with past medical history of coronary artery disease, COPD who presents to the emergency department complaining of a fall. Patient had his jewelry sales coordinator come over to the house yesterday and check on him. He was doing well. This morning the patient fell out of bed because he could not ambulate. He s tates that he is too weak. He denies hitting his head. Denies any injuries from the fall. He was on the ground for a period of time before he was able to call his jewelry sales coordinator. They did help him get up. They called EMS. Patient usually ambulates on his own without assistance. States he has been so weak over the past 3 days that he cannot ambulate at all. He has not been eating. He denies chest pain or shortness of breath. No nausea or vomiting. No abdominal pain. No other alleviating, precipitating or modifying factors - Related Data Home Medications Medication Instructions Recorded Confirmed Aspirin 81 mg PO HS 05/03/23 01/28/24 Albuterol Inhaler [Ventolin Hfa 2 puff INHALATION RT-Q4H PRN 01/13/24 01/28/24 Inhaler] Metoprolol Succinate (ER) [Toprol 50 mg PO DAILY 01/13/24 01/28/24 XL] Pantoprazole [Protonix] See Taper PO DIRECTED 01/28/24 01/28/24 Previous Rx's Medication Instructions Recorded Atorvastatin [Lipitor] 80 mg PO HS #90 tab 01/17/24 Clopidogrel [Plavix] 75 mg PO DAILY #90 tab 01/17/24 Dapagliflozin Propanediol [Farxiga] 5 mg PO DAILY #90 tab 01/17/24 Isosorbide Mononitrate ER [Imdur] 60 mg PO DAILY #90 tab 01/17/24 Ranolazine [Ranexa] 1,000 mg PO Q12HR #90 tab 01/17/24 Allergies Allergy/AdvReac Type Severity Reaction Status Date / Time No Known Allergies Allergy Verified 01/28/24 10:57 Review of Systems ROS Statement: Those systems with pertinent positive or pertinent negative responses have been documented in the HPI. ROS Other: All systems not noted in ROS Statement are negative. Past Medical History Past Medical History: Coronary Artery Disease (CAD), COPD, GERD/Reflux, Hypertension, Prostate Disorder Additional Past Medical History / Comment(s): Bladder Cancer, prostate cancer History of Any Multi-Drug Resistant Organisms: None Reported Past Surgical History: Bladder Surgery, Hernia Repair, Prostate Surgery Additional Past Surgical History / Comment(s): Hemorrhoid, vasectomy, Past Anesthesia/Blood Transfusion Reactions: No Reported Reaction Past Psychological History: No Psychological Hx Reported Smoking Status: Former smoker Past Alcohol Use History: None Reported Past Drug Use History: None Reported - Past Family History Mother Additional Family Medical History / Comment(s): from ovarian cancer General Exam Limitations: no limitations Course Vital Signs 01/28/24 01/28/24 09:48 12:24 Temperature 97 F L Pulse Rate 60 59 L Respiratory 18 18 Rate Blood Pressure 113/76 129/86 O2 Sat by Pulse 98 100 Oximetry Medical Decision Making - Medical Decision Making Was pt. sent in by a medical professional or institution (, PA, WORKCELL OPERATOR, urgent care, hospital, or halfway...) When possible be specific @ -[No] Did you speak to anyone other than the patient for history (EMS, parent, family, police, friend...)? What history was obtained from this source @ -[No] Did you review nursing and triage notes (agree or disagree)? Why? @ -[I reviewed and agree with nursing and triage notes] Were old charts reviewed (outside hosp., previous admission, EMS record, old EKG, old radiological studies, urgent care reports/EKG's, halfway records)? Report findings @ -[No old charts were reviewed] Differential Diagnosis (chest pain, altered mental status, abdominal pain women, abdominal pain men, vaginal bleeding, weakness, fever, dyspnea, syncope, headache, dizziness, GI bleed, back pain, seizure, CVA, palpatations, mental health, musculoskeletal)? @ -[not applicable] EKG interpreted by me (3pts min.). @ -Yes and demonstrates sinus bradycardia with a rate of 58. VT interval 192. QRS 98. QTc of 437. No acute ST segment elevations or depressions X-rays interpreted by me (1pt min.). @ -[None done] CT interpreted by me (1pt min.). @ -[None done] U/S interpreted by me (1pt. min.). @ -[None done] What testing was considered but not performed or refused? (CT, X-rays, U/S, labs)? Why? @ -[None] What meds were considered but not given or refused? Why? @ -[None] Did you discuss the management of the patient with other professionals (professionals i.e. DrIsis, PA, WORKCELL OPERATOR, lab, RT, psych nurse, social services specialist, oracle fusion developer, teacher, command center officer, senior case manager)? Give summary @ -[No] Was smoking cessation discussed for >3mins.? @ -[No] Was critical care preformed (if so, how long)? @ -[No] Were there social determinants of health that impacted care today? How? (Homelessness, low income, unemployed, alcoholism, drug addiction, transportation, low edu. Level, literacy, decrease access to med. care, group home, rehab)? @ -[No] Was there de-escalation of care discussed even if they declined (Discuss DNR or withdrawal of care, Hospice)? DNR status @ -[No] What co-morbidities impacted this encounter? (DM, HTN, Smoking, COPD, CAD, Cancer, CVA, ARF, Chemo, Hep., AIDS, mental health diagnosis, sleep apnea, morbid obesity)? @ -[None] Was patient admitted / discharged? Hospital course, mention meds given and route, prescriptions, significant lab abnormalities, going to OR and other pertinent info. @ -[hospital course] Undiagnosed new problem with uncertain prognosis? @ -[No] Drug Therapy requiring intensive monitoring for toxicity (Heparin, Nitro, Insulin, Cardizem)? @ -[No] Were any procedures done? @ -[No] Diagnosis/symptom? @ -[default] Acute, or Chronic, or Acute on Chronic? @ -[default] Uncomplicated (without systemic symptoms) or Complicated (systemic symptoms)? @ -[default] Side effects of treatment? @ -[No] Exacerbation, Progression, or Severe Exacerbation? @ -[No] Poses a threat to life or bodily function? How? (Chest pain, [place], [place], pneumonia, PE, COPD, DKA, ARF, appy, cholecystitis, CVA, Diverticulitis, Homicidal, Suicidal, threat to staff... and all critical care pts) @ -[No] - Lab Data Result diagrams: 01/28/24 10:24 01/28/24 10:24 Lab Results 01/28/24 01/28/24 01/28/24 Range/Units 10:24 10:24 10:24 WBC 10.9 H (3.8-10.6) k/uL RBC 3.28 L (4.30-5.90) m/uL Hgb 10.7 L (13.0-17.5) gm/dL Hct 33.0 L (39.0-53.0) % MCV 100.8 H (80.0-100.0) fL MCH 32.8 (25.0-35.0) pg MCHC 32.5 (31.0-37.0) g/dL RDW 13.5 (11.5-15.5) % Plt Count 214 (150-450) k/uL MPV 6.9 Neutrophils % 89 % Lymphocytes % 7 % Monocytes % 3 % Eosinophils % 1 % Basophils % 0 % Neutrophils # 9.7 H (1.3-7.7) k/uL Lymphocytes # 0.8 L (1.0-4.8) k/uL Monocytes # 0.3 (0-1.0) k/uL Eosinophils # 0.1 (0-0.7) k/uL Basophils # 0.0 (0-0.2) k/uL Macrocytosis Slight PT 11.2 (10.0-12.5) sec INR 1.0 (<1.2) APTT 24.9 (22.0-30.0) sec Sodium 139 (137-145) mmol/L Potassium 5.1 (3.5-5.1) mmol/L Chloride 107 (98-107) mmol/L Carbon Dioxide 25 (22-30) mmol/L Anion Gap 7 mmol/L BUN 30 H (9-20) mg/dL Creatinine 1.45 H (0.66-1.25) mg/dL Est GFR (CKD-EPI)AfAm 49 (>60 ml/min/1.73 sqM) Est GFR (CKD-EPI)NonAf 42 (>60 ml/min/1.73 sqM) Glucose 111 H (74-99) mg/dL Plasma Lactic Acid [place] (0.7-2.0) mmol/L Calcium 8.5 (8.4-10.2) mg/dL Magnesium 1.9 (1.6-2.3) mg/dL Total Bilirubin 0.6 (0.2-1.3) mg/dL AST 19 (17-59) U/L ALT 12 (4-49) U/L Alkaline Phosphatase 60 (38-126) U/L Creatine Kinase 78 (55-170) U/L Troponin I (0.000-0.034) ng/mL Total Protein 6.0 L (6.3-8.2) g/dL Albumin 3.5 (3.5-5.0) g/dL Urine Color Urine Appearance (Clear) Urine pH (5.0-8.0) Ur Specific [place] (1.001-1.035) Urine Protein (Negative) Urine Glucose (UA) (Negative) Urine Ketones (Negative) Urine Blood (Negative) Urine Nitrite (Negative) Urine Bilirubin (Negative) Urine Urobilinogen (<2.0) mg/dL Ur Leukocyte Esterase (Negative) Urine RBC (0-5) /hpf Urine WBC (0-5) /hpf Urine Bacteria (None) /hpf Urine Mucus (None) /hpf 01/28/24 01/28/24 01/28/24 Range/Units 10:24 10:24 11:12 WBC (3.8-10.6) k/uL RBC (4.30-5.90) m/uL Hgb (13.0-17.5) gm/dL Hct (39.0-53.0) % MCV (80.0-100.0) fL MCH (25.0-35.0) pg MCHC (31.0-37.0) g/dL RDW (11.5-15.5) % Plt Count (150-450) k/uL MPV Neutrophils % % Lymphocytes % % Monocytes % % Eosinophils % % Basophils % % Neutrophils # (1.3-7.7) k/uL Lymphocytes # (1.0-4.8) k/uL Monocytes # (0-1.0) k/uL Eosinophils # (0-0.7) k/uL Basophils # (0-0.2) k/uL Macrocytosis PT (10.0-12.5) sec INR (<1.2) APTT (22.0-30.0) sec Sodium (137-145) mmol/L Potassium (3.5-5.1) mmol/L Chloride (98-107) mmol/L Carbon Dioxide (22-30) mmol/L Anion Gap mmol/L BUN (9-20) mg/dL Creatinine (0.66-1.25) mg/dL Est GFR (CKD-EPI)AfAm (>60 ml/min/1.73 sqM) Est GFR (CKD-EPI)NonAf (>60 ml/min/1.73 sqM) Glucose (74-99) mg/dL Plasma Lactic Acid [place] 0.8 (0.7-2.0) mmol/L Calcium (8.4-10.2) mg/dL Magnesium (1.6-2.3) mg/dL Total Bilirubin (0.2-1.3) mg/dL AST (17-59) U/L ALT (4-49) U/L Alkaline Phosphatase (38-126) U/L Creatine Kinase (55-170) U/L Troponin I 0.058 H* (0.000-0.034) ng/mL Total Protein (6.3-8.2) g/dL Albumin (3.5-5.0) g/dL Urine Color Light Yellow Urine Appearance Cloudy (Clear) Urine pH 6.5 (5.0-8.0) Ur Specific [place] 1.012 (1.001-1.035) Urine Protein Trace H (Negative) Urine Glucose (UA) 3+ H (Negative) Urine Ketones Negative (Negative) Urine Blood Negative (Negative) Urine Nitrite Positive (Negative) Urine Bilirubin Negative (Negative) Urine Urobilinogen <2.0 (<2.0) mg/dL Ur Leukocyte Esterase Moderate H (Negative) Urine RBC 1 (0-5) /hpf Urine WBC 6 H (0-5) /hpf Urine Bacteria Occasional H (None) /hpf Urine Mucus Rare H (None) /hpf Disposition Clinical Impression: Acute non-ST elevation myocardial infarction (NSTEMI), Inability to walk Disposition: ADMITTED IP TO THIS [facility] Condition: Stable Is patient prescribed a controlled substance at d/c from ED?: No Referrals: None,Stated [Primary Care Provider] - 1-2 days Time of Disposition: 13:28 Decision to Admit Reason: Admit from EC Decision Date: 01/28/24 Decision Time: 13:28
[2024-01-28 10:58] LABS: ALT 12 U/L (4-49); AST 19 U/L (17-59); African American GFR (CKD) 49 (>60 ml/min/1.73 sqM); Albumin 3.5 g/dL (3.5-5.0); Alkaline Phosphatase 60 U/L (38-126); Anion Gap 7 mmol/L; Blood Urea Nitrogen 30 mg/dL (9-20); Calcium 8.5 mg/dL (8.4-10.2); Carbon Dioxide 25 mmol/L (22-30); Chloride 107 mmol/L (98-107); Glucose 111 mg/dL (74-99); Magnesium 1.9 mg/dL (1.6-2.3); Non-African American GFR(CKD) 42 (>60 ml/min/1.73 sqM); Potassium 5.1 mmol/L (3.5-5.1); Sodium 139 mmol/L (137-145); Total Bilirubin 0.6 mg/dL (0.2-1.3)
[2024-01-28 11:04] LABS: Partial Thromboplastin Time 24.9 sec (22.0-30.0); Prothrombin Time 11.2 sec (10.0-12.5)
--- NOTE | 2024-01-28 11:08 | XR ---
EXAMINATION TYPE: XR chest 2V DATE OF EXAM: 01/28/2024 11:02 AM COMPARISON: Chest radiographs from 01/14/2024, 05/03/2023 TECHNIQUE: XR chest 2V Frontal and lateral views of the chest. CLINICAL INDICATION:Male, 88 years old with history of Weakness; FINDINGS: Lungs/Pleura: There is flattening of the diaphragm with increased lucency of the lungs. No evidence o f pneumothorax, pleural effusion or focal consolidation. Pulmonary vascularity: Unremarkable. Heart/mediastinum: Cardiomediastinal silhouette is unremarkable. Musculoskeletal: No acute osseous pathology. IMPRESSION: 1. No acute cardiopulmonary disease process. 2. COPD changes. [facility], , 01/28/2024 11:06 AM
[2024-01-28 11:23] LABS: Appearance,Urine Cloudy (Clear); Bacteria,Urine Occasional /hpf; Bilirubin,Urine Negative (Negative); Blood,Urine Negative (Negative); Color,Urine Light Yellow; Glucose,Urine (UA) 3+ (Negative); Ketones,Urine Negative (Negative); Leukocyte Esterase,Urine Moderate (Negative); Mucus,Urine Rare /hpf; Nitrite,Urine Positive (Negative); PH, Urine 6.5 (5.0-8.0); Protein,Urine Trace (Negative); RBC,Urine 1 /hpf (0-5); Specific Gravity,Urine 1.012 (1.001-1.035); Urobilinogen,Urine <2.0 mg/dL (<2.0); WBC,Urine 6 /hpf (0-5)
[2024-01-28 11:27] LABS: Creatine Kinase 78 U/L (55-170)
[2024-01-28] MEDS ORDERED: NALOXONE 0.4 MG/ML 1 ML VIAL IV PRN (13:28)
--- NOTE | 2024-01-28 15:02 | P.CRDCN ---
History of Present Illness History of present illness: HISTORY OF PRESENT ILLNESS: This is a 88-year-old male with a past medical history significant for coronary artery disease, cardiomyopathy, hypertension, and hyperlipidemia. Patient candelario ws in the office with Dr. Smith. We have been asked to see the patient in consultation for elevated troponin. Patient examined at the bedside in the emergency room. Patient was admitted to the hospital at the end of December 2023 secondary to hematemesis. Patient was scheduled for EGD with general surgery during that admission. However the patient did develop chest discomfort with EKG changes and elevated troponins. The patient went for cardiac catheterization with Dr. Smith on 01/15/2024 revealing severe triple-vessel coronary artery disease and severe disease involving the left main coronary artery. Patient was not a candidate for PCI per Dr. Smith and unlikely that patient would be CABG candidate. Patient was agreeable to medical management. The patient's hemoglobin stabilized and he had no further episodes of hematemesis. The patient did not end up undergoing EGD. The patient was also treated for acute kidney injury at that time. The patient was discharged home in stable condition. The patient presented back to the hospital today after sustaining a fall at home. The patient states he was trying to get out of bed when he began to feel very weak and fell. He states he was trying to climb back up onto the bed but was unable. He was able to reach for his cell phone and called a neighbor to help him. He believes that he was laying on the floor for approximately 25 minutes. The patient denies losing consciousness. He denies any chest pain or pressure at the time of examination. He denies shortness of breath. He denies any further episodes of hematemesis. He does report having some occasional chest pains at home which usually resolve with rest. Patient's vitals are stable at time of examination. DIAGNOSTICS: - EKG reveals sinus mechanism with no signs of acute ischemia - Chest xray negative for acute process. COPD changes. - Laboratory data: WBC 10.9. Hemoglobin 10.8. Platelet count 214. Sodium 139. Potassium 5.1. BUN 30. Creatinine 1.45. Troponin 0.058. Creatinine kinase 78. - Current home cardiac medications include Plavix 75 mg daily, Farxiga 5 mg daily, Imdur 60 mg daily, Ranexa 1000 mg twice a day, metoprolol succinate 50 mg daily, aspirin 81 mg daily, Lipitor 80 mg daily - Most recent echocardiogram obtained in December 2023 revealed ejection fraction 35 to 40% with hypokinesis of the septum and apex, mild pulm and hypertension, low-flow aortic stenosis, and mild aortic regurgitation - Cardiac catheterization history: 01/15/2024 revealing calcified right and left coronary system with severe triple-vessel coronary artery disease and severe disease involving the left main coronary artery. Elevated left-sided filling pressures. REVIEW OF SYSTEMS: At the time of my exam: CONSTITUTIONAL: Denies fever or chills. HEENT: Denies blurred vision, vision changes, or eye pain. Denies hemoptysis CARDIOVASCULAR: Denies chest pain. Denies orthopnea. Denies PND. Denies palpitations RESPIRATORY: Denies shortness of breath. GASTROINTESTINAL: Denies abdominal pain. Denies nausea or vomiting. HEMATOLOGIC: Denies bleeding disorders. GENITOURINARY: Denies any blood in urine. SKIN: Denies pruitis. Denies rash. PHYSICAL EXAM: VITAL SIGNS: Reviewed. GENERAL: Well-developed in no acute distress. Frail. HEENT: Head is normocephalic. Pupils are equal, round. Sclerae anicteric. Mucous membranes of the mouth are moist. Neck supple. No JVD or thyromegaly LUNGS: Respirations even and unlabored. Lungs essentially clear to auscultation bilaterally. HEART: Regular rate and rhythm. S1 and S2 heard. ABDOMEN: Soft. Nondistended. Nontender. EXTREMITIES: Normal range of motion. No clubbing or cyanosis. Peripheral pulses intact. No lower extremity edema NEUROLOGIC: Awake and alert. Oriented x 3. ASSESSMENT: 1. Generalized weakness 2. Status post mechanical fall with no evidence of syncope 3. Recent non-STEMI, 01/15/2024, status post heart cath revealing severe triple- vessel CAD and severe disease involving left main, not a candidate for PCI or CABG, on dual antiplatelet therapy with aspirin and Plavix 4. Ischemic cardiomyopathy, ejection fraction 35 to 40% 5. Recent hospitalization for hematemesis, acute kidney injury, and non-STEMI 6. Acute kidney injury 7. Abnormal troponin, likely secondary to recent non-STEMI with peak troponin of 4.0 along with poor renal clearance, no evidence of acute coronary syndrome 8. Hypertension 9. Hyperlipidemia 10. History of aortic aneurysm with previous stent grafting 11. Fraility 12. Protein calorie malnutrition, Total protein 6.0, BMI 14.5 13. COPD with former nicotine dependence PLAN: An acute coronary event has been ruled out No indication to continue drawing troponins Resume home cardiac medications including dual antiplatelet therapy with aspirin and Plavix due to recent non-STEMI Patient with MOO. Although improving from previous admission. Patient would benefit from FREIDA/ARB when acute kidney injury resolves Currently stable from a cardiac standpoint PT/OT consulted. Patient may benefit from ECF placement for rehab Further recommendations pending patient course Nurse practitioner note has been reviewed by physician. Signing provider agrees with the documented findings, assessment, and plan of care documented by MEDICAL CASH POSTER as a scribe. Past Medical History Past Medical History: Coronary Artery Disease (CAD), COPD, GERD/Reflux, Hypertension, Prostate Disorder Additional Past Medical History / Comment(s): Bladder Cancer, prostate cancer History of Any Multi-Drug Resistant Organisms: None Reported Past Surgical History: Bladder Surgery, Hernia Repair, Prostate Surgery Additional Past Surgical History / Comment(s): Hemorrhoid, vasectomy, Past Anesthesia/Blood Transfusion Reactions: No Reported Reaction Past Psychological History: No Psychological Hx Reported Smoking Status: Former smoker Past Alcohol Use History: None Reported Past Drug Use History: None Reported - Past Family History Mother Additional Family Medical History / Comment(s): from ovarian cancer Medications and Allergies Home Medications Medication Instructions Recorded Confirmed Type Aspirin 81 mg PO HS 05/03/23 01/28/24 History Albuterol Inhaler [Ventolin Hfa 2 puff INHALATION RT-Q4H PRN 01/13/24 01/28/24 History Inhaler] Metoprolol Succinate (ER) [Toprol 50 mg PO DAILY 01/13/24 01/28/24 History XL] Atorvastatin [Lipitor] 80 mg PO HS #90 tab 01/17/24 01/28/24 Rx Clopidogrel [Plavix] 75 mg PO DAILY #90 tab 01/17/24 01/28/24 Rx Dapagliflozin Propanediol [Farxiga] 5 mg PO DAILY #90 tab 01/17/24 01/28/24 Rx Isosorbide Mononitrate ER [Imdur] 60 mg PO DAILY #90 tab 01/17/24 01/28/24 Rx Ranolazine [Ranexa] 1,000 mg PO Q12HR #90 tab 01/17/24 01/28/24 Rx Pantoprazole [Protonix] See Taper PO DIRECTED 01/28/24 01/28/24 History Allergies Allergy/AdvReac Type Severity Reaction Status Date / Time No Known Allergies Allergy Verified 01/28/24 10:57 Physical Exam Vitals: Vital Signs Temp Pulse Resp BP Pulse Ox 01/28/24 12:24 59 L 18 129/86 100 01/28/24 09:48 97 F L 60 18 113/76 98 Intake and Output 01/27/24 01/28/24 01/28/24 22:59 06:59 14:59 Other: Weight 39.463 kg Results 01/28/24 10:24 01/28/24 10:24 Cardiac Enzymes 01/28/24 01/28/24 Range/Units 10:24 10:24 AST 19 (17-59) U/L Troponin I 0.058 H* (0.000-0.034) ng/mL Coagulation 01/28/24 Range/Units 10:24 PT 11.2 (10.0-12.5) sec APTT 24.9 (22.0-30.0) sec CBC 01/28/24 Range/Units 10:24 WBC 10.9 H (3.8-10.6) k/uL RBC 3.28 L (4.30-5.90) m/uL Hgb 10.7 L (13.0-17.5) gm/dL Hct 33.0 L (39.0-53.0) % Plt Count 214 (150-450) k/uL Comprehensive Metabolic Panel 01/28/24 Range/Units 10:24 Sodium 139 (137-145) mmol/L Potassium 5.1 (3.5-5.1) mmol/L Chloride 107 (98-107) mmol/L Carbon Dioxide 25 (22-30) mmol/L BUN 30 H (9-20) mg/dL Creatinine 1.45 H (0.66-1.25) mg/dL Glucose 111 H (74-99) mg/dL Calcium 8.5 (8.4-10.2) mg/dL AST 19 (17-59) U/L ALT 12 (4-49) U/L Alkaline Phosphatase 60 (38-126) U/L Total Protein 6.0 L (6.3-8.2) g/dL Albumin 3.5 (3.5-5.0) g/dL Current Medications Generic Name Dose Route Start Last Admin Trade Name Freq PRN Reason Stop Dose Admin Naloxone HCl 0.2 mg 01/28/24 13:28 Naloxone 0.4 Mg/Ml 1 Ml Vial IV Q2M PRN Opioid Reversal Intake and Output 01/27/24 01/28/24 01/28/24 22:59 06:59 14:59 Other: Weight 39.463 kg Patient Weight 01/29/24 06:59 Weight 39.463 kg 01/28/24 10:24 01/28/24 10:24
[2024-01-28] MEDS: ASPIRIN 81 MG PO STA (15:34)
--- NOTE | 2024-01-28 17:18 | HP ---
HISTORY AND PHYSICAL CHIEF COMPLAINT: Weakness. HISTORY OF PRESENT ILLNESS: This is an 88-year-old gentleman with a past medical history of multiple medical problems, was recently admitted with a non STEMI. The patient had multivessel coronary artery disease and angiogram with no PCI was performed and ejection fraction found to be 35% to 40%, possible ischemic cardiomyopathy. Currently, the patient is complaining of increasingly weak. The patient is unable to get up from the bed and he fell out of bed and because of the weakness and other symptoms, the patient came to [facility] and was found to have a troponin of 0.058, the previous one in the computer was 4. There is no history of any fever, rigors, or chills at this time. No history of chest pain, or palpitations either. PAST MEDICAL HISTORY: History of CAD, history of COPD and other medical issues, and rest of the history reviewed. HOME MEDICATIONS: Include Lipitor, rest of medications reviewed. ALLERGIES: None. FAMILY HISTORY: History of ovarian cancer. SOCIAL HISTORY: Previous history of smoking. REVIEW OF SYSTEMS: Fourteen-point review is negative except as mentioned earlier. PHYSICAL EXAMINATION: VITAL SIGNS: Pulse is 59, blood pressure 120/86, respirations 18. HEENT: Conjunctivae normal. NECK: No JVD. CARDIOVASCULAR: S1, S2. RESPIRATIONS: Breath sounds diminished at the bases. A few scattered rhonchi. No crackles. ABDOMEN: Soft, nontender. LEGS: No edema. No swelling. NERVOUS SYSTEM: Diffusely weak and wasted. SKIN: No ulcer, rash, bleeding. JOINTS: No active deforming arthropathy. ASSESSMENT: 1. Generalized weakness and tiredness with possible myopathy. 2. Elevated troponin, rule out acute myocardial infarction. 3. Dehydration with acute renal failure. 4. Coronary artery disease. 5. Chronic obstructive pulmonary disease. 6. Gastroesophageal reflux disease. 7. Multiple complex medical issues. 8. Gait dysfunction. RECOMMENDATIONS AND DISCUSSION: I recommend to continue current management and continue symptomatic treatment. Otherwise, Cardiology consultation. We will hydrate the patient cautiously. PT, OT evaluation, possible ECF rehab. Prognosis guarded because of multiple complex medical issues. The patient is high risk of falls. Recommend inpatient admission and complete workup because of the above-mentioned medical issues. MMODL / IJN: [id number] /
[2024-01-28] MEDS: ATORVASTATIN 80 MG TAB PO SCH (20:00)
[2024-01-28] MEDS: RANOLAZINE 500 MG TAB.ER.12H PO SCH (20:00)
[2024-01-28] MEDS: ASPIRIN 81 MG PO SCH (20:00)
[2024-01-28] MEDS: HEPARIN SODIUM,PORCINE 5,000 UNIT/ML 1 ML VIAL SQ SCH (20:01)
[2024-01-28] MEDS: HYDROcodone/APAP 5-325MG 1 EACH TAB PO PRN (21:41)
[2024-01-28] MEDS ORDERED: ZINC OXIDE PASTE (Z-GUARD) 1 APPLIC TOPICAL PRN (22:23)
[2024-01-29 07:36] LABS: Basophils % (A) 0 %; Eosinophils # (A) 0.3 k/uL (0-0.7); Eosinophils % (A) 3 %; HCT 31.6 % (39.0-53.0); HGB 10.3 gm/dL (13.0-17.5); Hypochromasia Slight; Lymphocytes # (A) 1.1 k/uL (1.0-4.8); Lymphocytes % (A) 14 %; MCH 33.4 pg (25.0-35.0); MCHC 32.6 g/dL (31.0-37.0); MCV 102.3 fL (80.0-100.0); Macrocytosis Slight; Mean Platelet Volume 7.6; Monocytes # (A) 0.4 k/uL (0-1.0); Monocytes % (A) 6 %; Neutrophils # (A) 5.7 k/uL (1.3-7.7); Neutrophils % (A) 75 %; Platelet Count 181 k/uL (150-450); RBC 3.09 m/uL (4.30-5.90); RDW 13.4 % (11.5-15.5); WBC 7.6 k/uL (3.8-10.6)
[2024-01-29 08:02] LABS: African American GFR (CKD) 58 (>60 ml/min/1.73 sqM); Anion Gap 6 mmol/L; Blood Urea Nitrogen 27 mg/dL (9-20); Calcium 8.1 mg/dL (8.4-10.2); Carbon Dioxide 24 mmol/L (22-30); Chloride 108 mmol/L (98-107); Glucose 78 mg/dL (74-99); Non-African American GFR(CKD) 50 (>60 ml/min/1.73 sqM); Potassium 4.3 mmol/L (3.5-5.1); Sodium 138 mmol/L (137-145)
[2024-01-29] MEDS: ISOSORBIDE MONONITRATE ER 60 MG TAB.ER.24H PO SCH (09:23)
[2024-01-29] MEDS: METOPROLOL SUCCINATE (ER) 50 MG TAB.ER.24H PO SCH (09:23)
[2024-01-29] MEDS: CLOPIDOGREL 75 MG TAB PO SCH (09:23)
[2024-01-29] MEDS: DAPAGLIFLOZIN PROPANEDIOL 10 MG TABLET PO SCH (09:23)
--- NOTE | 2024-01-29 12:18 | P.PN ---
Subjective HISTORY OF PRESENT ILLNESS: This is a 88-year-old male with a past medical history significant for coronary artery disease, cardiomyopathy, hypertension, and hyperlipidemia. Patient follows in the office with Dr. Smith. We have been asked to see the patient in consultation for elevated troponin. Patient examined at the bedside in the emergency room. Patient was admitted to the hospital at the end of December 2023 secondary to hematemesis. Patient was scheduled for EGD with general surgery during that admission. However the patient did develop chest discomfort with EKG changes and elevated troponins. The patient went for cardiac cathete rization with Dr. Smith on 01/15/2024 revealing severe triple-vessel coronary artery disease and severe disease involving the left main coronary artery. Patient was not a candidate for PCI per Dr. Smith and unlikely that patient would be CABG candidate. Patient was agreeable to medical management. The patient's hemoglobin stabilized and he had no further episodes of hematemesis. The patient did not end up undergoing EGD. The patient was also treated for acute kidney injury at that time. The patient was discharged home in stable condition. The patient presented back to the hospital today after sustaining a fall at home. The patient states he was trying to get out of bed when he began to feel very weak and fell. He states he was trying to climb back up onto the bed but was unable. He was able to reach for his cell phone and called a neighbor to help him. He believes that he was laying on the floor for approximately 25 minutes. The patient denies losing consciousness. He denies any chest pain or pressure at the time of examination. He denies shortness of breath. He denies any further episodes of hematemesis. He does report having some occasional chest pains at home which usually resolve with rest. Patient's vitals are stable at time of examination. DIAGNOSTICS: - EKG reveals sinus mechanism with no signs of acute ischemia - Chest xray negative for acute process. COPD changes. - Laboratory data: WBC 10.9. Hemoglobin 10.8. Platelet count 214. Sodium 139. Potassium 5.1. BUN 30. Creatinine 1.45. Troponin 0.058. Creatinine kinase 78. - Current home cardiac medications include Plavix 75 mg daily, Farxiga 5 mg daily, Imdur 60 mg daily, Ranexa 1000 mg twice a day, metoprolol succinate 50 mg daily, aspirin 81 mg daily, Lipitor 80 mg daily - Most recent echocardiogram obtained in December 2023 revealed ejection fraction 35 to 40% with hypokinesis of the septum and apex, mild pulm and hypertension, low-flow aortic stenosis, and mild aortic regurgitation - Cardiac catheterization history: 01/15/2024 revealing calcified right and left coronary system with severe triple-vessel coronary artery disease and severe disease involving the left main coronary artery. Elevated left-sided filling pressures. 01/29/2024 Patient examined this morning at the bedside. Patient currently denies chest pain or pressure. He denies shortness of breath. Patient does report having a few episodes of diarrhea yesterday. He states he has only had 1 episode of diarrhea today. Vital signs are stable. PHYSICAL EXAM: VITAL SIGNS: Reviewed. GENERAL: Well-developed in no acute distress. Frail. HEENT: Head is normocephalic. Pupils are equal, round. Sclerae anicteric. Mucous membranes of the mouth are moist. Neck supple. No JVD or thyromegaly LUNGS: Respirations even and unlabored. Lungs essentially clear to auscultation bilaterally. HEART: Regular rate and rhythm. S1 and S2 heard. ABDOMEN: Soft. Nondistended. Nontender. EXTREMITIES: Normal range of motion. No clubbing or cyanosis. Peripheral pulses intact. No lower extremity edema NEUROLOGIC: Awake and alert. Oriented x 3. ASSESSMENT: 1. Generalized weakness 2. Status post mechanical fall with no evidence of syncope 3. Recent non-STEMI, 01/15/2024, status post heart cath revealing severe triple-vessel CAD and severe disease involving left main, not a candidate for PCI or CABG, on dual antiplatelet therapy with aspirin and Plavix 4. Ischemic cardiomyopathy, ejection fraction 35 to 40% 5. Recent hospitalization for hematemesis, acute kidney injury, and non-STEMI 6. Acute kidney injury 7. Abnormal troponin, likely secondary to recent non-STEMI with peak troponin of 4.0 along with poor renal clearance, no evidence of acute coronary syndrome 8. Hypertension 9. Hyperlipidemia 10. History of aortic aneurysm with previous stent grafting 11. Fraility 12. Protein calorie malnutrition, Total protein 6.0, BMI 14.5 13. COPD with former nicotine dependence PLAN: An acute coronary event has been ruled out Continue current cardiac medications including dual antiplatelet therapy with aspirin and Plavix due to recent non-STEMI Patient with MOO. Although improving from previous admission. Patient would benefit from FREIDA/ARB when acute kidney injury resolves. Recheck BMP in a.m. PT/OT consulted. Patient may benefit from ECF placement for rehab Currently stable from a cardiac standpoint. Discharge per medicine. Further recommendations pending patient course Nurse practitioner note has been reviewed by physician. Signing provider agrees with the documented findings, assessment, and plan of care documented by FINANCIAL PLANNER as a scribe. Objective - Vital Signs Vital signs: Vital Signs Temp 97.3 F L 01/29/24 11:22 Pulse 66 01/29/24 11:22 Resp 17 01/29/24 11:22 BP 139/64 01/29/24 11:22 Pulse Ox 100 01/29/24 11:22 FiO2 Intake & Output 01/28/24 01/29/24 01/29/24 18:59 06:59 18:59 Output Total 340 Balance -340 Weight 39.463 kg 44 kg Output: Urine 340 Other: Voiding Method Indwelling Catheter Indwelling Catheter # Bowel Movements 2 1 - Labs CBC & Chem 7: 01/29/24 07:07 01/29/24 07:07 Labs: Abnormal Lab Results - Last 24 Hours (Table) 01/29/24 01/29/24 Range/Units 07:07 07:07 RBC 3.09 L (4.30-5.90) m/uL Hgb 10.3 L (13.0-17.5) gm/dL Hct 31.6 L (39.0-53.0) % MCV 102.3 H (80.0-100.0) fL Chloride 108 H (98-107) mmol/L BUN 27 H (9-20) mg/dL Creatinine 1.27 H (0.66-1.25) mg/dL Calcium 8.1 L (8.4-10.2) mg/dL
[2024-01-29] MEDS: LOPERAMIDE 2 MG CAP PO PRN (20:58)
--- NOTE | 2024-01-30 02:56 | PN ---
PROGRESS NOTE DATE OF SERVICE: 01/29/2024 SUBJECTIVE: This is an 88-year-old gentleman, who was admitted with generalized weakness and possible myopathy, also had elevated troponin. The patient is undergoing PT/OT for ECF rehab. The patient had recent non ST elevation myocardial infarction. The patient is complaining of diarrhea. OBJECTIVE: VITAL SIGNS: Pulse is 66, blood pressure 130/64, respirations 17. HEENT: Conjunctivae normal. CARDIOVASCULAR: S1, S2. RESPIRATIONS: Breath sounds diminished at the bases. ABDOMEN: Soft. LEGS: No edema. NERVOUS SYSTEM: Diffusely weak. LABORATORY DATA: Reviewed. Creatinine 1.27. ASSESSMENT: 1. Generalized weakness and tiredness, possible myopathy. 2. Elevated troponin, recent acute [id number]-elevation myocardial infarction. 3. Dehydration with acute renal failure. 4. Diarrhea. 5. Coronary artery disease. 6. Chronic obstructive pulmonary disease. 7. Gastroesophageal reflux disease. 8. Multiple complex medical issues. 9. Gait dysfunction. RECOMMENDATIONS: Recommend to continue current management and continue symptomatic treatment. C diff is negative, Imodium p.r.n. Closely follow with Cardiology. Otherwise, repeat labs. Increase ambulation. Possible ECF rehab. MMODL / IJN: [id number] /
[2024-01-30 07:13] LABS: Basophils % (A) 0 %; Eosinophils # (A) 0.2 k/uL (0-0.7); Eosinophils % (A) 2 %; HCT 30.8 % (39.0-53.0); HGB 9.9 gm/dL (13.0-17.5); Hypochromasia Slight; Lymphocytes # (A) 0.9 k/uL (1.0-4.8); Lymphocytes % (A) 9 %; MCH 33.1 pg (25.0-35.0); MCHC 32.2 g/dL (31.0-37.0); MCV 102.6 fL (80.0-100.0); Macrocytosis Slight; Mean Platelet Volume 7.2; Monocytes # (A) 0.5 k/uL (0-1.0); Monocytes % (A) 5 %; Neutrophils # (A) 8.7 k/uL (1.3-7.7); Neutrophils % (A) 84 %; Platelet Count 178 k/uL (150-450); RDW 13.4 % (11.5-15.5); WBC 10.4 k/uL (3.8-10.6)
[2024-01-30 07:35] LABS: African American GFR (CKD) 49 (>60 ml/min/1.73 sqM); Anion Gap 5 mmol/L; Blood Urea Nitrogen 35 mg/dL (9-20); Carbon Dioxide 24 mmol/L (22-30); Chloride 109 mmol/L (98-107); Glucose 77 mg/dL (74-99); Non-African American GFR(CKD) 42 (>60 ml/min/1.73 sqM); Potassium 4.6 mmol/L (3.5-5.1); Sodium 138 mmol/L (137-145)
--- NOTE | 2024-01-30 12:57 | P.PN ---
Subjective HISTORY OF PRESENT ILLNESS: This is a 88-year-old male with a past medical history significant for coronary artery disease, cardiomyopathy, hypertension, and hyperlipidemia. Patient follows in the office with Dr. Smith. We have been asked to see the patient in consultation for elevated troponin. Patient examined at the bedside in the emergency room. Patient was admitted to the hospital at the end of December 2023 secondary to hematemesis. Patient was scheduled for EGD with general surgery during that admission. However the patient did develop chest discomfort with EKG changes and elevated troponins. The patient went for cardiac cathete rization with Dr. Smith on 01/15/2024 revealing severe triple-vessel coronary artery disease and severe disease involving the left main coronary artery. Patient was not a candidate for PCI per Dr. Smith and unlikely that patient would be CABG candidate. Patient was agreeable to medical management. The patient's hemoglobin stabilized and he had no further episodes of hematemesis. The patient did not end up undergoing EGD. The patient was also treated for acute kidney injury at that time. The patient was discharged home in stable condition. The patient presented back to the hospital today after sustaining a fall at home. The patient states he was trying to get out of bed when he began to feel very weak and fell. He states he was trying to climb back up onto the bed but was unable. He was able to reach for his cell phone and called a neighbor to help him. He believes that he was laying on the floor for approximately 25 minutes. The patient denies losing consciousness. He denies any chest pain or pressure at the time of examination. He denies shortness of breath. He denies any further episodes of hematemesis. He does report having some occasional chest pains at home which usually resolve with rest. Patient's vitals are stable at time of examination. DIAGNOSTICS: - EKG reveals sinus mechanism with no signs of acute ischemia - Chest xray negative for acute process. COPD changes. - Laboratory data: WBC 10.9. Hemoglobin 10.8. Platelet count 214. Sodium 139. Potassium 5.1. BUN 30. Creatinine 1.45. Troponin 0.058. Creatinine kinase 78. - Current home cardiac medications include Plavix 75 mg daily, Farxiga 5 mg daily, Imdur 60 mg daily, Ranexa 1000 mg twice a day, metoprolol succinate 50 mg daily, aspirin 81 mg daily, Lipitor 80 mg daily - Most recent echocardiogram obtained in December 2023 revealed ejection fraction 35 to 40% with hypokinesis of the septum and apex, mild pulm and hypertension, low-flow aortic stenosis, and mild aortic regurgitation - Cardiac catheterization history: 01/15/2024 revealing calcified right and left coronary system with severe triple-vessel coronary artery disease and severe disease involving the left main coronary artery. Elevated left-sided filling pressures. 01/29/2024 Patient examined this morning at the bedside. Patient currently denies chest pain or pressure. He denies shortness of breath. Patient does report having a few episodes of diarrhea yesterday. He states he has only had 1 episode of diarrhea today. Vital signs are stable. 01/30/2024 Patient examined this morning the bedside. Patient currently denies chest pain or pressure. He denies shortness of breath. Vital signs are stable. Discharge planning is underway to [facility]. PHYSICAL EXAM: VITAL SIGNS: Reviewed. GENERAL: Well-developed in no acute distress. Frail. HEENT: Head is normocephalic. Pupils are equal, round. Sclerae anicteric. Mucous membranes of the mouth are moist. Neck supple. No JVD or thyromegaly LUNGS: Respirations even and unlabored. Lungs essentially clear to auscultation bilaterally. HEART: Regular rate and rhythm. S1 and S2 heard. ABDOMEN: Soft. Nondistended. Nontender. EXTREMITIES: Normal range of motion. No clubbing or cyanosis. Peripheral pulses intact. No lower extremity edema NEUROLOGIC: Awake and alert. Oriented x 3. ASSESSMENT: 1. Generalized weakness 2. Status post mechanical fall with no evidence of syncope 3. Recent non-STEMI, 01/15/2024, status post heart cath revealing severe triple- vessel CAD and severe disease involving left main, not a candidate for PCI or CABG, on dual antiplatelet therapy with aspirin and Plavix 4. Ischemic cardiomyopathy, ejection fraction 35 to 40% 5. Recent hospitalization for hematemesis, acute kidney injury, and non-STEMI 6. Acute kidney injury 7. Abnormal troponin, likely secondary to recent non-STEMI with peak troponin of 4.0 along with poor renal clearance, no evidence of acute coronary syndrome 8. Hypertension 9. Hyperlipidemia 10. History of aortic aneurysm with previous stent grafting 11. Fraility 12. Protein calorie malnutrition, Total protein 6.0, BMI 14.5 13. COPD with former nicotine dependence PLAN: An acute coronary event has been ruled out Continue current cardiac medications including dual antiplatelet therapy with as pirin and Plavix due to recent non-STEMI Patient with MOO. Although improving from previous admission. Patient would benefit from FREIDA/ARB when acute kidney injury resolves. Recheck BMP in a.m. PT/OT consulted. Patient may benefit from ECF placement for rehab Currently stable from a cardiac standpoint. Discharge per medicine. We will sign off. Please reconsult if needed. Nurse practitioner note has been reviewed by physician. Signing provider agrees with the documented findings, assessment, and plan of care documented by CREDIT CONTROL OFFICER as a scribe. Objective - Vital Signs Vital signs: Vital Signs Temp 98 F 01/30/24 08:00 Pulse 73 01/30/24 08:00 Resp 18 01/30/24 08:00 BP 128/66 01/30/24 08:00 Pulse Ox 100 01/30/24 08:00 FiO2 Intake & Output 01/29/24 01/30/24 01/30/24 18:59 06:59 18:59 Intake Total 118 Output Total 890 200 Balance -772 -200 Weight 43 kg Intake: Oral 118 Output: Urine 890 200 Other: Voiding Method Indwelling Catheter Indwelling Catheter Indwelling Catheter # Bowel Movements 1 1 1 - Labs CBC & Chem 7: 01/30/24 06:52 01/30/24 06:52 Labs: Abnormal Lab Results - Last 24 Hours (Table) 01/30/24 01/30/24 Range/Units 06:52 06:52 RBC 3.00 L (4.30-5.90) m/uL Hgb 9.9 L (13.0-17.5) gm/dL Hct 30.8 L (39.0-53.0) % MCV 102.6 H (80.0-100.0) fL Neutrophils # 8.7 H (1.3-7.7) k/uL Lymphocytes # 0.9 L (1.0-4.8) k/uL Chloride 109 H (98-107) mmol/L BUN 35 H (9-20) mg/dL Creatinine 1.46 H (0.66-1.25) mg/dL Calcium 8.0 L (8.4-10.2) mg/dL
[2024-01-30 13:57] VITALS: BMI 15.7
--- NOTE | 2024-01-31 08:59 | P.PN ---
Subjective Progress Note Date: 01/31/24 This is an 88-year-old male who was recently admitted with generalized weakness with falling along with ongoing shortness of breath. Patient being monitored by cardiology as patient had elevated troponins and also was recently hospitalized for an NSTEMI. Patient recently underwent cardiac catheterization with triple- vessel disease noted and not a surgical candidate. Continuing with maximizing medical management. Patient had extensive diarrhea and testing was negative and was started on Imodium. Less frequent diarrhea noted although patient continues with significant weakness. Patient is extremely reluctant to go to rehab although is agreeable and knows he needs it. Patient has been accepted at [facility] and currently awaiting insurance authorization and a bed. Recommend PT/OT therapy daily Review of systems: Constitutional: No reports of fatigue, fever, or chills Cardiovascular: No reports of chest pain or palpitations Respiratory: reports of shortness of breath with exertion GI: No reports of nausea, no reports of vomiting, diarrhea although less frequent : No reports of dysuria or retention Neurovascular: reports of generalized weakness, difficulty ambulating All medications have been reviewed PHYSICAL EXAMINATION: GENERAL: The patient is asleep although arousable, alert and oriented x2-3, baseline. Well developed, elderly appearing, ill-appearing, thin built HEENT: Pupils are round and equally reacting to light. EOMI. no scleral icterus. No conjunctival pallor. Normocephalic, atraumatic. No pharyngeal erythema. No thyromegaly. CARDIOVASCULAR: S1 and S2 muffled PULMONARY: diminished breath sounds bilaterally with some coarse scattered rhonchi noted. ABDOMEN: soft. Nontender on exam. Thin. Non-distended, normoactive bowel sounds. No palpable organomegaly. MUSCULOSKELETAL: No joint swelling or deformity. EXTREMITIES: No cyanosis, clubbing, or pedal edema. Muscle wasting noted of upper and lower extremities NEUROLOGICAL: Gross neurological examination did not reveal any focal deficits. Diffuse weakness SKIN: No rashes. Assessment: Generalized weakness and fatigue, possibly secondary to myopathy Elevated troponin, recent acute NSTEMI Ischemic cardiomyopathy, EF is 35 to 40% Dehydration with acute renal failure secondary to ongoing diarrhea Diarrhea, C. difficile ruled out Coronary artery disease history Chronic obstructive pulmonary disease history Chronic hypoxic respiratory failure maintained on 3 L outpatient nasal cannula Gastroesophageal reflux disease Hypertension history Hyperlipidemia Bladder cancer and prostate cancer history GI prophylaxis DVT prophylaxis Full code with no intubation Plan: Recommend to continue with current medications and management with cardiology following. Patient has been cleared by cardiology for continued current medical management and outpatient follow-up. Patient recently underwent catheterization showing triple-vessel disease and is not a candidate and will continue to maximize medical therapy. Patient with generalized weakness evaluated by PT/OT therapy recommending rehab and initially patient was reluctant although now agreeable. Patient has been accepted at [facility] and currently awaiting insurance authorization and a bed Continue with current medications Encouraged increase activity as tolerated Continue other supportive care Due to multiple complex medical issues, overall prognosis is poor and guarded Possible discharge planning in the next 24 to 48 hours The impression and plan of care has been dictated by Peggy Zuñiga, nurse practitioner as directed. Dr. Charles MD I have performed a history and examination and MDM of this patient, discussed the same with the dictator, and agree with the dictator's assessment and plan as written ,documented as a scribe. Based on total visit time, I have performed more than 50% of the visit. Any additional findings or plans will be noted. Objective - Vital Signs Vital signs: Vital Signs Temp 97.8 F 01/31/24 04:03 Pulse 57 L 01/31/24 04:03 Resp 16 01/31/24 04:03 BP 111/59 01/31/24 04:03 Pulse Ox 96 01/31/24 04:03 FiO2 Intake & Output 01/30/24 01/31/24 01/31/24 18:59 06:59 18:59 Intake Total 0 20 Output Total 200 650 Balance -200 -630 Weight 43 kg 45 kg Intake: IV 20 Invasive Line 1 20 Oral 0 Output: Urine 200 650 Uretheral (Martínez) 250 Other: Voiding Method Indwelling Catheter Indwelling Catheter # Voids 1 # Bowel Movements 1 1 - Labs CBC & Chem 7: 01/30/24 06:52 01/30/24 06:52
[2024-01-31 09:15] VITALS: TEMP 98.9
[2024-01-31] MEDS: NITROGLYCERIN SL TABS 0.4 MG TAB SUBLINGUAL PRN (10:40)
[2024-01-31 10:52] VITALS: RESP 18
[2024-01-31 10:56] VITALS: BP 114/67; PULSE 86
--- NOTE | 2024-01-31 14:42 | P.DS ---
Providers Date of admission: 01/28/24 15:47 Expected date of discharge: 01/31/24 Attending physician: Jess Soto Primary care physician: Stated None Hospital Course: Final diagnosis Generalized weakness and fatigue, likely secondary to myopathy Elevated troponin, recent acute NSTEMI Ischemic cardiomyopathy, EF is 35 to 40% Dehydration with acute renal failure secondary to ongoing diarrhea, improving Diarrhea, C. difficile ruled out Coronary artery disease history Chronic obstructive pulmonary disease history Chronic hypoxic respiratory failure maintained on 3 L outpatient nasal cannula Gastroesophageal reflux disease Hypertension history Hyperlipidemia Bladder cancer and prostate cancer history GI prophylaxis DVT prophylaxis Full code with no intubation Discharge disposition Patient is being discharged in a stable condition with guarded prognosis to [facility]. Patient will follow-up with Dr. Sosa in the outpatient setting upon discharge. Patient is to continue with current medications and outpatient follow-up with pulmonary and cardiology as scheduled. Total time taken is greater than 35 minutes. Hospital course This is a 88-year-old male who was recently admitted with generalized weakness and fatigue with falls being closely monitored. Patient with significant comorbidities including ischemic cardiomyopathy, COPD, CHF patient has been hospitalized frequently recently underwent cardiac catheterization which revealed triple-vessel disease and patient is not a surgical candidate for surgical intervention recommending continuing with maximizing medical therapy. Patient has been cleared by consultations for discharge and initially wanted to go home although has been progressively more weak and dizzy and evaluated by physical therapy and recommending rehab and patient is now agreeable. Patient has received insurance authorization and will be going to [facility]. Please refer to other consultation notes for further HPI. Currently no reports of chest pain, shortness of breath, or palpitations. Patient is afebrile. No reports of nausea or vomiting and patient is tolerating diet. Patient will be going to [facility] today. Guarded prognosis and high risk for readmissions Physical exam: Gen: This is a 88-year-old male who is awake, alert and oriented x 2-3, thin built, elderly appearing, cachectic HEENT: Head is atraumatic, normocephalic. Pupils equal, round. Sclerae is anicteric. NECK: Supple. No JVD. No lymphadenopathy. No thyromegaly. LUNGS: Clear to auscultation. No wheezes or rhonchi. No intercostal retractions. HEART: Regular rate and rhythm. No murmur. ABDOMEN: Soft. Thin, scaphoid diffusely weak bowel sounds are present. No masses. No tenderness. EXTREMITIES: No pedal edema. No calf tenderness. NEUROLOGICAL: Patient is awake, alert and oriented x3. Cranial nerves 2 through 12 are grossly intact. Please refer to medication reconciliation sheet for a list of medications. The impression and plan of care has been dictated by Peggy Zuñiga, Nurse Practitioner as directed. Dr. Charles MD I have performed a history and examination and MDM of this patient, discussed the same with the dictator, and agree with the dictator's assessment and plan as written ,documented as a scribe. Based on total visit time, I have performed more than 50% of the visit. Patient Condition at Discharge: Stable Plan - Discharge Summary Discharge Rx Participant: No New Discharge Prescriptions: New Pantoprazole Sodium [Protonix] 40 mg PO DAILY #30 tab Heparin Sodium,Porcine (1 ml) [Heparin Sodium] 5,000 unit SQ Q12HR each Loperamide [Imodium] 2 mg PO QID PRN cap PRN Reason: Diarrhea Nitroglycerin Sl Tabs [Nitrostat] 0.4 mg SUBLINGUAL Q5M PRN tab PRN Reason: Chest Pain HYDROcodone/APAP 5-325MG [[place] 5-325] 1 each PO Q6HR PRN #4 tab PRN Reason: Pain Continue Aspirin 81 mg PO HS Atorvastatin [Lipitor] 80 mg PO HS #90 tab Clopidogrel [Plavix] 75 mg PO DAILY #90 tab Ranolazine [Ranexa] 1,000 mg PO Q12HR #90 tab Albuterol Inhaler [Ventolin Hfa Inhaler] 2 puff INHALATION RT-Q4H PRN PRN Reason: Shortness Of Breath Metoprolol Succinate (ER) [Toprol XL] 50 mg PO DAILY Dapagliflozin Propanediol [Farxiga] 5 mg PO DAILY #90 tab Isosorbide Mononitrate ER [Imdur] 60 mg PO DAILY #90 tab Discontinued Pantoprazole [Protonix] See Taper PO DIRECTED Discharge Medication List Aspirin 81 mg PO HS 05/03/23 [History] Albuterol Inhaler [Ventolin Hfa Inhaler] 2 puff INHALATION RT-Q4H PRN 01/13/24 [History] Metoprolol Succinate (ER) [Toprol XL] 50 mg PO DAILY 01/13/24 [History] Atorvastatin [Lipitor] 80 mg PO HS #90 tab 01/17/24 [Rx] Clopidogrel [Plavix] 75 mg PO DAILY #90 tab 01/17/24 [Rx] Dapagliflozin Propanediol [Farxiga] 5 mg PO DAILY #90 tab 01/17/24 [Rx] Isosorbide Mononitrate ER [Imdur] 60 mg PO DAILY #90 tab 01/17/24 [Rx] Ranolazine [Ranexa] 1,000 mg PO Q12HR #90 tab 01/17/24 [Rx] HYDROcodone/APAP 5-325MG [[place] 5-325] 1 each PO Q6HR PRN #4 tab 01/31/24 [Rx] Heparin Sodium,Porcine (1 ml) [Heparin Sodium] 5,000 unit SQ Q12HR each 01/31/24 [Rx] Loperamide [Imodium] 2 mg PO QID PRN cap 01/31/24 [Rx] Nitroglycerin Sl Tabs [Nitrostat] 0.4 mg SUBLINGUAL Q5M PRN tab 01/31/24 [Rx] Pantoprazole Sodium [Protonix] 40 mg PO DAILY #30 tab 01/31/24 [Rx] Follow up Appointment(s)/Referral(s): Pj Dunham MD [STAFF PHYSICIAN] - 1 Week Germaine Chen MD [STAFF PHYSICIAN] - 1 Week Cesar Sosa MD [REFERRING] - (This doctor is in your area and your PA Lenora has recommended him to you. ) Activity/Diet/Wound Care/Special Instructions: Patient is going to [id number] Activity as tolerated Continue heart healthy diet Continue with as needed Imodium for diarrhea Follow-up with pulmonary and cardiology outpatient as needed Discharge Disposition: TRANSFER TO SNF/ECF
== END 2024-01-31 16:11 | DRG 91 ==
LOC: EC 09:45 → 3SCARD 13:39 → OBSVTOIN 15:47 → 3SCARD 17:30
PROVIDERS: ADMIT Hospitalist; ATTEND Hospitalist
DX: G72.9 Myopathy, unspecified (principal); I21.4 Non-ST elevation (NSTEMI) myocardial infarction; E46 Unspecified protein-calorie malnutrition; N17.9 Acute kidney failure, unspecified; Z68.1 Body mass index [BMI] 19.9 or less, adult; J96.11 Chronic respiratory failure with hypoxia; I25.5 Ischemic cardiomyopathy; E78.5 Hyperlipidemia, unspecified; J44.9 Chronic obstructive pulmonary disease, unspecified; R54 Age-related physical debility; K21.9 Gastro-esophageal reflux disease without esophagitis; E86.0 Dehydration; I25.10 Atherosclerotic heart disease of native coronary artery without angina pectoris; I10 Essential (primary) hypertension; R26.9 Unspecified abnormalities of gait and mobility; W06.XXXA Fall from bed, initial encounter; Y92.009 Unspecified place in unspecified non-institutional (private) residence as the place of occurrence of the external cause; Z79.02 Long term (current) use of antithrombotics/antiplatelets; Z87.891 Personal history of nicotine dependence; Z85.51 Personal history of malignant neoplasm of bladder; Z86.79 Personal history of other diseases of the circulatory system; Z85.46 Personal history of malignant neoplasm of prostate; Z79.82 Long term (current) use of aspirin; Z79.84 Long term (current) use of oral hypoglycemic drugs
CPT/HCPCS: 36415; 71046; 80048; 80053; 81001; 82550; 83605; 83735; 84484; 85025; 85610; 85730; 87324; 93005; 99285